=== PATIENT | male | born 1985 | race Caucasian/White ===

== ENCOUNTER 2017-10-16 15:16 | Inpatient (IN) | payer SELFPAY ==
[2017-10-16] MEDS ORDERED: Labetalol IV* 5 MG/ML 20 ML VIAL IV PUSH ONE (16:08)
[2017-10-16] MEDS ORDERED: NS 0.9% 1000 ML* 1,000 ML IV ONE (16:08)
[2017-10-16 16:18] LABS: ABS Basophils 0.1 10^3/ul (0-0.2); ABS Eosinophils 0.1 10^3/ul (0-0.6); ABS Lymphocytes 2.6 10^3/ul (1.0-4.8); ABS Monocytes 0.9 10^3/ul (0-0.8); ABS Neutrophils 4.6 10^3/ul (1.5-7.7); ABS Nucleated RBC 0 10^3/ul; Eosinophil % 1.3 % (0-6); Hematocrit 41 % (42-52); Hemoglobin 13.8 g/dl (14.0-18.0); Lymphocyte % 31.3 % (25-47); Mean Corpuscular HGB Conc 34 g/dl (31-36); Mean Corpuscular Hemoglobin 27 pg (27-31); Mean Corpuscular Volume 80 fL (80-94); Mean Platelet Volume 7.8 um3 (7.4-10.4); Nucleated Red Blood Cells % 0.1; Platelet Count 299 10^3/ul (150-450); Red Blood Count 5.18 10^6/ul (4.0-5.4); Red Cell Distribution Width 15 % (10.5-15); White Blood Count 8.4 10^3/ul (3.5-10.8)
[2017-10-16 16:27] LABS: INR 1.4 (0.77-1.02)
[2017-10-16 16:38] LABS: EGFR Non-African American 188.3 (>60)
--- NOTE | 2017-10-16 16:46 | RAD ---
Indication: Chest pain. Single frontal view of the chest performed at 1620 hours was reviewed. No prior study is available for comparison. Cardiomegaly. No mediastinal shift is noted. Lung moraes demonstrate prominent vascular markings which may represent vascular congestion however no definite pneumonia is noted. IMPRESSION: CARDIOMEGALY WITH MILD VASCULAR CONGESTION.
[2017-10-16] MEDS ORDERED: Iohexol 350* (CONTRAST) 500 ML MDV IV ONE (17:14)
[2017-10-16] MEDS ORDERED: Propranolol TAB* 20 MG PO ONE (17:24)
[2017-10-16] MEDS ORDERED: Magnesium Oxide TAB* 400 MG PO ONE (17:38)
--- NOTE | 2017-10-16 18:11 | RAD ---
Indication: Shortness of breath, chest pain. Contrast: Administered 85.2 ml of OMNIPAQUE 350 mg/ml CTA of the chest performed after IV contrast administration. Coronal and sagittal reconstructed images were obtained. The pulmonary arterial tree is well opacified. There are no filling defects present to suggest pulmonary embolus. The thoracic aorta demonstrates no evidence of thoracic aortic dissection or aneurysmal dilatation. There is cardiomegaly noted without evidence of pericardial effusion. There is a moderate-sized right pleural effusion noted. The trachea and major bronchi appear patent. Prominent vascular markings suggestive of CHF is present. The lung moraes demonstrate no focal nodules. There is moderate mediastinal adenopathy noted. There is right paratracheal lymph nodes measuring up to 18 mm, pretracheal lymph node measuring up to 17 mm, prevascular space lymph node measuring up to 17 mm. AP window lymph nodes are noted measuring up to 11 mm. Precarinal lymph nodes are noted measuring up to 19 mm. Right hilar adenopathy measuring up to 31 mm is noted. Subcarinal lymph nodes are noted measuring up to 15 mm. The visualized abdominal organs are otherwise unremarkable. Multiple gallstones are noted in the gallbladder. IMPRESSION: No evidence of pulmonary embolus is noted. Moderate degree of right pleural effusion with vascular congestion. Moderate degree of mediastinal and hilar adenopathy of uncertain etiology.
[2017-10-16] MEDS ORDERED: Propranolol TAB* 40 MG PO ONE (18:35)
[2017-10-16] MEDS ORDERED: Magnesium Sulfate 2 GM IV* 2 GM/50 ML BAG IVPB ONE (19:02)
[2017-10-16] MEDS: Hydrocortisone INJ* 100 MG VIAL IV SCH (19:52)
[2017-10-16] MEDS: Ondansetron 40 MG VIAL* 2 MG/ML 20 ML VIAL IV PRN (20:21)
--- NOTE | 2017-10-16 20:30 | RAD ---
Indication: Thyromegaly. Real-time sonography of the thyroid was performed. The right lobe measures 5.7 x 2.6 x 2.5 cm. The left lobe measures 5.7 x 2.6 x 2.4 cm. The thyroid is enlarged. Heterogeneous echotexture is noted. IMPRESSION: Heterogeneously enlarged thyroid gland.
[2017-10-16] MEDS: Propylthiouracil TAB* 50 MG PO SCH ×2 (20:45→23:40)
[2017-10-16] MEDS: Heparin VIAL(*) 5000 UNITS/ML VIAL (FIVE THOUSAND) SUBCUT SCH (21:56)
[2017-10-16] MEDS ORDERED: diPHENhydraMINE PO* 50 MG PO PRN (23:14)
--- NOTE | 2017-10-16 23:25 | HP ---
HISTORY AND PHYSICAL: DATE OF ADMISSION: 10/16/17 PRIMARY CARE PROVIDER: None. ATTENDING PHYSICIAN: Dr. Dante Prieto * (dictated by Joy Torrez NP) . CHIEF COMPLAINT: Shortness of breath and midsternal chest pain. HISTORY OF PRESENT ILLNESS: Mr. Pearce is a 31-year-old male with no significant past medical history who states that for approximately 1 year he has had shortness of breath that started out as exertional and has increased to at rest. He also reports being unable to barely go up 1 flight of stairs without significant shortness of breath. He reports developing midsternal constant chest discomfort that has been present for a week. He feels as though Advil may be helping somewhat his discomfort, the pain is worse with deep breaths. He has also been tachycardic with heart rates in the 140s for the last few months. He has been checking his heart rates on his cell phone. He reports abdominal bloating, but denies abdominal pain. He has lower extremity edema, but states that he always has "large legs." The patient states that his shortness of breath is worse when lying back. He denies any fevers, chills, cough. He also reports daily vomiting for 1 to 2 months and nausea. He has upper and lower extremity tremors for approximately 1 year. He reports having no energy. He reports often feeling "hot" and having poor heat tolerance. He denies any urinary symptoms. He reports having some diarrhea when he has the other GI upset of nausea and vomiting. He reports steadily gaining weight over the last few years, but has lost 25 pounds in 10 months without trying to lose weight. He denies anxiety and has been having difficulty sleeping. Due to his increased shortness of breath, he presented to the emergency room for further evaluation. While in the emergency room, the patient was noted to be in sinus tachycardia. He received a dose of IV labetalol. He had a chest x-ray showing cardiomegaly with mild vascular congestion. His magnesium was 1.7. His total bilirubin 2.3 , ALT 48, AST 49. TSH 0.00, T4 19.96. BNP 560. D-dimer 377. He was noted to be mildly anemic with a hemoglobin of 13.8 and hematocrit of 41. He had a CTA of his chest showing no evidence of pulmonary embolus, moderate degree of right pleural effusion with vascular congestion, moderate degree of mediastinal and hilar adenopathy of uncertain etiology. The patient additionally received propranolol in the emergency room. His heart rate continued to be in the 130s to 140s. Hospitalists were asked to evaluate the patient for admission. PAST MEDICAL HISTORY: None. PAST SURGICAL HISTORY: Status post wisdom teeth extraction. HOME MEDICATIONS: Multivitamin 1 tablet oral daily. ALLERGIES: No known drug allergies. FAMILY HISTORY: The patient denies any family history of thyroid disease, coronary artery disease, diabetes mellitus. He had a paternal grandmother with a history of a brain tumor. SOCIAL HISTORY: The patient has smoked intermittently for 16 years up to a half a pack a day. He is currently not smoking. He drinks 2 beers daily, but states he has not drank beer in a week. He denies recreational drugs. His mother, Zora Knapp, will be his surrogate decision maker in the event he is unable to make decisions for himself. REVIEW OF SYSTEMS: I performed an 11-point review of systems. All the pertinent positives and negatives are mentioned in the history of present illness. The remaining review of systems is negative. PHYSICAL EXAMINATION GENERAL APPEARANCE: The patient is alert, pleasant, appears to be in no acute distress. VITAL SIGNS: Temperature 97.8, heart rate 137, respiratory rate 19, O2 sat 94% on room air, blood pressure 120/95. HEENT: Normocephalic, atraumatic. Pupils are equal and reactive to light. Extraocular movements are intact. NECK: Supple. No lymphadenopathy noted. Large, and jugular vein distention noted. RESPIRATORY: There is no accessory muscle use. Lungs have crackles in bilateral bases. CARDIOVASCULAR: Regular rate and rhythm. Tachycardic. S1, S2 present. There are no murmurs, rubs, or gallops heard. ABDOMEN: Soft, large, nontender, and nondistended. There are bowel sounds present x4. EXTREMITIES: There is 1 to 2+ bilateral lower extremity edema. DP and PT pulses are 2+ and symmetric. MUSCULOSKELETAL: There is no clubbing or cyanosis noted. The patient exhibits good strength in all extremities. Bilateral upper extremity resting tremors. NEUROLOGICAL: The patient is alert and oriented x4. Cranial nerves II through XII are grossly intact. The patient has hyper reflexes in his left patella and right ankle. PSYCHOLOGICAL: The patient is calm and cooperative. SKIN: There are no rashes or abnormalities seen. DIAGNOSTIC STUDIES/LABORATORY DATA: Sodium 141, potassium 3.7, chloride 109, CO2 21, BUN 11, creatinine 0.51, glucose 107. White blood cell count 8.4, hemoglobin 13.8, hematocrit 41, platelet count 299. Magnesium 1.7, alk phos 134. TSH 0.00, T4 19.96. BNP 516. D-dimer 377. AST 49, ALT 48, total bilirubin 2.30. EKG shows a sinus tachycardia at a rate of 140. There is no previous EKGs for comparison. No acute signs of ischemia present. Chest x-ray from today. Radiologist's impression: Cardiomegaly with mild vascular congestion. Chest CTA from today. Radiologist's impression: No evidence of pulmonary embolus is noted. Moderate degree of right pleural effusion with vascular congestion. Moderate degree of mediastinal and hilar adenopathy of uncertain etiology. IMPRESSION: Mr. Pearce is a 31-year-old male with no significant past medical history who presents to the emergency room with complaints of shortness of breath, chest pain, and tachycardia. He will be admitted as an inpatient for thyroid storm and cardiomyopathy. ASSESSMENT/PLAN: 1. Thyroid storm. The patient has tachycardia. He is afebrile. He has no agitation, delirium, psychosis. He does have nausea and vomiting. Additionally , he has crackles giving him 40 points and supporting the diagnosis of thyroid storm. The patient was started on propranolol in the emergency room. I am going to give home an additional 40 mg of propranolol now and then continue him on propranolol 60 mg every 6 hours. Additionally, I have started him on PTU 200 mg oral every 4 hours and hydrocortisone 100 mg IV every 8 hours. I have placed a call to Dr. Alejandra for consultation and I am awaiting a callback at the time of this dictation. Additionally, I have reviewed the case by Dr. Bailey, who is the dispatch machine runner component engineer. We will get a thyroid ultrasound. 2. Tachycardia. I suspect secondary to a thyroid storm. Additionally, the patient appears to have cardiomyopathy I suspect secondary to tachycardia. I am going to hold on diuresis at this time. We will work on controlling his heart rate. We will get an echocardiogram tomorrow. We will get daily weights , strict I's and O's. The patient will be on a low-sodium diet. 3. Elevated D-dimer. CTA was negative for pulmonary embolus. 4. Hypomagnesium. The patient received p.o. and will also receive IV magnesium replacement. We will recheck his magnesium in the morning. 5. Pleural effusion. I suspect this is secondary to the patient's cardiomyopathy. We will ask either Dr. Ch or Dr. Bailey to do a thoracentesis tomorrow. We will get an LDL to eval for possible lymphoma. The patient has mediastinal lymphadenopathy noted on his CTA. 6. Chest pain. The patient's initial troponin is 0.03. We will continue to trend his troponin and monitor on tele. I suspect the chest pain is secondary to the tachycardia and thyroid storm. 7. Elevated LFTs. We will recheck labs in the morning. If they continue to be elevated, he will need further work-up such as a liver ultrasound. 8. Mediastinal lymphadenopathy. We will check a peripheral smear and LDH to eval for possible lymphoma. 9. Fluids, electrolytes, and nutrition. The patient will be on a low-sodium diet. 10. Code status. Full code. 11. DVT prophylaxis. The patient is at high risk and will be placed on subcu heparin. 12. Disposition. Inpatient. TIME SPENT: Time for this admission was approximately 60 minutes, greater than half of that was spent with the patient and his mother discussing medications, past medical history, and the events leading up to his arrival today, performing a physical examination. The case has been reviewed with the attending, Dr. Prieto, in addition to Dr. Bailey the dispatch machine runner component engineer, who agree with the plan of care. Reviewed by MADELEINE DOYLE 10/17/17 0942 [id number] #: [id number] KAR[facility]
[2017-10-16] MEDS: Propranolol TAB* 60 MG PO SCH (23:40)
[2017-10-17] MEDS ORDERED: diPHENhydraMINE PO* 25 MG ONE (00:10)
[2017-10-17] MEDS ORDERED: Morphine INJ* 4 MG/ML 1 ML CARPUJECT IV PRN (03:21)
[2017-10-17] MEDS ORDERED: Morphine VIAL* 4 MG/ML VIAL (1 ml vial) IV ONE ×2 (03:23→03:32)
[2017-10-17] MEDS ORDERED: Morphine INJ* 4 MG/ML 1 ML CARPUJECT IV ONE (03:26)
[2017-10-17] MEDS: Hydrocortisone INJ* 100 MG VIAL IV SCH ×3 (03:36→20:52)
[2017-10-17] MEDS: Propylthiouracil TAB* 50 MG PO SCH ×6 (03:40→23:03)
[2017-10-17 04:26] LABS: EGFR Non-African American 169.1 (>60)
[2017-10-17] MEDS: Heparin VIAL(*) 5000 UNITS/ML VIAL (FIVE THOUSAND) SUBCUT SCH (06:22)
[2017-10-17] MEDS: Propranolol TAB* 60 MG PO SCH ×4 (06:22→23:02)
--- NOTE | 2017-10-17 07:21 | CONSULT ---
History: "I came in because I couldn't breath 2 nights ago - I was up all night" 1 year history: Rapid heart beat Tremors arms/legs Foot pain 2 months - "lots of nausea" Slow decline of "lung capacity" for about 1 year - "Hit me super-hard the other night" Gradual onset of symptoms. Thyroid: Weight - lost 25 lbs over the year. Temperature intolerance "always too hot" Appetite - nausea has been a major trouble. Nauseated Eating habits "trying to deal with nausea - loss of appetite" Strength - weaker Change in bowel habit - "not really". Bowel movements - 4 - 5 per day. Mood - "hard to say - I haven't really noticed" Sleep - "I can't sleep" Skin/Hair - no changes. On his right stephen - it itches. CVS: Edema: "Always had thick legs - everyone thinks they are swollen" Tachycardia - 3 - 4 months Shortness of breath - 1 year Chest pain - yes - 1 week - " in the center of my chest". Radiation - " same spot on my back - right the way through me". "5-6/10 at its worst". Tightness and pressure. No syncope. 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 Current Medications: Current Medications Diphenhydramine HCl (Benadryl Po*) 50 mg PO BEDTIME PRN PRN Reason: INSOMNIA Last Admin: 10/17/17 00:15 Dose: 50 mg Heparin Sodium (Porcine) (Heparin Vial(*)) 5,000 units SUBCUT Q8HR AJAY Last Admin: 10/17/17 06:22 Dose: 5,000 units Hydrocortisone Sodium Succinate (Solu-Cortef*) 100 mg IV Q8H [facility] Last Admin: 10/17/17 03:36 Dose: 100 mg Multivitamins/Minerals (Theragran/Minerals Tab*) 1 tab PO DAILY [facility] Omeprazole (Prilosec Cap*) 20 mg PO BID [facility] Ondansetron HCl (Zofran 40 Mg Vial*) 4 mg IV Q6H PRN PRN Reason: NAUSEA Last Admin: 10/16/17 20:21 Dose: 4 mg Propranolol HCl (Inderal Tab*) 60 mg PO Q6H [facility] Last Admin: 10/17/17 06:22 Dose: 60 mg Propylthiouracil (Ptu Tab*) 200 mg PO Q4H [facility] Last Admin: 10/17/17 03:40 Dose: 200 mg - Review of Systems Constitutional Symptoms: Yes: Fatigue, No: Weight Loss, Fever, Night Sweats Thyroid: Positive: Goiter, Heat Intolerance, Sweatiness, Tremor, Frequent Defecation, Palpitations Endocrinology: Negative: Normal, Adrenal Problems, Gonadal Problems, Family Hx Endocrine Disorders, Obesity, Calluses, Hirsutism, Menstral Abnormalities, Polydipsia, Polyuria, Gonadal Problems, Gynecomastia, Pituitary disease, Other Cardiology: Positive: Chest Pain, Shortness of Breath, Palpitations, Swelling of Ankles Pulmonary: Positive: Sputum, Exercise Intolerance, Home Oxygen Negative: Normal, Hemoptysis, Wheezing, Respiratory Distress, Shortness of Breath, COPD, Asthma, Other Gastroenterology: Positive: Abdominal Pain, Nausea, Vomiting, Anorexia, Indigestion, Difficulty Swallowing - hurts - chest pain, Heartburn, Diarrhea, Change in Bowel Habits Negative: Normal, Constipation, Blood in Stools, Other Eyes: Negative: Normal, Change in Vision, Double Vision, Eye Pain, Glaucoma, Cataract, Contacts or Glasses, Other Neurology: Positive: Unexplained Weakness Negative: Normal, Headache, Migraines, Change in Vision, Diplopia, Dizziness , Change in Balancing, Change in Coordination, Change in Memory, Change in Speech, Change in Sphincter Function, Change in Walking, Numbness\\Paresthesiae, Hx of Stroke\\TIA, Hx of Seizures, Other Dermatology: Rash: Yes - right stephen itchy patch Genital - Urinary: Negative: Normal, Dysuria, Hematuria, Polyuria, Nocturia, Other Musculoskeletal: Negative: Joint Pain, Joint Stiffness, Arthritis, Osteoporosis, Low Back Pain , Sciatica, Joint Deformities, Kyphoscoliosis, Other Allergic/Immunologic: Positive: Other Negative: Hx Anaphylaxis, Hx Angioedema, Hx Environmental, Hx Seasonal, Athsma, Hx HIV - No other autoimmune disease, Immunocompromise, Swollen Glands LymphNodes Past Medical History: Surgery: [place] teeth Hospitalizations - none No other comorbidities Home Medications: Home Medications Medication Instructions Recorded Confirmed Type Multivitamins/Minerals TAB* 1 tab PO DAILY 10/16/17 10/16/17 History [Theragran/minerals TAB*] Allergies: Allergies Allergy/AdvReac Type Severity Reaction Status Date / Time No Known Allergies Allergy Verified 10/16/17 16:05 - Family History Family History: Thyroid disease - paternal grandmother, paternal uncle - thyroid cancer. 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 Vital Signs 10/16/17 10/16/17 10/16/17 19:00 19:21 19:22 Temperature 98.8 F Pulse Rate 138 138 Respiratory 21 20 15 Rate Blood Pressure 138/100 142/94 (mmHg) O2 Sat by Pulse 96 99 Oximetry 10/16/17 10/16/17 10/16/17 19:26 19:30 19:45 Temperature 98.3 F Pulse Rate 138 140 139 Respiratory 20 26 36 Rate Blood Pressure 142/94 129/98 130/94 (mmHg) O2 Sat by Pulse 98 97 97 Oximetry 10/16/17 10/16/17 10/16/17 20:00 20:01 20:15 Temperature Pulse Rate 138 139 138 Respiratory 32 25 21 Rate Blood Pressure 129/97 116/90 (mmHg) O2 Sat by Pulse 99 98 97 Oximetry 10/16/17 10/16/17 10/16/17 20:39 21:00 21:01 Temperature Pulse Rate 134 134 133 Respiratory 26 24 18 Rate Blood Pressure 112/94 140/90 (mmHg) O2 Sat by Pulse 97 96 97 Oximetry 10/16/17 10/16/17 10/16/17 21:31 22:00 22:30 Temperature Pulse Rate 136 135 135 Respiratory 26 29 27 Rate Blood Pressure 124/93 120/92 126/85 (mmHg) O2 Sat by Pulse 96 95 95 Oximetry 10/16/17 10/16/17 10/16/17 23:00 23:01 23:31 Temperature Pulse Rate 138 262 133 Respiratory 21 25 24 Rate Blood Pressure 126/86 121/90 (mmHg) O2 Sat by Pulse 98 96 93 Oximetry 10/16/17 10/16/17 10/17/17 23:45 23:50 00:00 Temperature 98.5 F Pulse Rate 131 132 Respiratory 22 22 20 Rate Blood Pressure 130/83 (mmHg) O2 Sat by Pulse 93 94 Oximetry 10/17/17 10/17/17 10/17/17 01:00 02:00 03:00 Temperature Pulse Rate Respiratory 26 29 24 Rate Blood Pressure 117/89 124/91 (mmHg) O2 Sat by Pulse Oximetry 10/17/17 10/17/17 10/17/17 03:28 03:54 04:00 Temperature 96.5 F Pulse Rate Respiratory 30 23 21 Rate Blood Pressure 115/81 (mmHg) O2 Sat by Pulse Oximetry 10/17/17 10/17/17 05:00 06:00 Temperature Pulse Rate Respiratory 20 21 Rate Blood Pressure 119/80 122/83 (mmHg) O2 Sat by Pulse Oximetry - Physical Exam General Physical Exam Comment: He has a patch of pre-tibial myxedema right stephen General: No Cyanosis, No Anemia, No Jaundice, No Lymphadenopathy, No Clubbing -: No Tremor, Yes Goiter - 30 grams, firm, No Thyroid Nodule, No Thyroid Bruit, No Thyroid Tenderness, No Hoarseness, No Cervical adenopathy, No Supraclav. adenopathy, Yes Proptosis, No Conjunctival Injection, No Lid Lag, No Periorbital Edema, No Dysconjugate Eye Movement, No Other Endocrine: Yes Central Obesity, No Testicular Atrophy, No Under developed secondary sexual characteristics, No Expresible galactorrhea, No Acromegaly, No Vitiligo, No Flushing, No Acanthosis nigricans, No Violaceious striae, No Mel Syndrome, No Buccal pigmenatation, No Otto Crease Pigmentation Lungs and Chest: Yes: Chest Expansion Full, Chest Expansion Symetrica, Percussion Note Resonant, Vessicular Breath Sounds Heart Rate and Rhythm: Tachycardia JVP: Elevated [place] Beat: Displaced Additional Cardiovascular: Yes: Normal Heart Sounds, Heart Murmur, Pedal Edema Abdominal Exam: Yes: Soft, Abdominal Tenderness - epigastric. No: Distention, Rigidity, Abdominal Mass, Hepatomegaly, Splenomegaly, Guarding, Rebound Tenderness, Kidneys Palpable, Normal Bruit, Abnormal Bruit, Bowel Sounds Present Eye Exam: bilateral: EOMI - normal Skin: Abnormal: Rash - Extremities Cranial Nerves II-XII Intact: Yes Limbs: Normal Power, Normal Tone Lab Results: Laboratory Results - last 24 hr 10/16/17 10/16/17 10/17/17 19:43 21:55 03:56 Sodium 138 L Potassium 4.9 Chloride 106 Carbon Dioxide 21 L Anion Gap 11 BUN 15 Creatinine 0.56 L Est GFR ( Amer) 217.4 Est GFR (Non-Af Amer) 169.1 BUN/Creatinine Ratio 26.8 H Glucose 112 H Calcium 9.7 Magnesium 2.2 Total Bilirubin 2.80 H AST 53 H ALT 52 Alkaline Phosphatase 161 H Troponin I 0.03 0.02 Total Protein 6.8 Albumin 3.8 Globulin 3.0 Albumin/Globulin Ratio 1.3 LDL Cholesterol Direct 97 Radiology Results: Patient Name: JORI MOY Medical Record#: [id number] Ordering Physician: ANGELI Torrez Acct.#: [id number] : 1985 Age: 31 Sex: M Location: INTENSIVE CARE UNIT Exam Date: 10/16/171912 ADM Status: ADM IN Order Information: US THYROID Accession Number: [id number] CPT: 65086 Indication: Thyromegaly. Real-time sonography of the thyroid was performed. The right lobe measures 5.7 x 2.6 x 2.5 cm. The left lobe measures 5.7 x 2.6 x 2.4 cm. The thyroid is enlarged. Heterogeneous echotexture is noted. IMPRESSION: Heterogeneously enlarged thyroid gland. <Electronically signed by Carina Cortes MD in OV> 10/16/172026 Dictated By: Carina Cortes MD Dictated Date/Time: 10/16/172026 Transcribed Date/Time: 10/16/172025 Copy to: CC:Donald Alejandra MD; Dante Prieto MD; Joy Torrez NP; Yelena Ch MD; No Primary Care Phys,NOPCP Imaging - [facility] - [facility] - [facility] [id number] [place] [address] [place] [address] ph ([phone]) ph ([phone]) ph ([phone]) Patient Name: JORI MOY Medical Record#: [id number] Ordering Physician: Enoc Russo MD Acct.#: [id number] : 1985 Age: 31 Sex: M Location: EMERGENCY DEPARTMENT Exam Date: 10/16/171707 ADM Status: REG ER Order Information: CTA CHEST Accession Number: [id number] CPT: 62012 Indication: Shortness of breath, chest pain. Contrast: Administered 85.2 ml of OMNIPAQUE 350 mg/ml CTA of the chest performed after IV contrast administration. Coronal and sagittal reconstructed images were obtained. The pulmonary arterial tree is well opacified. There are no filling defects present to suggest pulmonary embolus. The thoracic aorta demonstrates no evidence of thoracic aortic dissection or aneurysmal dilatation. There is cardiomegaly noted without evidence of pericardial effusion. There is a moderate-sized right pleural effusion noted. The trachea and major bronchi appear patent. Prominent vascular markings suggestive of CHF is present. The lung moraes demonstrate no focal nodules. There is moderate mediastinal adenopathy noted. There is right paratracheal lymph nodes measuring up to 18 mm, pretracheal lymph node measuring up to 17 mm, prevascular space lymph node measuring up to 17 mm. AP window lymph nodes are noted measuring up to 11 mm. Precarinal lymph nodes are noted measuring up to 19 mm. Right hilar adenopathy measuring up to 31 mm is noted. Subcarinal lymph nodes are noted measuring up to 15 mm. The visualized abdominal organs are otherwise unremarkable. Multiple gallstones are noted in the gallbladder. IMPRESSION: No evidence of pulmonary embolus is noted. Moderate degree of right pleural effusion with vascular congestion. Moderate degree of mediastinal and hilar adenopathy of uncertain etiology. <Electronically signed by Carina Cortes MD in OV> 10/16/171806 Dictated By: Carina Cortes MD Dictated Date/Time: 10/16/171806 Transcribed Date/Time: 10/16/171801 Copy to: CC:No Primary Care Phys,NOPCP; Enoc Russo MD [facility] [address] [address] ph ([phone]) ph ([phone]) ph ([phone]) 1 of 2 Patient Name: JORI MOY Medical Record#: [id number] Ordering Physician: Enoc Russo MD Acct.#: [id number] : 1985 Age: 31 Sex: M Location: EMERGENCY DEPARTMENT Exam Date: 10/16/17 1556 ADM Status: REG ER Order Information: CHEST AP PORTABLE Accession Number: [id number] CPT: 36275 Indication: Chest pain. Single frontal view of the chest performed at 1620 hours was reviewed. No prior study is available for comparison. Cardiomegaly. No mediastinal shift is noted. Lung moraes demonstrate prominent vascular markings which may represent vascular congestion however no definite pneumonia is noted. IMPRESSION: CARDIOMEGALY WITH MILD VASCULAR CONGESTION. <Electronically signed by Carina Cortes MD in OV> 10/16/171641 Dictated By: Carina Cortes MD Dictated Date/Time: 10/16/171641 Transcribed Date/Time: 10/16/171641 Copy to: CC:No Primary Care Phys,NOPCP; Enoc Russo MD [facility] [address] [facility] [address] [place], [place] [id number] [place] [id number] [place] [address] ph ([phone]) ph ([phone]) ph ([phone]) EKG Report: EKG 10/16/17 rate 141 IN 789 QTC 512 QRS axis -34 Ectopic atrial tachycardia Assessment - Problem List Assessment: Patient Problems Elevated alkaline phosphatase level (Acute) Epigastric pain (Acute) Graves disease (Acute) High output congestive heart failure (Acute) Hilar lymphadenopathy (Acute) Insomnia (Acute) Mediastinal lymphadenopathy (Acute) Nausea and vomiting (Acute) Obstructive hyperbilirubinemia (Acute) 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 He has marked hyperthyroidism, typical symptoms, elevation of his thyroid hormone indices and suppressed TSH. 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 He requires high doses of PTU (he is receiving them), higher doses of propranolol - this will block T4 to T3 conversion, and high doses of steroids (he is receiving them parenterally) - this also blocks T4 to T3 conversion. He cannot have radioiodine therapy for 3 months owing to the contrast in the CTA. He is too sick for a thyroidectomy currently. * High output congestive heart failure (Acute) He has evidence of CHF - his JVP is distended, heart is enlarged, he has edema, he has a pleural effusion and his BNP is elevated. He is having an echocardiogram. This may show mitral and tricuspid regurgitation. He requires diuretic therapy as well as beta blockade. He requires a cardiology consultation * Insomnia (Acute) For a more effective hypnotic Nausea and vomiting (Acute)/Epigastric pain (Acute) I think he has evidence of some gastritis - he has been taking ibuprofen twice daily for the past week. Obstructive hyperbilirubinemia (Acute)Elevated alkaline phosphatase level (Acute ) This is likely a combination of the hyperthroidism and passive congestion from the high output cardiac failure Pretibial myxedema (Acute) He has a patch of itching on his right stephen - typical pre-tibial myxedema - this responds to steroids (topical/systemic) Mediastinal and hilar adenopathy - I am not sure as to the cause of this. It may be secondary to the Graves' disease. However, we should be vigilant about other pathologies (lymphoma etc). I think diagnosis can wait until he is stable. I discussed the above with the patient: The nature of Grave's disease, pathophysiology, natural history, high output cardiac failure, therapeutics ( side effects of PTU - agranulocytosis/fulminant hepatitis), definitive therapy - radioiodine (delayed due to contrast), or surgery. I discussed the possibility of heart valve abnormalities/cardiomyopathy - this often remodels over a period of many months. Time Spent with Direct Patient Care: 90 mins
[2017-10-17] MEDS ORDERED: Omeprazole CAP* 20 MG PO SCH (07:30)
[2017-10-17] MEDS: Multivitamins/Minerals TAB PO SCH (09:07)
[2017-10-17] MEDS ORDERED: Adenosine* 3 MG/ML VIAL ONE ×3 (09:21→09:31)
[2017-10-17] MEDS ORDERED: Atropine SYRINGE* 0.1 MG/ML 10 ML SYRINGE (1 MG) ONE (09:27)
--- NOTE | 2017-10-17 09:33 | RAD ---
INDICATION: Hyperbilirubinemia. COMPARISON: Comparison is made with a prior CT of the abdomen and pelvis from January 22, [address] angiogram of the chest from October 16, 2017. TECHNIQUE: Multiple real-time images of the right upper quadrant were obtained. FINDINGS: There are areas of increased echogenicity present within the gallbladder with shadowing consistent with multiple gallstones. The gallbladder wall is thickened measuring up to 7 mm in thickness. No pericholecystic fluid is present. The patient was tender over the gallbladder while scanning. No intra or extrahepatic ductal distention is present. The common bile duct measured 0.3 cm in diameter. The liver is enlarged without significant focal abnormality. The pancreas is obscured by overlying bowel gas. The right kidney is normal in size without evidence for hydronephrosis. There is a right pleural effusion present. IMPRESSION: 1. CHOLELITHIASIS, IN ADDITION THERE IS THICKENING OF THE GALLBLADDER WALL SUGGESTING THE POSSIBILITY OF ACUTE CHOLECYSTITIS. RECOMMEND CLINICAL CORRELATION. 2. HEPATOMEGALY. 3. RIGHT PLEURAL EFFUSION.
--- NOTE | 2017-10-17 09:36 | CONSULT ---
Subjective Date of Service: 10/17/17 Interval History: Admission Date: 10/16/17 Consult date 10/17/2017 Provider: Hospitalist/Assembly Line Leader service CHIEF COMPLAINT: Shortness of breath Reason for consult: CHF, atrial flutter HISTORY OF PRESENT ILLNESS: Mr. Pearce is a 31-year-old male with a history of obesity, does not see physicians regularly. He has had symptoms of about a year. They have progressed the last several months. Starting several months ago with home monitoring he noticed his heart rate was about 140 bpm consistently. He has had dyspnea on limited activity, pleuritic chest discomfort, abdominal bloating and lack of energy. He has had 25 pound of unintentional weight loss. 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 He denies any syncope. He was found with 2:1 atrial flutter rate about 140 bpm. He has received escalating doses of beta-blockers and also adenosine 3 mg followed by 6 mg then 12 mg without breaking. His HR is now consistently 130 bpm and did not response to 500 mcg IV digoxin x 1. His echocardiogram showed severe biventricular dysfunction/failure PAST MEDICAL HISTORY: None. PAST SURGICAL HISTORY: Status post wisdom teeth extraction. HOME MEDICATIONS: Multivitamin 1 tablet oral daily. ALLERGIES: No known drug allergies. FAMILY HISTORY: The patient denies any family history of thyroid disease, coronary artery disease, diabetes mellitus. He had a paternal grandmother with a history of a brain tumor. SOCIAL HISTORY: The patient has smoked intermittently for 16 years up to a half a pack a day. He is currently not smoking. He drinks 2 beers daily, but states he has not drank beer in a week. He denies recreational drugs. His mother, Zora Knapp, will be his surrogate decision maker in the event he is unable to make decisions for himself. She is present Medications Active Medications: Diphenhydramine HCl (Benadryl Po*) 50 mg PO BEDTIME PRN PRN Reason: INSOMNIA Last Admin: 10/17/17 00:15 Dose: 50 mg Heparin Sodium (Porcine) (Heparin Vial(*)) 5,000 units SUBCUT Q8HR AJAY Last Admin: 10/17/17 06:22 Dose: 5,000 units Hydrocortisone Sodium Succinate (Solu-Cortef*) 100 mg IV Q8H AJAY Last Admin: 10/17/17 03:36 Dose: 100 mg Multivitamins/Minerals (Theragran/Minerals Tab*) 1 tab PO DAILY [facility] Last Admin: 10/17/17 09:07 Dose: 1 tab Omeprazole (Prilosec Cap*) [address] [facility] Ondansetron HCl (Zofran 40 Mg Vial*) 4 mg IV Q6H PRN PRN Reason: NAUSEA Last Admin: 10/16/17 20:21 Dose: 4 mg Propranolol HCl (Inderal Tab*) 120 mg PO Q6H [facility] Last Admin: 10/17/17 09:07 Dose: 120 mg Propylthiouracil (Ptu Tab*) 200 mg PO Q4H [facility] Last Admin: 10/17/17 09:07 Dose: 200 mg Zolpidem Tartrate (Ambien Tab*) 10 mg PO BEDTIME PRN PRN Reason: INSOMNIA Home Medications: Multivitamins/Minerals TAB* [Theragran/minerals TAB*] 1 tab PO DAILY 10/16/17 [ History Confirmed 10/16/17] Review of Systems - Measurements Intake and Output: Intake and Output Last 24 Hours 10/15/17 10/16/17 10/17/17 10/18/17 06:59 06:59 06:59 06:59 Intake Total 811 Output Total 700 0 Balance 111 0 Weight 272 lb 4.334 oz Intake: IV Fluids 50 NS (0.9%) 50 Medicated IV 61 GEN - Magnesium 61 Oral 700 Output: Urine 700 0 Other: Estimated Void Medium Date of Last Bowel 10/17/17 Movement # Bowel Movements 1 Estimated Stool Amount Medium # Voids 1 - Review of Systems Constitutional Symptoms: Positive: Weight Loss, Weakness, Fatigue Dermatology: Negative: Rash, Skin Lesions, Skin Lumps HEENT: Negative: Change in Hearing, Vertigo Eyes: Negative: Change in Vision, Double Vision Thyroid: Positive: Primary Hyperthyroidism, Weight Loss Negative: Normal, Primary Hypothyroidism, Weight Gain, Change in Skin/Hair, Change in Menstration Pulmonary: Positive: Respiratory Distress, Shortness of Breath, Exercise Intolerance Negative: Hemoptysis, Wheezing, COPD, Asthma, Home Oxygen Cardiology: Positive: Chest Pain, Shortness of Breath, Palpitations, Edema Gastroenterology: Positive: Nausea Negative: Heartburn, Constipation, Diarrhea, Blood in Stools, Change in Bowel Habits, Haematemesis Genital - Urinary: Negative: Dysuria, Hematuria, Polyuria Musculoskeletal: Negative: Joint Pain, Joint Stiffness Endocrinology: Positive: Obesity Negative: Diabetes, Hyperglycemia, Hypoglycemia, Polydipsia, Polyuria Hematologic/Lymphatic: Negative: Anemia, Easy Brusing, Hx Leukemia, Hx Lymphoma, Use of Anticoagulant, Use of Antiplatelet Drugs Neurology: Negative: Headaches, Migraines, Change in Vision, Diplopia, Dizziness, Change in Balancing, Change in Coordination, Change in Memory, Change in Speech , Change in Sphincter Function, Hx of Stroke\TIA, Hx Seizures Psychiatry: Negative: Depression, Anxiety, Guilt Feelings, Tearfulness Allergic/Immunologic: Negative: Hx HIV, Immunocompromise Review of Systems Statement: All other review of systems negative, unless stated above. Objective Vital Signs: Temp Pulse Resp BP Pulse Ox 96.5 F 132 22 115/92 94 10/17/17 04:00 10/17/17 00:00 10/17/17 08:04 10/17/17 08:04 10/17/17 00:00 Oxygen Devices in Use Now: None Appearance: obese, not toxic appearing Ears/Nose/Mouth/Throat: Clear Oropharnyx, Mucous Membranes Moist Neck: Trachea Midline, - - uncertain jvp Respiratory: - - mild increased work of breathing and tachypnea, decreased bs bases Cardiovascular: - - tachycardia, regular, uncertain extra heart sound, no significant murmur noted Abdominal: - - obese, nontender Extremities: No Clubbing, Cyanosis, - - legs obese with edema Skin: No Rash or Ulcers Neurological: Alert and Oriented x 3 Laboratory Results: 10/16/17 16:04 10/17/17 03:56 INR (Anticoag Therapy) 1.40 (0.77-1.02) H 10/16/17 16:04 APTT 34.2 seconds (26.0-36.3) 10/16/17 16:04 Total Bilirubin 2.80 mg/dL (0.2-1.0) H 10/17/17 03:56 AST 53 U/L (13-39) H 10/17/17 03:56 ALT 52 U/L (7-52) 10/17/17 03:56 Alkaline Phosphatase 161 U/L (34-104) H 10/17/17 03:56 CK-MB (CK-2) 1.8 ng/mL (0.6-6.3) 10/16/17 16:04 B-Natriuretic Peptide 560 pg/mL (-100) H 10/16/17 16:04 Total Protein 6.8 g/dL (6.4-8.9) 10/17/17 03:56 Albumin 3.8 g/dL (3.2-5.2) 10/17/17 03:56 Globulin 3.0 g/dL (2-4) 10/17/17 03:56 Albumin/Globulin Ratio 1.3 (1-3) 10/17/17 03:56 TSH 0.00 mcIU/mL (0.34-5.60) L 10/16/17 16:04 mg 2.2 10/16/17 10/16/17 10/16/17 16:04 19:43 21:55 Troponin I 0.03 0.03 0.02 inr 1.4, ptt 34.2 d-dimer 377 cortisol 14, t4 20 Diagnostic Imaging: admission: CTA of his chest showing no evidence of pulmonary embolus, moderate degree of right pleural effusion with vascular congestion, moderate degree of mediastinal and hilar adenopathy of uncertain etiology. Assessment/Plan Brant Pearce is a 31 year old man I am evaluating for new onset severe biventricular heart failure in the setting of rapid atrial flutter and thyrotoxicosis. Ruled out for ACS. - My suspicion is tachycardia (and not thyrotoxicosis directly but this causing the arrhythmia) is primarily responsible for patients cardiomyopathy - Continue propanolol - Given IV digoxin 500 mcg x 1 now (ordered) - Change AC to therapeutic lovenox (ordered) - Given lasix 20 mg IV x 1 now (ordered) - Other treatment/evaluation per Medicine/Endocrine - Will arrange for MARCO/Cardioversion later today - Discussed with Dr. Bailey Thank you for allowing me to participate in the cardiovascular care of this patient. Please do not hesitate to contact me with questions or concerns.
[2017-10-17] MEDS ORDERED: Furosemide IV* 10 MG/ML 2 ML VIAL (20 MG) IV ONE (09:37)
[2017-10-17] MEDS ORDERED: Digoxin IV* 0.5 MG/2 ML AMP (0.25 MG/ML) IV SLOW PU ONE (09:40)
[2017-10-17] MEDS ORDERED: Adenosine* 3 MG/ML VIAL IV ONE ×3 (10:09)
--- NOTE | 2017-10-17 10:37 | ECHO ---
Patient: JORI MOY [facility] Rec#: [id number] : 1985 Date: 10/17/2017 Age: 31y Height: 170.18 cm / 67.0 in Weight: 117.93 kg / 259.9 lbs Sex: M BSA: 2.26 Room#: ICU 2 Admit Date#: 10/16/2017 Type: Inpatient Referring: Joy Merino NP Reading: Jori Elizalde DO Ship Construction Teacher: Roberta RoyRDCS,RDMS CC: Donald Alejandra MD Transthoracic Echocardiogram Indication: CP, SOB BP: 122/83 HR: 132 Rhythm: Tachycardia Findings History: Tachycardia, smoker, SOB Technical Comments: The study quality is fair. Left Ventricle: The left ventricular chamber size is mildly dilated. There is no left ventricular hypertrophy. There is global hypokinesis of the left ventricle with minor regional variation. There is severely decreased left ventricular systolic function. The estimated ejection fraction is less than 20%. The assessment of diastolic function is non-diagnostic. Left Atrium: The left atrium is severely dilated. Right Ventricle: The right ventricle is moderately dilated. The right ventricular global systolic function is severely reduced. Right Atrium: The right atrial cavity size is severely dilated. Aortic Valve: The aortic valve is trileaflet. There is no evidence of aortic valve thickening. Systolic excursion of the aortic valve is normal. There is a trace of aortic regurgitation. There is no evidence of aortic stenosis. Mitral Valve: The mitral valve leaflets appear normal. There is mild mitral regurgitation. There is no evidence of mitral stenosis. Tricuspid Valve: The tricuspid valve leaflets are normal. There is mild tricuspid regurgitation. No pulmonary hypertension is noted. Pulmonic Valve: The pulmonic valve appears normal. There is a trace pulmonic regurgitation. Pericardium: There is no significant pericardial effusion. Aorta: The aortic root appears normal. There is no dilatation of the aortic arch. Pulmonary Artery: The main pulmonary artery appears normal. Venous: The inferior vena cava is dilated. There is less than 50% respiratory change in the inferior vena cava dimension. Conclusions The left ventricular chamber size is mildly dilated. There is no left ventricular hypertrophy. There is severely decreased left ventricular systolic function. The estimated ejection fraction is less than 20%. The left atrium is severely dilated. The right ventricle is moderately dilated. The right ventricular global systolic function is severely reduced. The right atrial cavity size is severely dilated. No significant valvular abnormalities noted. No pulmonary hypertension is noted. Patient appears to be in a rapid arrhythmia at the time of interpretation. None prior for comparison Measurements Name Value Normal Range RVIDd (AP) 2D 3.9 cm (0.9 - 2.6) RVDdMajor (2D) 3.5 cm (2.2 - 4.4) RAd ISD 4CH 5.5 cm (3.4 - 4.9) RA (A4C)W 6 cm (2.9 - 4.6) IVSd (2D) 0.9 cm (0.6 - 1) LVPWd (2D) 0.9 cm (0.6 - 1) LVIDd (2D) 6.2 cm (3.6 - 5.4) LVIDs (2D) 5.7 cm - LV FS (2D) 9 % (25 - 45) Aortic Annulus 2.2 cm (1.4 - 2.6) Ao root diameter (2D) 3.3 cm (2.1 - 3.5) Ascending Ao 2.7 cm (2.1 - 3.4) Aortic arch 2.7 cm (1.8 - 3.4) LA dimension (AP) 2D 5.6 cm (2.3 - 3.8) LAd ISD 4CH 7.2 cm (2.9 - 5.3) LA ISD 4CH W 5.5 cm (2.5 - 4.5) Name Value Normal Range LA ESV SP 4CH (A/L) 136.74 ml - LA ESV SP 2CH (A/L) 114.88 ml - LA ESV BP (A/L) 135.11 ml - LA ESV BP (A/L) index 60 ml/m2 - LA ESV SP 4CH (MOD) 127.4 ml - LA ESV SP 2CH (MOD) 108.28 ml - Name Value Normal Range MV E-wave Vmax 0.7 m/sec - MV deceleration time 113 msec - LV lateral e' Vmax 0.06 m/sec - LV E:e' lateral ratio 12 ratio - Name Value Normal Range AV Vmax 0.6 m/sec - AV VTI 9.5 cm - AV peak gradient 1.4 mmHg - AV mean gradient 1.3 mmHg - LVOT Vmax 0.5 m/sec - LVOT VTI 7.3 cm - LVOT peak gradient 1 mmHg - LVOT mean gradient 0.6 mmHg - JAGUAR Vmax 0.5 m/sec - Name Value Normal Range TR Vmax 2.2 m/sec - TR peak gradient 19 mmHg - RAP 8 mmHg - RVSP 27 mmHg - IVC diameter 2.7 cm - Name Value Normal Range PV Vmax 0.4 m/sec - PV peak gradient 0.6 mmHg -
--- NOTE | 2017-10-17 11:47 | ED ---
Jacobo Melchor Angela, scribed for Enoc Russo MD on 10/16/17 at 1602 . Shortness of Breath - HPI Summary HPI Summary: This pt is a 31 y/o male presenting to [facility] c/o SOB for the past year, worse now. Pt additionally states mid sternal chest pain x1 week, fast heart rate, abdominal bloating. Pt reports he has had an elevated heart rate for the past few months now. Denies abd pain, nausea, vomiting. He notes he has not followed up with a primary care physician and currently does not have one. Denies any PMHx. He denies any cardiac issues. Pt reports occasional alcohol and tobacco, but denies drug use. - History of Current Complaint Chief Complaint: EDShortnessOfBreath Time Seen by Provider: 10/16/17 15:51 Hx Obtained From: Patient Onset/Duration: Lasting Days, Still Present Timing: Constant Dyspnea At: Rest Aggrevating Factors: Nothing Alleviating Factors: Nothing Associated Signs & Symptoms: Chest Pain Unrelated to Cough, Edema - Allergy/Home Medications Allergies/Adverse Reactions: Allergies Allergy/AdvReac Type Severity Reaction Status Date / Time No Known Allergies Allergy Verified 10/16/17 16:05 Home Medications: Home Medications Multivitamins/Minerals TAB* [Theragran/minerals TAB*] 1 tab PO DAILY 10/16/17 [ History Confirmed 10/16/17] PMH/Surg Hx/FS Hx/Imm Hx Endocrine/Hematology History: Denies: Hx Diabetes Cardiovascular History: Denies: Hx Hypertension Respiratory History: Reports: Hx Asthma Infectious Disease History: No Infectious Disease History: Denies: Traveled Outside the [place] in Last 30 Days - Family History Known Family History: Negative: Cardiac Disease, Hypertension - Social History Alcohol Use: Rare Substance Use Type: Reports: Marijuana Substance Use Comment - Amount & Last Used: daily Smoking Status (MU): Current Some Day Smoker Review of Systems Negative: Fever, Chills Positive: Palpitations - fast, Chest Pain Positive: Shortness Of Breath Gastrointestinal: Other - abd bloating Negative: Abdominal Pain Skin: Negative Neurological: Negative All Other Systems Reviewed And Are Negative: Yes Physical Exam - Summary Physical Exam Summary: VITAL SIGNS: Reviewed. GENERAL: Patient is an obese male who is lying comfortable in the stretcher. Patient is ill-looking. Pt is hypertensive. HEAD AND FACE: No signs of trauma. No ecchymosis, hematomas or skull depressions. No sinus tenderness. EYES: PERRLA, EOMI x 2, No injected conjunctiva, no nystagmus. EARS: Hearing grossly intact. Ear canals and tympanic membranes are within normal limits. MOUTH: Oropharynx within normal limits. NECK: Supple, trachea is midline, no adenopathy, no JVD, no carotid bruit, no c- spine tenderness, neck with full ROM. CHEST: Symmetric, no reproducible chest pain at palpation. LUNGS: Clear to auscultation bilaterally. No wheezing or crackles. CVS: Tachycardic rate and rhythm, S1 and S2 present, no murmurs or gallops appreciated. ABDOMEN: Soft, non-tender. Abdomen is distended. No rebound no guarding, and no masses palpated. Bowel sounds are normal. EXTREMITIES: FROM in all major joints, no cyanosis or clubbing. 1+ edema in bilateral lower extremities. NEURO: Alert and oriented x 3. No acute neurological deficits. Speech is normal and follows commands. SKIN: Dry and warm Triage Information Reviewed: Yes Vital Signs On Initial Exam: Initial Vitals Temp Pulse Resp BP Pulse Ox 97.8 F 135 22 151/109 98 10/16/17 15:23 10/16/17 15:23 10/16/17 15:23 10/16/17 15:23 10/16/17 15:23 Vital Signs Reviewed: Yes Diagnostics - Vital Signs Vital Signs Temp Pulse Resp BP Pulse Ox 10/16/17 15:23 97.8 F 135 22 151/109 98 - Laboratory Lab Results: Lab Results 10/16/17 10/16/17 10/16/17 Range/Units 16:04 16:04 16:04 WBC 8.4 (3.5-10.8) 10^3/ul RBC 5.18 (4.0-5.4) 10^6/ul Hgb 13.8 L (14.0-18.0) g/dl Hct 41 L (42-52) % MCV 80 (80-94) fL MCH 27 (27-31) pg MCHC 34 (31-36) g/dl RDW 15 (10.5-15) % Plt Count 299 (150-450) 10^3/ul MPV 7.8 (7.4-10.4) um3 Neut % (Auto) 55.2 (38-83) % Lymph % (Auto) 31.3 (25-47) % Hayes % (Auto) 11.3 H (0-7) % Eos % (Auto) 1.3 (0-6) % Baso % (Auto) 0.9 (0-2) % Absolute Neuts (auto) 4.6 (1.5-7.7) 10^3/ul Absolute Lymphs (auto) 2.6 (1.0-4.8) 10^3/ul Absolute Monos (auto) 0.9 H (0-0.8) 10^3/ul Absolute Eos (auto) 0.1 (0-0.6) 10^3/ul Absolute Basos (auto) 0.1 (0-0.2) 10^3/ul Absolute Nucleated RBC 0 10^3/ul Nucleated RBC % 0.1 INR (Anticoag Therapy) 1.40 H (0.77-1.02) APTT 34.2 (26.0-36.3) seconds D-Dimer, Quantitative 377 H (Less Than 230) ng/mL Sodium 141 (139-145) mmol/L Potassium 3.7 (3.5-5.0) mmol/L Chloride 109 (101-111) mmol/L Carbon Dioxide 21 L (22-32) mmol/L Anion Gap 11 (2-11) mmol/L BUN 11 (6-24) mg/dL Creatinine 0.51 L (0.67-1.17) mg/dL Est GFR ( Amer) 242.2 (>60) Est GFR (Non-Af Amer) 188.3 (>60) BUN/Creatinine Ratio 21.6 H (8-20) Glucose 107 H (70-100) mg/dL Lactic Acid (0.5-2.0) mmol/L Calcium 9.0 (8.6-10.3) mg/dL Magnesium 1.7 L (1.9-2.7) mg/dL Total Bilirubin 2.30 H (0.2-1.0) mg/dL AST 49 H (13-39) U/L ALT 48 (7-52) U/L Alkaline Phosphatase 134 H (34-104) U/L Total Creatine Kinase 43 (10-223) U/L CK-MB (CK-2) 1.8 (0.6-6.3) ng/mL Troponin I 0.03 (<0.04) ng/mL B-Natriuretic Peptide ( - 100) pg/mL Total Protein 6.6 (6.4-8.9) g/dL Albumin 3.8 (3.2-5.2) g/dL Globulin 2.8 (2-4) g/dL Albumin/Globulin Ratio 1.4 (1-3) TSH 0.00 L (0.34-5.60) mcIU/mL Thyroxine (T4) 19.96 H (6.09-12.23) mcg/mL Total T3 Pending Cortisol Pending 10/16/17 10/16/17 Range/Units 16:04 16:04 WBC (3.5-10.8) 10^3/ul RBC (4.0-5.4) 10^6/ul Hgb (14.0-18.0) g/dl Hct (42-52) % MCV (80-94) fL MCH (27-31) pg MCHC (31-36) g/dl RDW (10.5-15) % Plt Count (150-450) 10^3/ul MPV (7.4-10.4) um3 Neut % (Auto) (38-83) % Lymph % (Auto) (25-47) % Hayes % (Auto) (0-7) % Eos % (Auto) (0-6) % Baso % (Auto) (0-2) % Absolute Neuts (auto) (1.5-7.7) 10^3/ul Absolute Lymphs (auto) (1.0-4.8) 10^3/ul Absolute Monos (auto) (0-0.8) 10^3/ul Absolute Eos (auto) (0-0.6) 10^3/ul Absolute Basos (auto) (0-0.2) 10^3/ul Absolute Nucleated RBC 10^3/ul Nucleated RBC % INR (Anticoag Therapy) (0.77-1.02) APTT (26.0-36.3) seconds D-Dimer, Quantitative (Less Than 230) ng/mL Sodium (139-145) mmol/L Potassium (3.5-5.0) mmol/L Chloride (101-111) mmol/L Carbon Dioxide (22-32) mmol/L Anion Gap (2-11) mmol/L BUN (6-24) mg/dL Creatinine (0.67-1.17) mg/dL Est GFR ( Amer) (>60) Est GFR (Non-Af Amer) (>60) BUN/Creatinine Ratio (8-20) Glucose (70-100) mg/dL Lactic Acid 1.0 (0.5-2.0) mmol/L Calcium (8.6-10.3) mg/dL Magnesium (1.9-2.7) mg/dL Total Bilirubin (0.2-1.0) mg/dL AST (13-39) U/L ALT (7-52) U/L Alkaline Phosphatase (34-104) U/L Total Creatine Kinase (10-223) U/L CK-MB (CK-2) (0.6-6.3) ng/mL Troponin I (<0.04) ng/mL B-Natriuretic Peptide 560 H ( - 100) pg/mL Total Protein (6.4-8.9) g/dL Albumin (3.2-5.2) g/dL Globulin (2-4) g/dL Albumin/Globulin Ratio (1-3) TSH (0.34-5.60) mcIU/mL Thyroxine (T4) (6.09-12.23) mcg/mL Total T3 Cortisol Result Diagrams: 10/16/17 16:04 10/17/17 03:56 Lab Statement: Any lab studies that have been ordered have been reviewed, and results considered in the medical decision making process. - Radiology Chest XR Xray Interpretation: Positive (See Comments) - IMPRESSION: Cardiomegaly with mild vascular congestion. Dr. Russo has reviewed this radiology report. Radiology Interpretation Completed By: Radiologist - CT CTA chest/thorax CT Interpretation: Positive (See Comments) - IMPRESSION: No evidence of pulmonary embolus is noted. Moderate degree of right pleural effusion with vascular congestion. Moderate degree of mediastinal and hilar adenopathy of uncertain etiology. Dr. Russo has reviewed this radiology report. CT Interpretation Completed By: Radiologist - EKG 15:53 Cardiac Rate: Tachycardia - at 141 bpm EKG Rhythm: Sinus Tachycardia EKG Interpretation: No ST elevations. Re-Evaluation - Re-Evaluation First Eval Re-Evaluation Time: 17:35 Comment: I reviewed the lab and XR results with the pt. I discussed the plan for admission with the pt. Course/Dx - Course Assessment/Plan: Blood test results without any significant abnormality except for a slight normocytic normochromic anemia, the d-dimer is 377, glucose 107, magnesium 1.7 for which the patient was given magnesium by mouth. BNP is 460, TSH is 0.00 and free T4 is 19.9. He says that the patient is going and the route of thyrotoxicosis. I did T3 and a cortisol level, chest x-ray shows cardiomegaly with some mild vascular congestion. Initially the patient was placed in a potline monitor acid the patient seems to be tachycardic and hypertensive I give the patient labetalol. The heart rate has decreased to 120 to 130 bpm. The patient was given propranolol 20 mg by mouth see the patients blood pressure has decreased to 139/80. I did order a chest CT to rule out PE. I discussed my physical exam and findings with Dr. Delaney from the hospitalist services and she agrees to admit the patient to his services for further workup and management. The patient is hemodynamically stable alert and oriented 3. Dr. Delaney with follow-up the test results from the chest CT. - Diagnoses Differential Diagnosis/HQI/PQRI: Positive: CHF, COPD Exacerbation, Pneumonia, Pulmonary Embolism Provider Diagnoses: Thyroid storm, Tachycardia - Physician Notifications Discussed Care of Patient With: Jenny Delaney Time Discussed With Above Provider: 17:23 Instructed by Provider To: Other - I discussed pt care with Dr. Delaney, hospitalist, who accepted the pt for admission. Discharge - Sign-Out/Discharge Documenting (check all that apply): Discharge/Admit/Transfer - Admit - Discharge Plan Condition: Stable Disposition: ADMITTED TO [facility] - Billing Disposition and Condition Condition: STABLE Disposition: Admitted to [facility] The documentation as recorded by the Jacobo martinez Angela accurately reflects the service I personally performed and the decisions made by me, Enoc Russo MD.
[2017-10-17] MEDS: Enoxaparin(*) 150 MG/ML 1 ML SYRINGE SUBCUT SCH ×2 (12:17→23:02)
[2017-10-17] MEDS: Ondansetron 40 MG VIAL* 2 MG/ML 20 ML VIAL IV PRN (12:24)
[2017-10-17] MEDS ORDERED: Metoclopramide IV* 5 MG/ML 2 ML VIAL IV SLOW PU ONE (13:38)
[2017-10-17] MEDS ORDERED: Propofol* 10 MG/ML 20 ML BTL IV PUSH ONE (13:52)
[2017-10-17] MEDS ORDERED: fentaNYL* 50 MCG/ML 2 ML VIAL (100 MCG VIAL) ONE (13:52)
[2017-10-17] MEDS ORDERED: Midazolam* 1 MG/ML 10 ML VIAL (10 MG) ONE (13:53)
[2017-10-17] MEDS ORDERED: Lidocaine 2% VISCOUS* 15 ML UDC ONE (13:56)
--- NOTE | 2017-10-17 14:10 | PN ---
Progress Note - Progress Note Date of Service: 10/17/17 Note: CRITICAL CARE MEDICINE Date: 10/17/17 Time: 1200 SUBJECTIVE: Patient seen and examined. PHYSICAL EXAM: Vital Signs: Reviewed. HR parked at 130; rr 20s, RA, bp stable Neurologic: awake, communicating. looks a bit worn. HEENT: pupils equal. Sclera anicteric. Trachea midline. palpable thyroid. Cardiovascular: S1 S2 tachy Respiratory: dec on R bases, no wheeze, rales Abdomen: Soft, obese, nt. No r/g/r. Extremities: coolish. no pitting edema Access: piv LABS: Reviewed. IMAGING: Reviewed. MEDICATIONS: Reviewed. ASSESSMENT/PLAN: 31 M presenting late in his course from graves disease / thyroid crisis that may have started some while ago and now presenting with complications of tachycardia induced cardiomyopathy. Most of his dynamics could be explained from un-treated graves disease and tachy induced cardiomyopathy but also concerned about mediastinal adenopathy and more unilateral pleural effusion. Hopefully these are just the result of congestion, as well as bili, but needs more workup. As explained to him with mom present at bedside. Plan for him to undergo tx for graves disease presently as we are doing, with inc propranolol already this am. Agree with cards, needs QUIN to r/o clot and cardioversion. 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 Needs to allow heart time to heal. Also explained his resp reserve and pleural effusion. Explained we can perform thoracentesis after quin/cardioversion since he will already have moderate sedation from me and we can have a dx and tx thora. He understands he is now on a blood thinning medication with inc bleeding risk, and consents to procedure. I advised if it was difficult or concerns for bleeding then we would early abort it, but we desire it for dx and tx. May eventually need ebus and bx but that can wait. Explained to him risks of quin, and medications we would be using for quin and affects/side affects and potential need for rescue breathing devises. He expressed understanding with mom and dad present. Supportive and preventative care as ordered. Going to need time to heal but need to get ahead of this Disposition: ICU Code Status: Full Critical Care Time: 45min Brandi Bailey,
[2017-10-17] MEDS ORDERED: LORazepam INJ* 2 MG/ML 1 ML VIAL ONE (14:13)
[2017-10-17] MEDS ORDERED: Perflutren Lipid Microsphere* 3 ML VIAL ONE (14:43)
[2017-10-17] MEDS ORDERED: Lidocaine 2% PF * 5 ML VIAL ONE (15:05)
--- NOTE | 2017-10-17 16:02 | CONS ---
PULMONARY CONSULTATION REPORT: DATE OF CONSULT: 10/17/17 CONSULTATION REQUESTED BY: Joy Sylvester NP. REASON FOR CONSULT: Evaluation of pleural effusion and shortness of breath. HISTORY OF PRESENT ILLNESS: The patient is a 31-year-old obese male with no significant past medical history, has not seen a physician in the past, who presents for evaluation of worsening shortness of breath over the past few days. The patient reports having shortness of breath noticeable over the past year, significantly worsened over the past week, could barely walk 1 flight of stairs. The patient also reports midsternal chest discomfort that has been present for a week. He has been trying Advil without much relief. The patient also reports shortness of breath with deep inspiration. The patient reports history of asthma, has not had issues with asthma or needed treatment for a very long time. The patient is unsure if his shortness of breath is worse secondary to his asthma acting out. He has had no insurance and did not see a physician for evaluation of his symptoms. The patient also has been having palpitations. The patient also reports having tremors for the past year. The patient also reports abdominal pain bloating and episodes of diarrhea. The patient also reports having lower extremity edema that he thought his legs were always large. The patient reports shortness of breath is worse when lying down. Denies fevers, chills, cough, recent travel. He has been on disability recently. The patient also reports nausea and vomiting for the past 1 to 2 months. He did not have any abdominal pain until last night when he started having abdominal pain in the mid and right upper quadrant, which improved with morphine. The patient reports loss of energy. The patient also reports feeling hot and poor heat tolerance. The patient denies urinary symptoms. The patient also reports weight gain over the past few years, but has lost 25 pounds in the past 10 months unintentionally. Further evaluation in the emergency room, the patient was noted to be tachycardic with heart rate in the 130s. He was also tachypneic. Further evaluation included chest x-ray which showed cardiomegaly and pulmonary vascular congestion. He was also noted to have elevated T bili at 2.3 with AST of 49, ALT of 48, TSH negligible, T4 of 19.96, BNP 560, d-dimer of 377. He was also mildly anemic with hemoglobin of 13.8, hematocrit of 41. I have personally reviewed chest x-ray and CT of the chest. The patient did not have evidence of filling defects in the pulmonary arteries, was found to have moderate sized like pleural effusion with basal atelectasis and vascular congestion. The patient also with prominent mediastinal and hilar nodes. The patient was admitted to ICU for evaluation of thyroid storm. He was initiated on propranolol, propylthiouracil, Benadryl, and Solu-Medrol. The patient was also given morphine for relief of abdominal discomfort. Thyroid ultrasound did show evidence of heterogeneously enlarged thyroid gland. The patient was also noted to have multiple gallstones in gallbladder. The patient seen and examined at bedside this morning. The patient reports return of abdominal pain, which feels sharp. The patient reports that shortness of breath comes back if he moves a little bit. PAST MEDICAL HISTORY: Asthma in childhood. PAST SURGICAL HISTORY: Fisher tooth extraction. MEDICATIONS AT HOME: Multivitamin 1 tablet daily. ALLERGIES: No known drug allergies. FAMILY HISTORY: Thyroid disease, coronary artery disease, diabetes. Paternal grandmother with brain tumor. SOCIAL HISTORY: Smokes intermittently for 16 years of 2 packs per day, drinks 2 beers daily, did not drink in the past week. Denies recreational drug abuse. He lives at home with his mother. REVIEW OF SYSTEMS: All 14 systems were reviewed and as per HPI. PHYSICAL EXAM: The patient in bed, in no apparent distress, lying flat in bed. Vital Signs: Temperature 96.5, heart rate 130 beats per minute, respiratory rate 21 per minute, blood pressure 122/83, O2 sat 94% on room air. HEENT: Pupils are equal and reactive to light, mucous membranes moist, Mallampati class 4 airway. The patient also with evidence of exophthalmos, dilated pupils. Neck: Supple. No JVD. Lungs: Decreased air entry at right base. No crackles or wheezes. Cardiovascular: S1 and S2 present, regular. Abdomen: Tenderness in right upper quadrant. Extremities: Normal range of motion. No evidence of pitting edema in lower extremities. Neuro: No focal deficits. Alert, awake, and oriented x3. Skin: No rash or bruises. DIAGNOSTIC STUDIES/LAB DATA: CT of the chest as described above in HPI. Thyroid ultrasound as described above in HPI. IMPRESSION AND RECOMMENDATIONS: 31-year-old obese male with history of asthma, smoker, admitted with worsening shortness of breath and is found to be in thyroid storm. 1. Thyrotoxicosis with thyroid storm. 2. 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 3. Mediastinal adenopathy, likely also secondary to vascular congestion. 4. Elevated LFTs and gallstones likely the etiology. 5. No evidence acute cholecystitis. 6. Elevated BNP secondary to high output cardiomyopathy. 7. Abdominal pain secondary to gallstones versus peptic ulcer disease. We will start PPI given association of acid reflux disease with thyrotoxicosis. The patient with high output cardiomyopathy resulting in pleural effusion. Might not need thoracentesis at this time unless in significant distress. Would recommend Lasix once thyrotoxicosis and high output heart failure improves. Pleural effusion would improve. Adenopathy in the mediastinum also likely secondary to vascular congestion. Will need a followup CT scan to ensure resolution of adenopathy once thyrotoxicosis condition improves. Endocrinology consultation pending. Thank you for allowing me to participate in the care of your patient. Will follow up with you. [id number]/[facility] #: [id number] KARMA
--- NOTE | 2017-10-17 16:11 | PN ---
Progress Note - Progress Note Date of Service: 10/17/17 Note: CRITICAL CARE MEDICINE Date: 10/17/17 Time: 1400 Moderate sedation performed for Dr. Elizalde and successful quin and cardioversion. pt did well. We then set up for Right thoracentesis after but could not achieve good window on ultrasound with patient body habitus and positioning and therefore procedure aborted for the day. Will allow meds to dissipate and re-eval for procedure tomorrow with less anxiety hopefully now with improved hr and time with hypert4 tx and pt with ability to sit and position appropriately for procedure. All d/w pts parents who expressed understanding. Disposition: ICU Code Status: Full Critical Care Time: 25min FStan Bailey DO
--- NOTE | 2017-10-17 16:40 | PROCNOTE ---
Cardiology Procedure Note 10/17/2017 Limited MARCO with cardioversion Risks, benefits and alternatives discussed and patient wished to proceed Patient with severe biventricular cardiomyopathy suspected in part due to rapid atrial flutter unable to be rate controlled Received therapeutic lovenox prior to procedure Limited MARCO no LA/RACHEL thrombus Sedation provided by Dr. Bailey Patient successfully cardioverted from atrial flutter 2:1 rate ~ 130 bpm to normal sinus rhythm with external electrical sync 120 J x 1 Continue 1 mg/kg sq bid therapeutic lovenox Decrease propanolol to 60 mg PO QID for now. This is not ideal for cardiomyopathy (either coreg or toprol preferred) but if this is best beta- james for thyroid disease then I would continue.
--- NOTE | 2017-10-17 16:47 | RAD ---
Indication: Verify PICC line placement. Single frontal view of the chest performed at 1615 hours was reviewed. Comparison is made with previous exam dated October 16, 2017. Cardiomegaly is noted. There is likely bilateral pleural effusion with interstitial edema and bibasilar atelectasis. PICC line is in the superior vena cava. IMPRESSION: CARDIOMEGALY WITH BILATERAL PLEURAL EFFUSIONS AND BIBASILAR ATELECTASIS.
[2017-10-17] MEDS: Omeprazole CAP* 20 MG PO SCH (20:28)
[2017-10-17] MEDS: Zolpidem TAB* 10 MG PO PRN (23:02)
[2017-10-18] MEDS: Hydrocortisone INJ* 100 MG VIAL IV SCH (05:12)
[2017-10-18] MEDS: Propylthiouracil TAB* 50 MG PO SCH ×4 (05:12→20:37)
[2017-10-18 05:42] LABS: ABS Basophils 0 10^3/ul (0-0.2); ABS Eosinophils 0 10^3/ul (0-0.6); ABS Lymphocytes 1.3 10^3/ul (1.0-4.8); ABS Monocytes 0.6 10^3/ul (0-0.8); ABS Neutrophils 5.7 10^3/ul (1.5-7.7); ABS Nucleated RBC 0 10^3/ul; Eosinophil % 0 % (0-6); Hematocrit 41 % (42-52); Hemoglobin 13.3 g/dl (14.0-18.0); Mean Corpuscular HGB Conc 32 g/dl (31-36); Mean Corpuscular Hemoglobin 26 pg (27-31); Mean Corpuscular Volume 81 fL (80-94); Mean Platelet Volume 7.9 um3 (7.4-10.4); Nucleated Red Blood Cells % 0.1; Platelet Count 312 10^3/ul (150-450); Red Blood Count 5.11 10^6/ul (4.0-5.4); Red Cell Distribution Width 15 % (10.5-15); White Blood Count 7.6 10^3/ul (3.5-10.8)
[2017-10-18 05:55] LABS: INR 1.4 (0.77-1.02)
[2017-10-18 06:09] LABS: EGFR Non-African American 128.6 (>60)
--- NOTE | 2017-10-18 08:25 | PN ---
Subjective - Subjective Reason for Note: Consultation Note History: I have reviewed the consultation notes from Tonio Osborne and Jing. I also reviewed the procedure note (transthoracic echocardiogram, MARCO and cardioversion). Abdominal pain: This has improved - though worsens when he is sitting up and talking to people. Not meal related Dyspnea: Very little - but he has been in bed Nausea: Improving. He has remained in sinus rhythm overnight. 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 Thickening of wall of gallbladder (Acute) K82.8 Thyroid crisis or storm (Acute) E05.91 Current Medications: Current Medications Diphenhydramine HCl (Benadryl Po*) 50 mg PO BEDTIME PRN PRN Reason: INSOMNIA Last Admin: 10/17/17 00:15 Dose: 50 mg Enoxaparin Sodium (Lovenox(*)) 120 mg SUBCUT Q12H [facility] Last Admin: 10/17/17 23:02 Dose: 120 mg Heparin Sodium (Porcine) (Heparin Flush Picc/Ml/Cvc(*)) 1 - 3 ml FLUSH 0600, 1800 AJAY PRN Reason: Protocol Last Admin: 10/18/17 05:13 Dose: 3 ml Hydrocortisone Sodium Succinate (Solu-Cortef*) 100 mg IV Q8H AJAY Last Admin: 10/18/17 05:12 Dose: 100 mg Multivitamins/Minerals (Theragran/Minerals Tab*) 1 tab PO DAILY [facility] Last Admin: 10/17/17 09:07 Dose: 1 tab Omeprazole (Prilosec Cap*) 40 mg PO BID AC [facility] Last Admin: 10/17/17 20:28 Dose: Not Given Ondansetron HCl (Zofran 40 Mg Vial*) 4 mg IV Q6H PRN PRN Reason: NAUSEA Last Admin: 10/17/17 12:24 Dose: 4 mg Propranolol HCl (Inderal Tab*) 60 mg PO QID [facility] Last Admin: 10/17/17 23:02 Dose: 60 mg Propylthiouracil (Ptu Tab*) 200 mg PO Q4H [facility] Last Admin: 10/18/17 05:12 Dose: 200 mg Zolpidem Tartrate (Ambien Tab*) 10 mg PO BEDTIME PRN PRN Reason: INSOMNIA Last Admin: 10/17/17 23:02 Dose: 10 mg Home Medications: Home Medications Medication Instructions Recorded Confirmed Type Multivitamins/Minerals TAB* 1 tab PO DAILY 10/16/17 10/16/17 History [Theragran/minerals TAB*] Allergies: Allergies Allergy/AdvReac Type Severity Reaction Status Date / Time No Known Allergies Allergy Verified 10/16/17 16:05 - Social History Living Situation: Currently living at his mother's house Occupation: [employer] - currently out of work. Objective - Vital Signs Vital Signs: Vital Signs 10/17/17 10/17/17 10/17/17 09:00 10:00 11:00 Temperature Pulse Rate 141 Respiratory 27 22 27 Rate Blood Pressure 122/100 129/89 123/90 (mmHg) O2 Sat by Pulse 100 Oximetry 10/17/17 10/17/17 10/17/17 11:39 12:00 13:00 Temperature 98.0 F Pulse Rate 128 129 Respiratory 21 23 Rate Blood Pressure 116/79 127/91 (mmHg) O2 Sat by Pulse 99 100 Oximetry 10/17/17 10/17/17 10/17/17 14:00 14:22 15:00 Temperature Pulse Rate Respiratory 22 22 24 Rate Blood Pressure (mmHg) O2 Sat by Pulse Oximetry 10/17/17 10/17/17 10/17/17 15:38 15:50 15:55 Temperature 97.9 F Pulse Rate 87 89 Respiratory 24 Rate Blood Pressure 91/48 95/46 (mmHg) O2 Sat by Pulse 98 97 Oximetry 10/17/17 10/17/17 10/17/17 16:00 16:05 16:10 Temperature Pulse Rate 89 88 88 Respiratory 22 Rate Blood Pressure 90/46 97/47 93/46 (mmHg) O2 Sat by Pulse 97 97 97 Oximetry 10/17/17 10/17/1710/17/18 16:15 16:20 16:25 Temperature Pulse Rate 91 89 88 Respiratory Rate Blood Pressure 90/58 101/61 92/55 (mmHg) O2 Sat by Pulse 96 97 97 Oximetry 10/17/17 10/17/17 10/17/17 16:30 16:35 16:40 Temperature Pulse Rate 88 89 89 Respiratory Rate Blood Pressure 91/49 91/51 92/48 (mmHg) O2 Sat by Pulse 96 96 96 Oximetry 10/17/17 10/17/17 10/17/17 16:45 16:50 16:55 Temperature Pulse Rate 89 88 88 Respiratory Rate Blood Pressure 90/48 93/51 90/50 (mmHg) O2 Sat by Pulse 96 96 95 Oximetry 10/17/17 10/17/17 10/17/17 17:00 17:05 17:10 Temperature Pulse Rate 87 89 89 Respiratory 22 Rate Blood Pressure 91/55 87/52 91/49 (mmHg) O2 Sat by Pulse 96 95 95 Oximetry 10/17/17 10/17/17 10/17/17 17:15 17:20 17:25 Temperature Pulse Rate 88 89 88 Respiratory Rate Blood Pressure 90/51 90/51 96/58 (mmHg) O2 Sat by Pulse 95 95 95 Oximetry 10/17/17 10/17/17 10/17/17 17:30 17:35 17:40 Temperature Pulse Rate 89 87 78 Respiratory Rate Blood Pressure 93/55 93/57 94/67 (mmHg) O2 Sat by Pulse 95 95 97 Oximetry 10/17/17 10/17/17 10/17/17 17:46 17:50 17:55 Temperature Pulse Rate 95 89 93 Respiratory 23 15 23 Rate Blood Pressure 102/62 121/81 122/74 (mmHg) O2 Sat by Pulse 99 97 99 Oximetry 10/17/17 10/17/17 10/17/17 18:00 18:06 18:10 Temperature Pulse Rate 92 77 90 Respiratory 26 25 15 Rate Blood Pressure 119/89 111/70 123/75 (mmHg) O2 Sat by Pulse 100 99 94 Oximetry 10/17/17 10/17/17 10/17/17 18:15 18:20 18:25 Temperature Pulse Rate 60 85 93 Respiratory 20 21 22 Rate Blood Pressure 117/85 119/73 113/79 (mmHg) O2 Sat by Pulse 100 100 100 Oximetry 10/17/17 10/17/17 10/17/17 18:30 18:35 18:41 Temperature Pulse Rate 90 94 96 Respiratory 23 20 15 Rate Blood Pressure 118/75 126/69 106/70 (mmHg) O2 Sat by Pulse 100 100 97 Oximetry 10/17/17 10/17/17 10/17/17 18:50 18:55 19:00 Temperature Pulse Rate 97 98 93 Respiratory 22 19 17 Rate Blood Pressure 108/79 124/78 123/79 (mmHg) O2 Sat by Pulse 98 97 96 Oximetry 10/17/17 10/17/17 10/17/17 19:05 19:10 19:15 Temperature Pulse Rate 96 93 93 Respiratory 30 23 20 Rate Blood Pressure 113/73 120/77 108/66 (mmHg) O2 Sat by Pulse 97 98 99 Oximetry 10/17/17 10/17/17 10/17/17 19:20 19:26 19:31 Temperature Pulse Rate 90 80 Respiratory 23 23 19 Rate Blood Pressure 113/77 114/70 116/69 (mmHg) O2 Sat by Pulse 98 98 Oximetry 10/17/17 10/17/17 10/17/17 19:35 19:40 19:46 Temperature Pulse Rate 80 84 66 Respiratory 20 20 18 Rate Blood Pressure 113/74 110/67 99/57 (mmHg) O2 Sat by Pulse 100 99 99 Oximetry 10/17/17 10/17/17 10/17/17 19:50 20:00 20:01 Temperature 98.0 F Pulse Rate 89 82 82 Respiratory 18 20 20 Rate Blood Pressure 116/74 96/62 (mmHg) O2 Sat by Pulse 98 98 98 Oximetry 10/17/17 10/17/17 10/17/17 21:00 21:01 21:30 Temperature Pulse Rate 89 84 80 Respiratory 24 23 24 Rate Blood Pressure 122/74 119/73 (mmHg) O2 Sat by Pulse 97 97 99 Oximetry 10/17/17 10/17/17 10/17/17 22:00 22:30 23:00 Temperature Pulse Rate 87 74 75 Respiratory 21 17 20 Rate Blood Pressure 104/61 114/74 108/83 (mmHg) O2 Sat by Pulse 99 100 94 Oximetry 10/17/17 10/18/17 10/18/17 23:30 00:00 00:07 Temperature 98 F Pulse Rate 83 84 70 Respiratory 19 19 21 Rate Blood Pressure 110/69 107/74 (mmHg) O2 Sat by Pulse 93 97 96 Oximetry 10/18/17 10/18/17 10/18/17 00:31 00:57 01:00 Temperature Pulse Rate 60 68 Respiratory 16 18 24 Rate Blood Pressure 109/87 115/83 (mmHg) O2 Sat by Pulse 98 99 Oximetry 10/18/17 10/18/17 10/18/17 02:00 03:00 04:00 Temperature 98.5 F Pulse Rate 84 84 80 Respiratory 23 18 20 Rate Blood Pressure 103/60 108/70 103/67 (mmHg) O2 Sat by Pulse 98 94 95 Oximetry 10/18/17 10/18/17 10/18/17 05:00 06:00 07:00 Temperature Pulse Rate 96 69 77 Respiratory 18 20 20 Rate Blood Pressure 125/83 110/77 112/72 (mmHg) O2 Sat by Pulse 79 98 97 Oximetry 10/18/17 07:30 Temperature 97.5 F Pulse Rate Respiratory Rate Blood Pressure (mmHg) O2 Sat by Pulse Oximetry - Intake and Output Intake and Output: Intake & Output 10/15/17 10/16/17 10/17/17 10/18/17 11:59 11:59 11:59 11:59 Intake Total 811 1635 Output Total 1650 1490 Balance -839 145 Weight 272 lb 4.334 oz 270 lb 4.587 oz Intake: IV Fluids 50 345 NS (0.9%) 50 345 Medicated IV 61 GEN - Magnesium 61 Oral 700 1290 Output: Urine 1650 1490 Barros 0 Other: Estimated Void Medium Date of Last Bowel 10/17/17 Movement # Bowel Movements 1 Estimated Stool Amount Medium # Voids 1 ADLs: Meal Record Start: 10/16/17 19: 26 Freq: 09,,18 Status: Active Protocol: Created 10/16/17 19:26 System (Rec: 10/16/17 19:26 System ICU-M22) Document 10/17/17 09:00 [id number] (Rec: 10/17/17 13:06 [id number] ICU-C16) Document 10/17/17 13:00 [id number] (Rec: 10/17/17 13:16 [id number] ICU-C16) Document 10/17/17 18:00 [id number] (Rec: 10/17/17 18:28 CCR1390 ICU-C18) Intake and Output Start: 10/16/17 19: 26 Freq: Q1HR Status: Active Protocol: Created 10/16/17 19:26 System (Rec: 10/16/17 19:26 System ICU-M22) Document 10/16/17 20:00 [id number] (Rec: 10/16/17 21:45 [id number] ICU-C16) Document 10/16/17 21:00 JGI3613 (Rec: 10/16/17 21:46 COH4610 ICU-C16) Document 10/16/17 22:00 ZFT5376 (Rec: 10/16/17 22:03 [id number] ICU-C16) Document 10/16/17 23:00 SIF5232 (Rec: 10/16/17 23:04 SXP8578 ICU-C16) Document 10/16/17 23:45 QRT6959 (Rec: 10/16/17 23:50 SFW4484 ICU-C16) Document 10/17/17 01:00 JTB1713 (Rec: 10/17/17 01:53 ZUO7924 ICU-C16) Document 10/17/17 02:00 WLB0404 (Rec: 10/17/17 02:45 UIQ4438 ICU-C16) Document 10/17/17 03:00 EXI1091 (Rec: 10/17/17 03:53 BBW2436 ICU-C16) Document 10/17/17 03:54 OXG0698 (Rec: 10/17/17 04:05 VKT9394 ICU-C16) Document 10/17/17 05:00 XYL5005 (Rec: 10/17/17 05:01 HYI9122 ICU-C16) Document 10/17/17 06:00 SUO8247 (Rec: 10/17/17 06:16 APP6398 ICU-C16) Document 10/17/17 07:00 REH1387 (Rec: 10/17/17 08:58 OGB2557 ICU-C16) Document 10/17/17 08:00 UQP6088 (Rec: 10/17/17 13:06 VHK8525 ICU-C16) Document 10/17/17 09:00 YYL7389 (Rec: 10/17/17 13:07 DLZ2563 ICU-C16) Document 10/17/17 10:00 QZE1649 (Rec: 10/17/17 13:08 YXF1163 ICU-C16) Document 10/17/17 11:00 ALW2884 (Rec: 10/17/17 13:09 MCG9024 ICU-C16) Document 10/17/17 12:00 YYX8921 (Rec: 10/17/17 13:15 BQK1624 ICU-C16) Document 10/17/17 13:00 UBK9494 (Rec: 10/17/17 13:16 MQC7572 ICU-C16) Document 10/17/17 14:00 EPZ9083 (Rec: 10/17/17 20:15 RBP3311 ICU-C10) Document 10/17/17 15:00 AOP4726 (Rec: 10/17/17 20:15 ZIX3489 ICU-C10) Document 10/17/17 16:00 AHW9330 (Rec: 10/17/17 20:15 UZE9114 ICU-C10) Document 10/17/17 17:00 GJU0336 (Rec: 10/17/17 20:15 YNB6597 ICU-C10) Document 10/17/17 18:00 MWO8047 (Rec: 10/17/17 20:15 YRS8367 ICU-C10) Document 10/17/17 19:00 QHV8982 (Rec: 10/17/17 21:40 YXT7650 ICU-C14) Document 10/17/17 20:00 UXN6416 (Rec: 10/17/17 21:41 BUG4455 ICU-C14) Document 10/17/17 21:00 VCJ6551 (Rec: 10/17/17 21:42 RJT5151 ICU-C14) Document 10/17/17 22:00 VMG0099 (Rec: 10/18/17 00:08 AVU6679 ICU-C15) Document 10/17/17 23:00 DIR5792 (Rec: 10/18/17 00:09 HQQ9171 ICU-C15) Document 10/18/17 00:00 TNT4149 (Rec: 10/18/17 00:09 KKT9848 ICU-C15) Document 10/18/17 01:00 WYG6150 (Rec: 10/18/17 01:50 OLE0216 ICU-C15) Document 10/18/17 02:00 MTU3732 (Rec: 10/18/17 02:15 QXA1431 ICU-C15) Document 10/18/17 03:00 RLK2292 (Rec: 10/18/17 03:31 JFQ2757 ICU-C15) Document 10/18/17 04:00 NAZ9093 (Rec: 10/18/17 06:05 ARG8567 ICU-C15) Document 10/18/17 05:00 YSS0241 (Rec: 10/18/17 06:05 WZI3858 ICU-C15) Document 10/18/17 06:00 IMN4595 (Rec: 10/18/17 06:05 XVB0801 ICU-C15) Document 10/18/17 07:00 DRQ6370 (Rec: 10/18/17 07:08 UDR8829 ICU-C15) - Physical Exam General: No Cyanosis, No Anemia, No Jaundice, No Clubbing Skin: Abnormal: Rash - right lower stephen - pretibial myxedema Endocrine: Yes Central Obesity, No Acromegaly, No Vitiligo, No Flushing, No Acanthosis nigricans, No Violaceious striae, No Mel Syndrome, No Buccal pigmenatation, No Otot Crease Pigmentation Lungs and Chest: Yes: Chest Expansion Full, Chest Expansion Symetrica, Percussion Note Resonant, Vessicular Breath Sounds. No: Crackles, Wheezes, Respiratory Distress, Use of Accessory Muscles Heart Rate and Rhythm: Regular JVP: Elevated Additional Cardiovascular: Yes: Normal Heart Sounds, Pedal Edema. No: Heart Murmur Abdominal Exam: Yes: Soft, Bowel Sounds Present. No: Distention, Abdominal Mass , Hepatomegaly, Abdominal Tenderness - Extremities Cranial Nerves II-XII Intact: Yes Limbs: Normal Power, Normal Tone Results - Results Lab Results: Laboratory Results - last 24 hr 10/17/17 10/17/17 10/17/17 03:56 09:45 09:45 WBC RBC Hgb Hct MCV MCH MCHC RDW Plt Count MPV Neut % (Auto) Lymph % (Auto) Eddy % (Auto) Eos % (Auto) Baso % (Auto) Absolute Neuts (auto) Absolute Lymphs (auto) Absolute Monos (auto) Absolute Eos (auto) Absolute Basos (auto) Absolute Nucleated RBC Nucleated RBC % INR (Anticoag Therapy) Sodium 138 L Potassium 4.9 Chloride 106 Carbon Dioxide 21 L Anion Gap 11 BUN 15 Creatinine 0.56 L Est GFR ( Amer) 217.4 Est GFR (Non-Af Amer) 169.1 BUN/Creatinine Ratio 26.8 H Glucose 112 H Calcium 9.7 Phosphorus Magnesium 2.2 Total Bilirubin 2.80 H Direct Bilirubin Indirect Bilirubin AST 53 H ALT 52 Alkaline Phosphatase 161 H Ammonia Lactate Dehydrogenase Cancelled 170 C-Reactive Protein B-Natriuretic Peptide Total Protein 6.8 Albumin 3.8 Globulin 3.0 Albumin/Globulin Ratio 1.3 Vitamin B12 > 1450 H Thyroid Peroxidase Ab 154.13 H Hep Bs Antigen Nonreactive Hepatitis C Antibody Nonreactive 10/18/17 10/18/17 10/18/17 05:25 05:25 05:25 WBC 7.6 RBC 5.11 Hgb 13.3 L Hct 41 L MCV 81 MCH 26 L MCHC 32 RDW 15 Plt Count 312 MPV 7.9 Neut % (Auto) 74.6 Lymph % (Auto) 17.0 L Eddy % (Auto) 8.2 H Eos % (Auto) 0 Baso % (Auto) 0.2 Absolute Neuts (auto) 5.7 Absolute Lymphs (auto) 1.3 Absolute Monos (auto) 0.6 Absolute Eos (auto) 0 Absolute Basos (auto) 0 Absolute Nucleated RBC 0 Nucleated RBC % 0.1 INR (Anticoag Therapy) 1.40 H Sodium 137 L Potassium 4.3 Chloride 104 Carbon Dioxide 25 Anion Gap 8 BUN 25 H Creatinine 0.71 Est GFR ( Amer) 165.3 Est GFR (Non-Af Amer) 128.6 BUN/Creatinine Ratio 35.2 H Glucose 152 H Calcium 9.0 Phosphorus 4.8 Magnesium 2.2 Total Bilirubin 1.80 H Direct Bilirubin 1.00 H Indirect Bilirubin 0.8 AST 39 ALT 41 Alkaline Phosphatase 120 H Ammonia Lactate Dehydrogenase C-Reactive Protein 15.64 H B-Natriuretic Peptide Total Protein 6.2 L Albumin 3.5 Globulin 2.7 Albumin/Globulin Ratio 1.3 Vitamin B12 Thyroid Peroxidase Ab Hep Bs Antigen Hepatitis C Antibody 10/18/17 10/18/17 05:25 05:25 WBC RBC Hgb Hct MCV MCH MCHC RDW Plt Count MPV Neut % (Auto) Lymph % (Auto) Eddy % (Auto) Eos % (Auto) Baso % (Auto) Absolute Neuts (auto) Absolute Lymphs (auto) Absolute Monos (auto) Absolute Eos (auto) Absolute Basos (auto) Absolute Nucleated RBC Nucleated RBC % INR (Anticoag Therapy) Sodium Potassium Chloride Carbon Dioxide Anion Gap BUN Creatinine Est GFR ( Amer) Est GFR (Non-Af Amer) BUN/Creatinine Ratio Glucose Calcium Phosphorus Magnesium Total Bilirubin Direct Bilirubin Indirect Bilirubin AST ALT Alkaline Phosphatase Ammonia 53 Lactate Dehydrogenase C-Reactive Protein B-Natriuretic Peptide 335 H Total Protein Albumin Globulin Albumin/Globulin Ratio Vitamin B12 Thyroid Peroxidase Ab Hep Bs Antigen Hepatitis C Antibody Radiology Results: Patient Name: JORI MOY Medical Record#: [id number] Ordering Physician: Donald Alejandra MD Acct.#: [id number] : 1985 Age: 31 Sex: M Location: [facility] Exam Date: 10/17/17810 ADM Status: ADM IN Order Information: LIVER Accession Number: [id number] CPT: 28808 INDICATION: Hyperbilirubinemia. COMPARISON: Comparison is made with a prior CT of the abdomen and pelvis from January 22, [address] angiogram of the chest from October 16, 2017. TECHNIQUE: Multiple real-time images of the right upper quadrant were obtained. FINDINGS: There are areas of increased echogenicity present within the gallbladder with shadowing consistent with multiple gallstones. The gallbladder wall is thickened measuring up to 7 mm in thickness. No pericholecystic fluid is present. The patient was tender over the gallbladder while scanning. No intra or extrahepatic ductal distention is present. The common bile duct measured 0.3 cm in diameter. The liver is enlarged without significant focal abnormality. The pancreas is obscured by overlying bowel gas. The right kidney is normal in size without evidence for hydronephrosis. There is a right pleural effusion present. IMPRESSION: 1. CHOLELITHIASIS, IN ADDITION THERE IS THICKENING OF THE GALLBLADDER WALL SUGGESTING THE POSSIBILITY OF ACUTE CHOLECYSTITIS. RECOMMEND CLINICAL CORRELATION. 2. HEPATOMEGALY. 3. RIGHT PLEURAL EFFUSION. <Electronically signed by Ketan Saenz MD in [place]> 10/17/17929 Dictated By: Ketan Saenz MD Dictated Date/Time: 10/17/17929 Transcribed Date/Time: 10/17/17920 Copy to: CC:Donald Alejandra MD; Jori Elizalde DO; Donnell Bailey DO; Dante Prieto MD; Yelena Ch MD; No Primary Care Phys,NOPCP Imaging - [facility] Imaging [facility] Imaging - [facility] [address] [address] ph ([phone]) ph ([phone]) ph ([phone]) 1 of 1 Patient Name: JORI MOY Medical Record#: [id number] Ordering Physician: Donnell Bailey DO Acct.#: [id number] : 1985 Age: 31 Sex: M Location: [facility] Exam Date: 10/17/17 132 ADM Status: ADM IN Order Information: CHEST AP PORTABLE Accession Number: [id number] CPT: 85543 Indication: Verify PICC line placement. Single frontal view of the chest performed at 1615 hours was reviewed. Comparison is made with previous exam dated October 16, 2017. Cardiomegaly is noted. There is likely bilateral pleural effusion with interstitial edema and bibasilar atelectasis. PICC line is in the superior vena cava. IMPRESSION: CARDIOMEGALY WITH BILATERAL PLEURAL EFFUSIONS AND BIBASILAR ATELECTASIS. <Electronically signed by Carina Cortes MD in [place]> 10/17/171643 Dictated By: Carina Cortes MD Dictated Date/Time: 10/17/17 164 Transcribed Date/Time: 10/17/17 164 Copy to: CC:Donald Alejandra MD; Jori Elizalde DO; Donnell Bailey DO; Dante Prieto MD; Yelena Ch MD; No Primary Care Phys,NOPCP Imaging - [facility] Imaging - [facility] [address] [address] [place] [address] [place] [address] ph ([phone]) ph ([phone]) ([phone]) 1 of 1 EKG Report: EKG 10/17/2017 15:01 post cardioversion Rate 84 ME 173 QTc 458 QRSD 118 QRS axis -25. Partial RBBB. Mild repolarization changes Assessment - Problem List Assessment: Patient Problems Cardiac LV ejection fraction <20% (Acute) Cholelithiasis (Acute) Chronic lymphocytic thyroiditis (Acute) Elevated alkaline phosphatase level (Acute) Epigastric pain (Acute) Graves disease (Acute) High output congestive heart failure (Acute) Hilar lymphadenopathy (Acute) Insomnia (Acute) Mediastinal lymphadenopathy (Acute) Nausea and vomiting (Acute) Obstructive hyperbilirubinemia (Acute) Pleural cavity effusion (Acute) Pretibial myxedema (Acute) Thickening of wall of gallbladder (Acute) Thyroid crisis or storm (Acute) Plan: Thyroid crisis or storm (Acute)Chronic lymphocytic thyroiditis (Acute) Graves disease (Acute) He is currently being managed with PTU, hydrocortisone and propranolol. His hyperthyroxinemia is not severe. I will recheck his levels tomorrow. RE: propranolol vs carvedilol vs metoprolol - the effect on T4 to T3 conversion is a slow and minor part of the mechanism of action of beta blockers in hyperthyroidism. It relates to lipid solubility - access to the mono- deiodinase enzymes. I recommend the cardiologists choose the beta-james according to the best utility with a low cardiac ejection fraction and ignore the T4 to T3 theoretical benefit of these drugs. I will cut back the PTU dose as it is likely toxic at present. I will maintain the steroid dose another 24 hours. I note he has autoimmune thyroid disease and chronic lympyhocytic thyroiditis (elevated thyroid peroxidase abs) - we await the TSI results. The chronic lymphocytic thyroiditis won't affect the natural history in the short term. Cardiac LV ejection fraction <20% (Acute) High output congestive heart failure ( Acute) I note that his EF is low and this is NOT a high output cardiac failure as often seen with Graves' disease. 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 Both rate induced and thyrotoxicosis induced cardiomyopathy can recover - time will tell. In the meantime, as noted above, I would treat the cardiomyopathy and heart failure per protocol and ignore beta james selection for the Graves' disease (see above) Obstructive hyperbilirubinemia (Acute)Cholelithiasis (Acute) Elevated alkaline phosphatase level (Acute) Thickening of wall of gallbladder (Acute) Nausea and vomiting (Acute) Epigastric pain (Acute) The hyperbilirubinemia is improving - as is the elevated ALP. The differential diagnosis: Hyperthyroidism, passive congestion from heart failure and acute cholecystitis. Or all orf the above. Hilar lymphadenopathy (Acute) Mediastinal lymphadenopathy (Acute) Pleural cavity effusion (Acute) This may relate to heart failure, or there may be another factor. This is something we will investigate along the way Insomnia (Acute) Helped with zolpidem Pretibial myxedema (Acute) no problem here I spoke at length with the patient and his father - explaining again the pathophysiolgy of Graves' disease, its management. I also discussed the heart failure.
[2017-10-18] MEDS: Omeprazole CAP* 20 MG PO SCH ×2 (08:28→17:56)
[2017-10-18] MEDS: Propranolol TAB* 60 MG PO SCH (08:29)
[2017-10-18] MEDS: Enoxaparin(*) 150 MG/ML 1 ML SYRINGE SUBCUT SCH ×3 (08:29→20:38)
[2017-10-18] MEDS: Multivitamins/Minerals TAB PO SCH (08:30)
--- NOTE | 2017-10-18 08:31 | TEE ---
Patient: JORI MOY [facility] Rec#: [id number] : 1985 Date: 10/17/2017 Age: 31y Height: 170 cm / 66.9 in Weight: 124 kg / 273.3 lbs Sex: M BSA: 2.31 Room#: ICU 2 Admit Date#: 10/16/2017 Type: Inpatient Referring: Jori Elizalde DO Performing: Jori Elizalde DO Reading: Jori Elizalde DO Inhalation Therapist: Roberta Roy RDCS,RDMS Nurse: ICU nurse Transesophageal Echocardiogram Indication: Aflutter BP: 115/92 HR: 127 Rhythm: A-Flutter Findings History: FOCUSED ECHO to look for clot prior to cardioversion. SOB, CP, tachycardia, smoker. Cardiomyopathy noted on Transthoracic echo. Technical Comments: The study quality is good. Left Ventricle: There is severely decreased left ventricular systolic function. No thrombus is visualized within the left ventricle. Left Atrium: The left atrium is severely dilated. There is faint spontaneous echo contrast visualized in the left atrium cavity and appendage. There is no thrombus visualized in the left atrial appendage. Right Ventricle: The right ventricle is mild to moderately dilated. The right ventricular global systolic function is severely reduced. Right Atrium: The right atrial cavity size is severely dilated. MARCO Procedures: History and physical as well as labs were reviewed. The patient was in a fasting state. Risks and benefits of the procedure, including alternatives, were discussed and written informed consent was obtained. The patient and/or their health care entry level account representative expressed understanding of the procedure, risks and benefits. Baseline and continuous monitoring of blood pressure, heart rate, pulse oximetry and heart rhythm was performed throughout the procedure. The appropriate time-out procedure was performed as per [facility] [place] protocol. The patient was placed in the left lateral decubitus position. The patient's posterior pharynx was anesthetized with 20ml of 2% viscous lidocaine. The patient received IV Midazolam with a total dose of 4 mg. The patient received IV Fentanyl with a total dose of 125 mcg. The patient received IV propofol with a total dose of 100 mg which was given by Dr. Bailey. An oral bite block was inserted for protection of oral dentition. The multiplane transesophageal echocardiogram probe was inserted through the posterior oropharynx and advanced into the esophagus without difficulty. Multiple 2D images were obtained of the heart and its related structures. Color flow Doppler was used for evaluation. Spectral Doppler was also used. The atrial septum was interrogated with color flow Doppler. At the conclusion of the procedure the probe was removed with continuous suction without complications. The patient tolerated the procedure with no apparent complications. Contrast: Definity was used to optimize study. A total of 3 ml was given by SHEET TURNER. Conclusions There is severely decreased left ventricular systolic function. The left atrium is severely dilated. There is no thrombus visualized in the left atrium or left atrial appendage. There were prominent pectinate in the RACHEL and definity imaging enhancement agent was used to optimize study The right ventricle is mild to moderately dilated. The right ventricular global systolic function is severely reduced. The right atrial cavity size is severely dilated. Limited study due to patients medical condition to minimize procedure time Study followed by successful cardioversion from atrial flutter to sinus rhythm No prior MARCO's available for comparison at time of interpretation
--- NOTE | 2017-10-18 09:32 | PN ---
Subjective Date of Service: 10/18/17 Interval History: f/u atrial flutter, biventricular cardiomyopathy, thyrotoxicosis Breathing better today but still with dyspnea Good response to lasix yesterday Still has central pleuritic chest discomfort Maintained sinus rhythm overnight D/w Dr Alejandra ok to change beta-james Medications Active Medications: Carvedilol (Coreg Tab*) 6.25 mg PO BID [facility] Enoxaparin Sodium (Lovenox(*)) 120 mg SUBCUT Q12H [facility] Last Admin: 10/17/17 23:02 Dose: 120 mg Heparin Sodium (Porcine) (Heparin Flush Picc/Ml/Cvc(*)) 1 - 3 ml FLUSH 0600, 1800 [facility] PRN Reason: Protocol Last Admin: 10/18/17 05:13 Dose: 3 ml Multivitamins/Minerals (Theragran/Minerals Tab*) 1 tab PO DAILY [facility] Last Admin: 10/18/17 08:30 Dose: 1 tab Omeprazole (Prilosec Cap*) 40 mg PO BID AC [facility] Last Admin: 10/18/17 08:28 Dose: 40 mg Ondansetron HCl (Zofran 40 Mg Vial*) 4 mg IV Q6H PRN PRN Reason: NAUSEA Last Admin: 10/17/17 12:24 Dose: 4 mg Prednisone (Deltasone Tab*) 40 mg PO DAILY [facility] Propylthiouracil (Ptu Tab*) 200 mg PO Q6H [facility] Zolpidem Tartrate (Ambien Tab*) 10 mg PO BEDTIME PRN PRN Reason: INSOMNIA Last Admin: 10/17/17 23:02 Dose: 10 mg Objective Vital Signs: Temp Pulse Resp BP Pulse Ox 97.5 F 77 20 112/72 97 10/18/17 07:30 10/18/17 07:00 10/18/17 07:00 10/18/17 07:00 10/18/17 07:00 Oxygen Devices in Use Now: Nasal Cannula Appearance: obese, not toxic appearing Ears/Nose/Mouth/Throat: Clear Oropharnyx, Mucous Membranes Moist Neck: Trachea Midline, - - uncertain jvp Respiratory: - - no increased work of breathing, no obvious rales, distant breath sounds Cardiovascular: - - RRR, prominent PMI, no murmur Abdominal: - - obese, nontender Extremities: No Clubbing, Cyanosis, - - legs obese with edema Skin: No Rash or Ulcers Neurological: Alert and Oriented x 3 Laboratory Results: 10/18/17 05:25 10/18/17 05:25 INR (Anticoag Therapy) 1.40 (0.77-1.02) H 10/18/17 05:25 APTT 34.2 seconds (26.0-36.3) 10/16/17 16:04 Total Bilirubin 1.80 mg/dL (0.2-1.0) H 10/18/17 05:25 Direct Bilirubin 1.00 mg/dL (0.03-0.18) H 10/18/17 05:25 Indirect Bilirubin 0.8 mg/dL (0.3-1.0) 10/18/17 05:25 AST 39 U/L (13-39) 10/18/17 05:25 ALT 41 U/L (7-52) 10/18/17 05:25 Alkaline Phosphatase 120 U/L (34-104) H 10/18/17 05:25 CK-MB (CK-2) 1.8 ng/mL (0.6-6.3) 10/16/17 16:04 B-Natriuretic Peptide 335 pg/mL (-100) H 10/18/17 05:25 Total Protein 6.2 g/dL (6.4-8.9) L 10/18/17 05:25 Albumin 3.5 g/dL (3.2-5.2) 10/18/17 05:25 Globulin 2.7 g/dL (2-4) 10/18/17 05:25 Albumin/Globulin Ratio 1.3 (1-3) 10/18/17 05:25 TSH 0.00 mcIU/mL (0.34-5.60) L 10/16/17 16:04 10/16/17 10/16/17 19:43 21:55 Troponin I 0.03 0.02 Diagnostic Imaging: admission: CTA of his chest showing no evidence of pulmonary embolus, moderate degree of right pleural effusion with vascular congestion, moderate degree of mediastinal and hilar adenopathy of uncertain etiology. Echo 10/18/2017: Severe biventricular cardiomyopathy with dilated atria and no significant valvular abnormalities noted MARCO 10/19/2017 limited study with definity: No LA/RACHEL thrombus Assessment/Plan Brant Pearce is a 31 year old man I am evaluating for new onset severe biventricular heart failure in the setting of rapid atrial flutter and thyrotoxicosis. Ruled out for ACS. S/p MARCO/cardioversion 10/17/2017 and symptomatically improving - Change propanolol to coreg 6.25 mg po bid (ordered). Will uptitrate as tolerated - Will add AceI/Arb once further stable - Continue therapeutic lovenox. If no procedural plans can change to xarelto 20 mg po daily x 1 month - If no plans for thoracentesis would give another dose of IV lasix - Can be transferred to telemetry from a cardiac standpoint - Other treatment/evaluation per Medicine/Endocrine - Will follow Thank you for allowing me to participate in the cardiovascular care of this patient. Please do not hesitate to contact me with questions or concerns.
[2017-10-18] MEDS ORDERED: Metoclopramide TAB* 10 MG PO PRN (11:19)
[2017-10-18] MEDS ORDERED: Furosemide IV* 10 MG/ML VIAL (40 MG) IV SLOW PU ONE (11:19)
[2017-10-18] MEDS ORDERED: Magnesium Hydroxide LIQ* 30 ML UDC PO PRN (11:20)
[2017-10-18] MEDS ORDERED: Lidocaine 2% PF * 5 ML VIAL ONE ×2 (12:13→12:40)
[2017-10-18] MEDS ORDERED: Morphine INJ* 4 MG/ML 1 ML CARPUJECT IV PRN (13:29)
[2017-10-18] MEDS: Carvedilol TAB* 6.25 MG PO SCH ×2 (13:34→20:37)
[2017-10-18] MEDS: predniSONE TAB* 20 MG PO SCH (13:35)
[2017-10-18] MEDS: Morphine VIAL* 4 MG/ML VIAL (1 ml vial) IV PRN ×2 (13:57→20:38)
--- NOTE | 2017-10-18 14:24 | PN ---
Progress Note - Progress Note Date of Service: 10/18/17 Note: CRITICAL CARE MEDICINE Date: 10/18/17 Time: 1100 SUBJECTIVE: Patient seen and examined. PHYSICAL EXAM: Vital Signs: Reviewed. HR 80s. rr20s, dec o2. bp stable Neurologic: awake, communicating. looks a bit worn but better, HEENT: pupils equal. Sclera mild icteric. Cardiovascular: S1 S2 Respiratory: dec on R bases Abdomen: Soft, obese, nt. No r/g/r. Extremities: warm. no pitting edema Access: picc LABS: Reviewed. IMAGING: Reviewed. MEDICATIONS: Reviewed. ASSESSMENT/PLAN: 31 M Graves disease / thyroid crisis with atrial tachycarida now post cardioversion yesterday with tachy induced cardiomyopathy Right acute pleural effusion mediastinal adenopathy hyperbili obesity we discussed his improved hr and time needing for cardiac recovery. meds adjusted by cards. we discussed tx still for t4 and Dr. Alejandra following we discussed thoracentesis and +/- of doing; will plan today po. oob. held lovenox for procedure and then can resume ICU care Supportive and preventative care as ordered. Disposition: ICU Code Status: Full Critical Care Time: 30min Brandi Bailey DO
--- NOTE | 2017-10-18 14:32 | PN ---
Progress Note - Progress Note Date of Service: 10/18/17 Note: CRITICAL CARE MEDICINE PROCEDURE NOTE DATE OF PROCEDURE: SERVICE: Critical Care Medicine LOCATION OF PROCEDURE: ICU PROCEDURE: RIGHT Thoracentesis PROCEDURALIST: Dr. Bailey Consent obtain: Yes Time out held: Yes INDICATION: Pleural effusion PROCEDURE: Oxygenation maintained and vitals monitored. Patient in sitting position Site and side marked with initials and date. Chlorhexidine prep x 2 at site and full sterile drape, gown, and gloves utilized. Total 15ml 1% lidocaine utilized locally plus 2% 5mls. Small incision via scalpel at skin. Standard sterile technique utilized via ultrasound guidance. Needle retracted when fluid aspirated via advanced negative pressure technique. We achieved some fluid but then stopped. Unable to manipulate. Had to allow passage with second catheter, which then contacted fluid. Catheter was inserted to 14cm and only total 45ml aspirated after much manipulate. catheter in place on us as well and seemed clotted off after extracting. Pt overly uncomfortable with procedures and therefore no attempt at further fluid. Enough for dx but not really therapeutic. Consistency was serous brownish due to red and yellow mix with cellular debris less dense then fluid. Minimal to Nil blood loss. Site covered with band aid. Specimens were sent to lab. Portable chest x-ray pending. Patient otherwise tolerated well. Both parents present throughout. Brandi Bailey DO
--- NOTE | 2017-10-18 15:07 | RAD ---
Indication: Post small volume thoracentesis. Comparison: October 17, 2017 RIGHT upper quadrant ultrasound remarkable for RIGHT pleural effusion. October 16, 2017 CT. Technique: Upright AP 1420 hours Report: Tip of RIGHT upper extremity PICC at level of superior vena cava directed central. Mild prominence of interstitial markings. Accounting for superimposed soft tissues with large body habitus the lungs and pleural spaces are otherwise clear. Negative for pneumothorax. Cardiomegaly without significant change. Prominent central pulmonary vasculature with cephalization. IMPRESSION: 1. No significant residual RIGHT pleural fluid conspicuous. 2. Negative for pneumothorax. 3. Mild pulmonary vascular congestion and interstitial edema.
[2017-10-18] MEDS: Zolpidem TAB* 10 MG PO PRN (23:05)
[2017-10-19] MEDS: Propylthiouracil TAB* 50 MG PO SCH ×4 (02:15→22:20)
[2017-10-19 05:44] LABS: EGFR Non-African American 153.2 (>60)
[2017-10-19] MEDS: Omeprazole CAP* 20 MG PO SCH ×2 (08:48→15:47)
--- NOTE | 2017-10-19 10:14 | PN ---
Subjective - Subjective Reason for Note: Consultation Note History: Endocrinology: He is feeling improved and walking around his room. 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 Thickening of wall of gallbladder (Acute) K82.8 Thyroid crisis or storm (Acute) E05.91 Current Medications: Current Medications Carvedilol (Coreg Tab*) 6.25 mg PO BID [facility] Last Admin: 10/18/17 20:37 Dose: 6.25 mg Enoxaparin Sodium (Lovenox(*)) 120 mg SUBCUT Q12H [facility] Last Admin: 10/18/17 20:38 Dose: 120 mg Heparin Sodium (Porcine) (Heparin Flush Picc/Ml/Cvc(*)) 1 - 3 ml FLUSH 0600, 1800 [facility] PRN Reason: Protocol Last Admin: 10/19/17 05:09 Dose: 3 ml Magnesium Hydroxide (Milk Of Magnesia Liq*) 30 ml PO Q4H PRN PRN Reason: DYSPEPSIA Metoclopramide HCl (Reglan Tab*) 5 mg PO Q6H PRN PRN Reason: DYSPEPSIA Morphine Sulfate (Morphine Vial*) 4 mg IV Q2H PRN PRN Reason: PAIN Last Admin: 10/18/17 20:38 Dose: 4 mg Multivitamins/Minerals (Theragran/Minerals Tab*) 1 tab PO DAILY [facility] Last Admin: 10/18/17 08:30 Dose: 1 tab Omeprazole (Prilosec Cap*) 40 mg PO BID AC [facility] Last Admin: 10/19/17 08:48 Dose: 40 mg Ondansetron HCl (Zofran 40 Mg Vial*) 4 mg IV Q6H PRN PRN Reason: NAUSEA Last Admin: 10/17/17 12:24 Dose: 4 mg Prednisone (Deltasone Tab*) 40 mg PO DAILY [facility] Last Admin: 10/18/17 13:35 Dose: 40 mg Propylthiouracil (Ptu Tab*) 200 mg PO Q6H [facility] Last Admin: 10/19/17 08:48 Dose: 200 mg Zolpidem Tartrate (Ambien Tab*) 10 mg PO BEDTIME PRN PRN Reason: INSOMNIA Last Admin: 10/18/17 23:05 Dose: 10 mg Home Medications: Home Medications Medication Instructions Recorded Confirmed Type Multivitamins/Minerals TAB* 1 tab PO DAILY 10/16/17 10/16/17 History [Theragran/minerals TAB*] Allergies: Allergies Allergy/AdvReac Type Severity Reaction Status Date / Time No Known Allergies Allergy Verified 10/16/17 16:05 - Social History Living Situation: Currently living at his mother's house Occupation: [employer] - currently out of work. Objective - Vital Signs Vital Signs: Vital Signs 10/18/17 10/18/17 10/18/17 11:00 12:00 13:00 Temperature 98.1 F Pulse Rate 77 84 Respiratory 20 17 22 Rate Blood Pressure 126/94 124/83 (mmHg) O2 Sat by Pulse 92 99 Oximetry 10/18/17 10/18/17 10/18/17 13:02 13:57 14:00 Temperature Pulse Rate 82 84 Respiratory 18 21 19 Rate Blood Pressure 119/79 116/84 (mmHg) O2 Sat by Pulse 94 92 Oximetry 10/18/17 10/18/17 10/18/17 15:00 16:00 17:00 Temperature 97.3 F Pulse Rate 80 79 73 Respiratory 220 21 22 Rate Blood Pressure 127/82 115/69 120/79 (mmHg) O2 Sat by Pulse 94 94 98 Oximetry 10/18/17 10/18/17 10/18/17 18:00 19:00 19:18 Temperature 97.8 F Pulse Rate 75 81 Respiratory 24 23 Rate Blood Pressure 130/72 108/61 (mmHg) O2 Sat by Pulse 95 96 Oximetry 10/18/17 10/18/17 10/18/17 20:00 20:38 21:00 Temperature Pulse Rate 55 74 Respiratory 21 17 17 Rate Blood Pressure 119/51 107/66 (mmHg) O2 Sat by Pulse 96 91 Oximetry 10/18/17 10/18/17 10/18/17 22:00 23:00 23:11 Temperature Pulse Rate 72 74 107 Respiratory 19 23 20 Rate Blood Pressure 100/64 114/78 (mmHg) O2 Sat by Pulse 93 94 93 Oximetry 10/18/17 10/19/17 10/19/17 23:33 00:00 01:00 Temperature 97.7 F Pulse Rate 53 64 Respiratory 9 17 Rate Blood Pressure 106/61 100/64 (mmHg) O2 Sat by Pulse 94 93 Oximetry 10/19/17 10/19/17 10/19/17 02:00 03:00 04:00 Temperature 97.0 F Pulse Rate 63 51 50 Respiratory 15 17 16 Rate Blood Pressure 116/66 117/81 103/62 (mmHg) O2 Sat by Pulse 94 96 94 Oximetry 10/19/17 10/19/17 10/19/17 05:00 06:00 07:00 Temperature Pulse Rate 48 71 67 Respiratory 16 19 12 Rate Blood Pressure 108/64 117/75 106/68 (mmHg) O2 Sat by Pulse 96 96 94 Oximetry 10/19/17 08:00 Temperature 97.7 F Pulse Rate Respiratory Rate Blood Pressure (mmHg) O2 Sat by Pulse Oximetry - Intake and Output Intake and Output: Intake & Output 10/16/17 10/17/17 10/18/17 10/19/17 11:59 11:59 11:59 11:59 Intake Total 811 1895 1780 Output Total 1650 2240 1775 Balance -839 -345 5 Weight 272 lb 4.334 oz 270 lb 4.587 oz 263 lb 0.183 oz Intake: IV Fluids 50 345 NS (0.9%) 50 345 Medicated IV 61 GEN - Magnesium 61 Oral 700 1550 1780 Output: Urine 1650 2240 1775 Barros 0 Other: Estimated Void Medium Date of Last Bowel 10/17/17 Movement # Bowel Movements 1 Estimated Stool Amount Medium # Voids 1 ADLs: Meal Record Start: 10/16/17 19: 26 Freq: ,,18 Status: Active Protocol: Created 10/16/17 19:26 System (Rec: 10/16/17 19:26 System ICU-M22) Document 10/17/17 09:00 [id number] (Rec: 10/17/17 13:06 [id number] ICU-C16) Document 10/17/17 13:00 [id number] (Rec: 10/17/17 13:16 [id number] ICU-C16) Document 10/17/17 18:00 YBV7487 (Rec: 10/17/17 18:28 OHY4149 ICU-C18) Document 10/18/17 10:30 JRF6009 (Rec: 10/18/17 14:10 OVR5566 ICU-C10) Document 10/18/17 13:00 SDG8617 (Rec: 10/18/17 18:09 VIO2772 ICU-C10) Document 10/18/17 18:00 DVR3925 (Rec: 10/18/17 18:09 VBV9498 ICU-C10) Intake and Output Start: 10/16/17 19: 26 Freq: Q1HR Status: Active Protocol: Created 10/16/17 19:26 System (Rec: 10/16/17 19:26 System ICU-M22) Document 10/16/17 20:00 FAG3789 (Rec: 10/16/17 21:45 KSE9775 ICU-C16) Document 10/16/17 21:00 HNE9790 (Rec: 10/16/17 21:46 PRU1328 ICU-C16) Document 10/16/17 22:00 [id number] (Rec: 10/16/17 22:03 EMJ1014 ICU-C16) Document 10/16/17 23:00 KWH4614 (Rec: 10/16/17 23:04 FQW7039 ICU-C16) Document 10/16/17 23:45 TLS0614 (Rec: 10/16/17 23:50 ZKJ8635 ICU-C16) Document 10/17/17 01:00 SVF9831 (Rec: 10/17/17 01:53 CQU7604 ICU-C16) Document 10/17/17 02:00 RSD0326 (Rec: 10/17/17 02:45 TEW9908 ICU-C16) Document 10/17/17 03:00 GUZ6965 (Rec: 10/17/17 03:53 BSA9020 ICU-C16) Document 10/17/17 03:54 FUY4073 (Rec: 10/17/17 04:05 VHH5723 ICU-C16) Document 10/17/17 05:00 NJD0558 (Rec: 10/17/17 05:01 CWK2188 ICU-C16) Document 10/17/17 06:00 QZM0819 (Rec: 10/17/17 06:16 QKE1379 ICU-C16) Document 10/17/17 07:00 HSA2788 (Rec: 10/17/17 08:58 PFG7723 ICU-C16) Document 10/17/17 08:00 PWY8472 (Rec: 10/17/17 13:06 CQV2082 ICU-C16) Document 10/17/17 09:00 KFO8580 (Rec: 10/17/17 13:07 VSN4214 ICU-C16) Document 10/17/17 10:00 OIN9252 (Rec: 10/17/17 13:08 BIC7602 ICU-C16) Document 10/17/17 11:00 JBF6786 (Rec: 10/17/17 13:09 SSY9345 ICU-C16) Document 10/17/17 12:00 CFS1700 (Rec: 10/17/17 13:15 XTO9488 ICU-C16) Document 10/17/17 13:00 PMK8451 (Rec: 10/17/17 13:16 DIN0455 ICU-C16) Document 10/17/17 14:00 XMW4161 (Rec: 10/17/17 20:15 IRT6591 ICU-C10) Document 10/17/17 15:00 OML5533 (Rec: 10/17/17 20:15 QCO1853 ICU-C10) Document 10/17/17 16:00 XKW6350 (Rec: 10/17/17 20:15 HPB1450 ICU-C10) Document 10/17/17 17:00 MMV2181 (Rec: 10/17/17 20:15 OXV9646 ICU-C10) Document 10/17/17 18:00 HBT0044 (Rec: 10/17/17 20:15 JTN5745 ICU-C10) Document 10/17/17 19:00 MPC8338 (Rec: 10/17/17 21:40 EUE8456 ICU-C14) Document 10/17/17 20:00 LNP9622 (Rec: 10/17/17 21:41 KDO2454 ICU-C14) Document 10/17/17 21:00 ITD6590 (Rec: 10/17/17 21:42 BYE3555 ICU-C14) Document 10/17/17 22:00 HBH7151 (Rec: 10/18/17 00:08 UOK2609 ICU-C15) Document 10/17/17 23:00 VOE7303 (Rec: 10/18/17 00:09 NZB3213 ICU-C15) Document 10/18/17 00:00 OGO6657 (Rec: 10/18/17 00:09 MVS9382 ICU-C15) Document 10/18/17 01:00 QGS9747 (Rec: 10/18/17 01:50 KYQ6798 ICU-C15) Document 10/18/17 02:00 WFD6854 (Rec: 10/18/17 02:15 FGU6065 ICU-C15) Document 10/18/17 03:00 KOT6406 (Rec: 10/18/17 03:31 FKH9296 ICU-C15) Document 10/18/17 04:00 WYC8265 (Rec: 10/18/17 06:05 UAW2117 ICU-C15) Document 10/18/17 05:00 RQE6346 (Rec: 10/18/17 06:05 AHY0125 ICU-C15) Document 10/18/17 06:00 MAF6458 (Rec: 10/18/17 06:05 CAY0210 ICU-C15) Document 10/18/17 07:00 WRK8151 (Rec: 10/18/17 07:08 RDA4383 ICU-C15) Document 10/18/17 09:00 KXO6022 (Rec: 10/18/17 15:32 BWH5898 ICU-C10) Document 10/18/17 11:00 GYC1548 (Rec: 10/18/17 15:32 QCX3603 ICU-C10) Document 10/18/17 14:00 GRR3715 (Rec: 10/18/17 15:32 JSQ2252 ICU-C10) Document 10/18/17 17:00 KXA9813 (Rec: 10/18/17 17:01 PPH0068 ICU-C14) Document 10/18/17 18:00 QGA8229 (Rec: 10/18/17 18:15 QPI0348 ICU-C10) Document 10/18/17 19:00 JUB2214 (Rec: 10/18/17 20:48 QZA3818 ICU-C16) Document 10/18/17 20:00 KEC1633 (Rec: 10/18/17 21:18 IOA1837 ICU-C16) Document 10/18/17 21:00 QEX5683 (Rec: 10/18/17 21:18 PJS0844 ICU-C16) Document 10/18/17 21:35 ORN2229 (Rec: 10/18/17 21:43 RHT4600 ICU-M20) Document 10/18/17 23:00 TUK8004 (Rec: 10/18/17 23:14 DTW4714 ICU-C16) Document 10/19/17 00:00 KQZ4579 (Rec: 10/19/17 00:51 KEU8384 ICU-C16) Document 10/19/17 01:00 LYK7675 (Rec: 10/19/17 01:10 TZP0133 ICU-C16) Document 10/19/17 02:00 SLR9857 (Rec: 10/19/17 02:29 PFZ3726 ICU-C16) Document 10/19/17 03:00 KSL3461 (Rec: 10/19/17 03:14 IKV8366 ICU-C16) Document 10/19/17 04:00 MVP1380 (Rec: 10/19/17 04:41 DIX0241 ICU-C16) Document 10/19/17 05:00 AFB4068 (Rec: 10/19/17 05:21 DGS3072 ICU-C16) Document 10/19/17 05:38 QAX6208 (Rec: 10/19/17 05:38 ZKP3243 ICU-M20) Document 10/19/17 07:00 PKC8080 (Rec: 10/19/17 07:07 RCR3063 ICU-C16) - Physical Exam General: No Cyanosis, No Anemia, No Jaundice, No Clubbing Lungs and Chest: Yes: Chest Expansion Full, Chest Expansion Symetrica, Percussion Note Resonant, Vessicular Breath Sounds. No: Crackles Heart Rate and Rhythm: Regular Additional Cardiovascular: Yes: Normal Heart Sounds, Pedal Edema - trace Results - Results Lab Results: Laboratory Results - last 24 hr 10/18/17 10/19/17 13:00 05:18 Sodium 138 L Potassium 4.2 Chloride 103 Carbon Dioxide 28 Anion Gap 7 BUN 24 Creatinine 0.61 L Est GFR ( Amer) 197.0 Est GFR (Non-Af Amer) 153.2 BUN/Creatinine Ratio 39.3 H Glucose 127 H Calcium 9.0 Total Bilirubin 1.50 H Direct Bilirubin 0.70 H Indirect Bilirubin 0.8 AST 37 ALT 44 Alkaline Phosphatase 104 Total Protein 6.0 L Albumin 3.5 Globulin 2.5 Albumin/Globulin Ratio 1.4 Free T4 4.01 H Free T3 4.10 H Total T3 0.75 L Fluid Source Pleural fluid Fluid Volume 33 Fluid Color Yellow Fluid Appearance Clear Fluid WBC 5 Fluid RBC 1645 Fluid Tot Cell Count 50 Fluid Neutrophils 22 Fluid Lymphocytes 50 Fluid Monocytes 28 Assessment - Problem List Assessment: Patient Problems Cardiac LV ejection fraction <20% (Acute) Cholelithiasis (Acute) Chronic lymphocytic thyroiditis (Acute) Elevated alkaline phosphatase level (Acute) Epigastric pain (Acute) Graves disease (Acute) Hilar lymphadenopathy (Acute) Insomnia (Acute) Mediastinal lymphadenopathy (Acute) Nausea and vomiting (Acute) Obstructive hyperbilirubinemia (Acute) Pleural cavity effusion (Acute) Pretibial myxedema (Acute) Thickening of wall of gallbladder (Acute) Thyroid crisis or storm (Acute) Plan: Thyroid crisis or storm (Acute)Graves disease (Acute) Chronic lymphocytic thyroiditis (Acute) This is now under good control. His total T3 is now low, his FT3 is barely elevated. The FT4 is high due to blockage of T4 to T3. I will cut back more on the PTU to 100 mg tid. I will taper the prednisone. Cardiac LV ejection fraction <20% (Acute) He remains in sinus rhythm. He is less edematous - chest Xray is clearing. Dr. Elizalde will recheck his EF by echocardiogram on Saturday (today Saturday) Cholelithiasis (Acute) Hilar lymphadenopathy (Acute) Mediastinal lymphadenopathy (Acute) We will address this long-term Insomnia (Acute) Sleeping with zolpidem Nausea and vomiting (Acute) improved Obstructive hyperbilirubinemia (Acute) Bilirubin is coming down Pleural cavity effusion (Acute) Dr. Bailey tapped his effusion - unusual consistency, but not particularly cellular Pretibial myxedema (Acute) no sy mptoms Thickening of wall of gallbladder (Acute) No further abdominal pain - we will need to address this long-term Elevated alkaline phosphatase level (Acute) improved Epigastric pain (Acute) improved I discussed the above with the patient
[2017-10-19] MEDS ORDERED: Carvedilol TAB* 6.25 MG PO SCH ×2 (10:17→10:40)
[2017-10-19] MEDS ORDERED: Furosemide IV* 10 MG/ML 2 ML VIAL (20 MG) IV ONE (10:18)
--- NOTE | 2017-10-19 10:26 | PN ---
Subjective Date of Service: 10/19/17 Interval History: f/u atrial flutter, biventricular cardiomyopathy, thyrotoxicosis Breathing better today but still with dyspnea 02 sats 91% on room air currently s/p thoracentesis yesterday, results pending Another good response to lasix yesterday Able to take a deeper breath today Maintained sinus rhythm overnight, asymptomatic sinus bradycardia while sleeping Medications Active Medications: Carvedilol (Coreg Tab*) 12.5 mg PO BID [facility] Enoxaparin Sodium (Lovenox(*)) 120 mg SUBCUT Q12H [facility] Last Admin: 10/18/17 20:38 Dose: 120 mg Furosemide (Lasix Iv*) 10 mg IV ONCE ONE Stop: 10/19/17 10:19 Heparin Sodium (Porcine) (Heparin Flush Picc/Ml/Cvc(*)) 1 - 3 ml FLUSH 0600, 1800 [facility] PRN Reason: Protocol Last Admin: 10/19/17 05:09 Dose: 3 ml Magnesium Hydroxide (Milk Of Magnesia Liq*) 30 ml PO Q4H PRN PRN Reason: DYSPEPSIA Metoclopramide HCl (Reglan Tab*) 5 mg PO Q6H PRN PRN Reason: DYSPEPSIA Morphine Sulfate (Morphine Vial*) 4 mg IV Q2H PRN PRN Reason: PAIN Last Admin: 10/18/17 20:38 Dose: 4 mg Multivitamins/Minerals (Theragran/Minerals Tab*) 1 tab PO DAILY [facility] Last Admin: 10/18/17 08:30 Dose: 1 tab Omeprazole (Prilosec Cap*) [address] [facility] Last Admin: 10/19/17 08:48 Dose: 40 mg Ondansetron HCl (Zofran 40 Mg Vial*) 4 mg IV Q6H PRN PRN Reason: NAUSEA Last Admin: 10/17/17 12:24 Dose: 4 mg Prednisone (Deltasone Tab*) 20 mg PO DAILY [facility] Propylthiouracil (Ptu Tab*) 100 mg PO Q8H [facility] Zolpidem Tartrate (Ambien Tab*) 10 mg PO BEDTIME PRN PRN Reason: INSOMNIA Last Admin: 10/18/17 23:05 Dose: 10 mg Objective Vital Signs: Temp Pulse Resp BP Pulse Ox 97.7 F 67 12 106/68 94 10/19/17 08:00 10/19/17 07:00 10/19/17 07:00 10/19/17 07:00 10/19/17 07:00 Oxygen Devices in Use Now: Nasal Cannula Appearance: obese, not toxic appearing Ears/Nose/Mouth/Throat: Clear Oropharnyx, Mucous Membranes Moist Neck: Trachea Midline, - - uncertain jvp Respiratory: - - no increased work of breathing, no obvious rales, distant breath sounds Cardiovascular: - - RRR, prominent PMI, no murmur Abdominal: - - obese, nontender Extremities: No Clubbing, Cyanosis, - - legs obese, no edema Skin: No Rash or Ulcers Neurological: Alert and Oriented x 3 Laboratory Results: 10/18/17 05:25 10/19/17 05:18 INR (Anticoag Therapy) 1.40 (0.77-1.02) H 10/18/17 05:25 APTT 34.2 seconds (26.0-36.3) 10/16/17 16:04 Total Bilirubin 1.50 mg/dL (0.2-1.0) H 10/19/17 05:18 Direct Bilirubin 0.70 mg/dL (0.03-0.18) H 10/19/17 05:18 Indirect Bilirubin 0.8 mg/dL (0.3-1.0) 10/19/17 05:18 AST 37 U/L (13-39) 10/19/17 05:18 ALT 44 U/L (7-52) 10/19/17 05:18 Alkaline Phosphatase 104 U/L (34-104) 10/19/17 05:18 CK-MB (CK-2) 1.8 ng/mL (0.6-6.3) 10/16/17 16:04 B-Natriuretic Peptide 335 pg/mL (-100) H 10/18/17 05:25 Total Protein 6.0 g/dL (6.4-8.9) L 10/19/17 05:18 Albumin 3.5 g/dL (3.2-5.2) 10/19/17 05:18 Globulin 2.5 g/dL (2-4) 10/19/17 05:18 Albumin/Globulin Ratio 1.4 (1-3) 10/19/17 05:18 TSH 0.00 mcIU/mL (0.34-5.60) L 10/16/17 16:04 10/16/17 10/16/17 10/16/17 16:04 19:43 21:55 Troponin I 0.03 0.03 0.02 Diagnostic Imaging: admission: CTA of his chest showing no evidence of pulmonary embolus, moderate degree of right pleural effusion with vascular congestion, moderate degree of mediastinal and hilar adenopathy of uncertain etiology. Echo 10/18/2017: Severe biventricular cardiomyopathy with dilated atria and no significant valvular abnormalities noted MARCO 10/19/2017 limited study with definity: No LA/RACHEL thrombus EKG admission: 2:1 rapid atrial flutter EKG post-conversion: NSR, LAE, incomplete RBB Assessment/Plan Brant Pearce is a 31 year old man I am evaluating for new onset severe biventricular heart failure in the setting of several months of rapid atrial flutter and thyrotoxicosis. Ruled out for ACS. S/p MARCO/cardioversion 10/17/2017 and symptomatically improving with diuresis - Increase coreg to 12.5 mg po bid (ordered) - Will add AceI/Arb once further stable - Continue therapeutic lovenox. If no procedural plans can change to xarelto 20 mg po daily x 1 month - Give lasix 10 mg IV x 1 today (ordered) - Can be transferred to telemetry from a cardiac standpoint - Plan for limited echo Saturday although LVEF may take weeks or months to recover - Other treatment/evaluation per Medicine/Endocrine - d/w Dr. Alejandra and Dr. Bailey - Will follow Thank you for allowing me to participate in the cardiovascular care of this patient. Please do not hesitate to contact me with questions or concerns.
[2017-10-19] MEDS: Carvedilol TAB* 6.25 MG PO SCH ×3 (10:48→20:39)
[2017-10-19] MEDS: Multivitamins/Minerals TAB PO SCH (10:48)
[2017-10-19] MEDS: Enoxaparin(*) 150 MG/ML 1 ML SYRINGE SUBCUT SCH ×2 (10:49→22:21)
[2017-10-19] MEDS: predniSONE TAB* 20 MG PO SCH ×2 (10:57→12:22)
[2017-10-19] MEDS ORDERED: Propylthiouracil TAB* 50 MG PO SCH (11:00)
--- NOTE | 2017-10-19 11:11 | PN ---
Progress Note - Progress Note Date of Service: 10/19/17 Note: CRITICAL CARE MEDICINE Date: 10/19/17 Time: 1020 SUBJECTIVE: Patient seen and examined. mom at bedside. PHYSICAL EXAM: Vital Signs: Reviewed. HR 80s. rr teens. ra. Neurologic: awake, communicating. looks better HEENT: pupils equal. Sclera mild icteric. Cardiovascular: S1 S2 Respiratory: clear Abdomen: Soft, obese, nt. Extremities: warm. no edema Access: picc LABS: Reviewed. IMAGING: Reviewed. MEDICATIONS: Reviewed. ASSESSMENT/PLAN: 31 M Graves disease / thyroid crisis atrial tachycarida now post cardioversion 10/18 tachy induced carrdiomyopathy Right acute pleural effusion - s/p dx throa 10/19 mediastinal adenopathy hyperbili sec to above obesity gastroparesis improving. cards f/u. will need time for cardiac recovery - rehab needs; meds adjusted per cards. Dr. Alejandra following which is fantastic and can care for graves; meds adjusted we discussed thoracentesis pre-falcon results and await path comment. f/u med ln. po. oob. ok for tele. hopefully dispo early in this next week. Supportive and preventative care as ordered. Disposition: tele Code Status: Full Critical Care Time: 25min Brandi Bailey DO
[2017-10-19] MEDS: Propranolol TAB* 60 MG PO SCH (12:24)
[2017-10-19] MEDS: Zolpidem TAB* 10 MG PO PRN (20:41)
[2017-10-19] MEDS: Morphine VIAL* 4 MG/ML VIAL (1 ml vial) IV PRN (22:37)
[2017-10-20] MEDS: Propylthiouracil TAB* 50 MG PO SCH ×3 (07:17→22:27)
[2017-10-20] MEDS: Omeprazole CAP* 20 MG PO SCH ×2 (07:18→18:04)
[2017-10-20] MEDS: Carvedilol TAB* 6.25 MG PO SCH ×2 (08:44→20:36)
[2017-10-20] MEDS: Multivitamins/Minerals TAB PO SCH (08:44)
[2017-10-20] MEDS: predniSONE TAB* 20 MG PO SCH (08:44)
--- NOTE | 2017-10-20 09:46 | PN ---
Subjective Date of Service: 10/20/17 Interval History: f/u atrial flutter, biventricular cardiomyopathy, thyrotoxicosis Patient looks and feels even much better today No trouble taking deep breath Able to ambulate to bathroom without dyspnea or lightheadedness 02 sats mid 90's on room air Effusion transudative Sitting up eating breakfast Tele SR Medications Active Medications: Carvedilol (Coreg Tab*) 12.5 mg PO BID [facility] Last Admin: 10/20/17 08:44 Dose: 12.5 mg Enoxaparin Sodium (Lovenox(*)) 120 mg SUBCUT Q12H [facility] Last Admin: 10/19/17 22:21 Dose: 120 mg Heparin Sodium (Porcine) (Heparin Flush Picc/Ml/Cvc(*)) 1 - 3 ml FLUSH 0600, 1800 [facility] PRN Reason: Protocol Last Admin: 10/20/17 07:18 Dose: 3 ml Losartan Potassium (Cozaar Tab*) 25 mg PO DAILY [facility] Magnesium Hydroxide (Milk Of Magnesia Liq*) 30 ml PO Q4H PRN PRN Reason: DYSPEPSIA Metoclopramide HCl (Reglan Tab*) 5 mg PO Q6H PRN PRN Reason: DYSPEPSIA Morphine Sulfate (Morphine Vial*) 4 mg IV Q2H PRN PRN Reason: PAIN Last Admin: 10/19/17 22:37 Dose: 4 mg Multivitamins/Minerals (Theragran/Minerals Tab*) 1 tab PO DAILY [facility] Last Admin: 10/20/17 08:44 Dose: 1 tab Omeprazole (Prilosec Cap*) [address] [facility] Last Admin: 10/20/17 07:18 Dose: 40 mg Ondansetron HCl (Zofran 40 Mg Vial*) 4 mg IV Q6H PRN PRN Reason: NAUSEA Last Admin: 10/17/17 12:24 Dose: 4 mg Prednisone (Deltasone Tab*) 20 mg PO DAILY [facility] Last Admin: 10/20/17 08:44 Dose: 20 mg Propylthiouracil (Ptu Tab*) 100 mg PO Q8H [facility] Last Admin: 10/20/17 07:17 Dose: 100 mg Zolpidem Tartrate (Ambien Tab*) 10 mg PO BEDTIME PRN PRN Reason: INSOMNIA Last Admin: 10/19/17 20:41 Dose: 10 mg Objective Vital Signs: Temp Pulse Resp BP Pulse Ox 97.3 F 65 20 113/74 96 10/20/17 03:22 10/20/17 03:22 10/20/17 03:22 10/20/17 03:22 10/20/17 03:22 Oxygen Devices in Use Now: None Appearance: obese, not toxic appearing Ears/Nose/Mouth/Throat: Clear Oropharnyx, Mucous Membranes Moist Neck: Trachea Midline, - - uncertain jvp Respiratory: Symmetrical Chest Expansion and Respiratory Effort, Clear to Auscultation, - Cardiovascular: - - RRR, pmi much less intense, no murmur Abdominal: - - obese, nontender Extremities: No Clubbing, Cyanosis, - - legs obese, no edema Skin: No Rash or Ulcers Neurological: Alert and Oriented x 3 Laboratory Results: 10/18/17 05:25 10/19/17 05:18 INR (Anticoag Therapy) 1.40 (0.77-1.02) H 10/18/17 05:25 APTT 34.2 seconds (26.0-36.3) 10/16/17 16:04 Total Bilirubin 1.50 mg/dL (0.2-1.0) H 10/19/17 05:18 Direct Bilirubin 0.70 mg/dL (0.03-0.18) H 10/19/17 05:18 Indirect Bilirubin 0.8 mg/dL (0.3-1.0) 10/19/17 05:18 AST 37 U/L (13-39) 10/19/17 05:18 ALT 44 U/L (7-52) 10/19/17 05:18 Alkaline Phosphatase 104 U/L (34-104) 10/19/17 05:18 CK-MB (CK-2) 1.8 ng/mL (0.6-6.3) 10/16/17 16:04 B-Natriuretic Peptide 335 pg/mL (-100) H 10/18/17 05:25 Total Protein 6.0 g/dL (6.4-8.9) L 10/19/17 05:18 Albumin 3.5 g/dL (3.2-5.2) 10/19/17 05:18 Globulin 2.5 g/dL (2-4) 10/19/17 05:18 Albumin/Globulin Ratio 1.4 (1-3) 10/19/17 05:18 TSH 0.00 mcIU/mL (0.34-5.60) L 10/16/17 16:04 10/16/17 10/16/17 10/16/17 16:04 19:43 21:55 Troponin I 0.03 0.03 0.02 Diagnostic Imaging: admission: CTA of his chest showing no evidence of pulmonary embolus, moderate degree of right pleural effusion with vascular congestion, moderate degree of mediastinal and hilar adenopathy of uncertain etiology. Echo 10/18/2017: Severe biventricular cardiomyopathy with dilated atria and no significant valvular abnormalities noted MARCO 10/19/2017 limited study with definity: No LA/RACHEL thrombus EKG admission: 2:1 rapid atrial flutter EKG post-conversion: NSR, LAE, incomplete RBB Assessment/Plan Brant Pearce is a 31 year old man admitted with new onset severe biventricular heart failure in the setting of several months of rapid atrial flutter and thyrotoxicosis. Ruled out for ACS. S/p MARCO/cardioversion 10/17/2017 and symptomatically improved with zoroastrian of sinus rhythm and medical management. - Continue coreg to 12.5 mg po bid - Add losartan 25 mg po daily (ordered) need a BMP in a week - Continue therapeutic lovenox. If no procedural plans can change to xarelto 20 mg po daily x 1 month - Plan for limited echo tomorrow AM although LVEF may take weeks or months to recover - Other treatment/evaluation per Medicine/Endocrine - Will arrange cardiology follow up, anticipate being able to be discharged from a cardiac standpoint on Saturday Thank you for allowing me to participate in the cardiovascular care of this patient. Please do not hesitate to contact me with questions or concerns.
[2017-10-20] MEDS: Losartan TAB* 25 MG PO SCH (10:44)
[2017-10-20] MEDS: Enoxaparin(*) 150 MG/ML 1 ML SYRINGE SUBCUT SCH ×2 (10:52→22:27)
--- NOTE | 2017-10-20 14:04 | PN ---
Objective Active Medications: Carvedilol (Coreg Tab*) 12.5 mg PO BID [facility] Last Admin: 10/20/17 08:44 Dose: 12.5 mg Enoxaparin Sodium (Lovenox(*)) 120 mg SUBCUT Q12H [facility] Last Admin: 10/20/17 10:52 Dose: 120 mg Heparin Sodium (Porcine) (Heparin Flush Picc/Ml/Cvc(*)) 1 - 3 ml FLUSH 0600, 1800 [facility] PRN Reason: Protocol Last Admin: 10/20/17 07:18 Dose: 3 ml Losartan Potassium (Cozaar Tab*) 25 mg PO DAILY [facility] Last Admin: 10/20/17 10:44 Dose: 25 mg Magnesium Hydroxide (Milk Of Magnesia Liq*) 30 ml PO Q4H PRN PRN Reason: DYSPEPSIA Metoclopramide HCl (Reglan Tab*) 5 mg PO Q6H PRN PRN Reason: DYSPEPSIA Morphine Sulfate (Morphine Vial*) 4 mg IV Q2H PRN PRN Reason: PAIN Last Admin: 10/19/17 22:37 Dose: 4 mg Multivitamins/Minerals (Theragran/Minerals Tab*) 1 tab PO DAILY [facility] Last Admin: 10/20/17 08:44 Dose: 1 tab Omeprazole (Prilosec Cap*) 40 mg PO BID [facility] Last Admin: 10/20/17 07:18 Dose: 40 mg Ondansetron HCl (Zofran 40 Mg Vial*) 4 mg IV Q6H PRN PRN Reason: NAUSEA Last Admin: 10/17/17 12:24 Dose: 4 mg Prednisone (Deltasone Tab*) 20 mg PO DAILY [facility] Last Admin: 10/20/17 08:44 Dose: 20 mg Propylthiouracil (Ptu Tab*) 100 mg PO Q8H [facility] Last Admin: 10/20/17 07:17 Dose: 100 mg Zolpidem Tartrate (Ambien Tab*) 10 mg PO BEDTIME PRN PRN Reason: INSOMNIA Last Admin: 10/19/17 20:41 Dose: 10 mg Vital Signs - 8 hr 10/20/17 10/20/17 10/20/17 07:16 08:00 11:10 Temperature 97.4 F Pulse Rate 65 Respiratory 16 16 16 Rate Blood Pressure 127/82 (mmHg) O2 Sat by Pulse 96 Oximetry 10/20/17 12:08 Temperature 97.9 F Pulse Rate 70 Respiratory 16 Rate Blood Pressure 121/79 (mmHg) O2 Sat by Pulse 94 Oximetry Oxygen Devices in Use Now: None Result Diagrams: 10/18/17 05:25 10/19/17 05:18 Additional Lab and Data: Lab Results 10/16/17 10/16/17 10/16/17 Range/Units 16:04 16:04 16:04 WBC 8.4 (3.5-10.8) 10^3/ul RBC 5.18 (4.0-5.4) 10^6/ul Hgb 13.8 L (14.0-18.0) g/dl Hct 41 L (42-52) % MCV 80 (80-94) fL MCH 27 (27-31) pg MCHC 34 (31-36) g/dl RDW 15 (10.5-15) % Plt Count 299 (150-450) 10^3/ul MPV 7.8 (7.4-10.4) um3 Neut % (Auto) 55.2 (38-83) % Lymph % (Auto) 31.3 (25-47) % [place] % (Auto) 11.3 H (0-7) % Eos % (Auto) 1.3 (0-6) % Baso % (Auto) 0.9 (0-2) % Absolute Neuts (auto) 4.6 (1.5-7.7) 10^3/ul Absolute Lymphs (auto) 2.6 (1.0-4.8) 10^3/ul Absolute Monos (auto) 0.9 H (0-0.8) 10^3/ul Absolute Eos (auto) 0.1 (0-0.6) 10^3/ul Absolute Basos (auto) 0.1 (0-0.2) 10^3/ul Absolute Nucleated RBC 0 10^3/ul Nucleated RBC % 0.1 INR (Anticoag Therapy) 1.40 H (0.77-1.02) APTT 34.2 (26.0-36.3) seconds D-Dimer, Quantitative 377 H (Less Than 230) ng/mL Sodium 141 (139-145) mmol/L Potassium 3.7 (3.5-5.0) mmol/L Chloride 109 (101-111) mmol/L Carbon Dioxide 21 L (22-32) mmol/L Anion Gap 11 (2-11) mmol/L BUN 11 (6-24) mg/dL Creatinine 0.51 L (0.67-1.17) mg/dL Est GFR ( Amer) 242.2 (>60) Est GFR (Non-Af Amer) 188.3 (>60) BUN/Creatinine Ratio 21.6 H (8-20) Glucose 107 H (70-100) mg/dL Lactic Acid (0.5-2.0) mmol/L Calcium 9.0 (8.6-10.3) mg/dL Magnesium 1.7 L (1.9-2.7) mg/dL Total Bilirubin 2.30 H (0.2-1.0) mg/dL AST 49 H (13-39) U/L ALT 48 (7-52) U/L Alkaline Phosphatase 134 H (34-104) U/L Total Creatine Kinase 43 (10-223) U/L CK-MB (CK-2) 1.8 (0.6-6.3) ng/mL Troponin I 0.03 (<0.04) ng/mL B-Natriuretic Peptide ( - 100) pg/mL Total Protein 6.6 (6.4-8.9) g/dL Albumin 3.8 (3.2-5.2) g/dL Globulin 2.8 (2-4) g/dL Albumin/Globulin Ratio 1.4 (1-3) TSH 0.00 L (0.34-5.60) mcIU/mL Thyroxine (T4) 19.96 H (6.09-12.23) mcg/mL Total T3 Pending Cortisol Pending 10/16/17 10/16/17 Range/Units 16:04 16:04 WBC (3.5-10.8) 10^3/ul RBC (4.0-5.4) 10^6/ul Hgb (14.0-18.0) g/dl Hct (42-52) % MCV (80-94) fL MCH (27-31) pg MCHC (31-36) g/dl RDW (10.5-15) % Plt Count (150-450) 10^3/ul MPV (7.4-10.4) um3 Neut % (Auto) (38-83) % Lymph % (Auto) (25-47) % [place] % (Auto) (0-7) % Eos % (Auto) (0-6) % Baso % (Auto) (0-2) % Absolute Neuts (auto) (1.5-7.7) 10^3/ul Absolute Lymphs (auto) (1.0-4.8) 10^3/ul Absolute Monos (auto) (0-0.8) 10^3/ul Absolute Eos (auto) (0-0.6) 10^3/ul Absolute Basos (auto) (0-0.2) 10^3/ul Absolute Nucleated RBC 10^3/ul Nucleated RBC % INR (Anticoag Therapy) (0.77-1.02) APTT (26.0-36.3) seconds D-Dimer, Quantitative (Less Than 230) ng/mL Sodium (139-145) mmol/L Potassium (3.5-5.0) mmol/L Chloride (101-111) mmol/L Carbon Dioxide (22-32) mmol/L Anion Gap (2-11) mmol/L BUN (6-24) mg/dL Creatinine (0.67-1.17) mg/dL Est GFR ( Amer) (>60) Est GFR (Non-Af Amer) (>60) BUN/Creatinine Ratio (8-20) Glucose (70-100) mg/dL Lactic Acid 1.0 (0.5-2.0) mmol/L Calcium (8.6-10.3) mg/dL Magnesium (1.9-2.7) mg/dL Total Bilirubin (0.2-1.0) mg/dL AST (13-39) U/L ALT (7-52) U/L Alkaline Phosphatase (34-104) U/L Total Creatine Kinase (10-223) U/L CK-MB (CK-2) (0.6-6.3) ng/mL Troponin I (<0.04) ng/mL B-Natriuretic Peptide 560 H ( - 100) pg/mL Total Protein (6.4-8.9) g/dL Albumin (3.2-5.2) g/dL Globulin (2-4) g/dL Albumin/Globulin Ratio (1-3) TSH (0.34-5.60) mcIU/mL Thyroxine (T4) (6.09-12.23) mcg/mL Total T3 Cortisol Microbiology and Other Data: Microbiology 10/16/17 20:14 Nasal Screen MRSA (PCR)([facility]) - Final Nasal Mrsa Not Detected Assess/Plan/Problems-Billing Assessment:
--- NOTE | 2017-10-20 14:20 | PN ---
Subjective Date of Service: 10/20/17 Interval History: Pt feels well, wants to go home. Still has some epigastric discomfort Objective Active Medications: Carvedilol (Coreg Tab*) 12.5 mg PO BID [facility] Last Admin: 10/20/17 08:44 Dose: 12.5 mg Enoxaparin Sodium (Lovenox(*)) 120 mg SUBCUT Q12H [facility] Last Admin: 10/20/17 10:52 Dose: 120 mg Heparin Sodium (Porcine) (Heparin Flush Picc/Ml/Cvc(*)) 1 - 3 ml FLUSH 0600, 1800 [facility] PRN Reason: Protocol Last Admin: 10/20/17 07:18 Dose: 3 ml Losartan Potassium (Cozaar Tab*) 25 mg PO DAILY [facility] Last Admin: 10/20/17 10:44 Dose: 25 mg Magnesium Hydroxide (Milk Of Magnesia Liq*) 30 ml PO Q4H PRN PRN Reason: DYSPEPSIA Metoclopramide HCl (Reglan Tab*) 5 mg PO Q6H PRN PRN Reason: DYSPEPSIA Morphine Sulfate (Morphine Vial*) 4 mg IV Q2H PRN PRN Reason: PAIN Last Admin: 10/19/17 22:37 Dose: 4 mg Multivitamins/Minerals (Theragran/Minerals Tab*) 1 tab PO DAILY [facility] Last Admin: 10/20/17 08:44 Dose: 1 tab Omeprazole (Prilosec Cap*) 40 mg PO BID [facility] Last Admin: 10/20/17 07:18 Dose: 40 mg Ondansetron HCl (Zofran 40 Mg Vial*) 4 mg IV Q6H PRN PRN Reason: NAUSEA Last Admin: 10/17/17 12:24 Dose: 4 mg Prednisone (Deltasone Tab*) 20 mg PO DAILY [facility] Last Admin: 10/20/17 08:44 Dose: 20 mg Propylthiouracil (Ptu Tab*) 100 mg PO Q8H [facility] Last Admin: 10/20/17 07:17 Dose: 100 mg Zolpidem Tartrate (Ambien Tab*) 10 mg PO BEDTIME PRN PRN Reason: INSOMNIA Last Admin: 10/19/17 20:41 Dose: 10 mg Vital Signs - 8 hr 10/20/17 10/20/17 10/20/17 07:16 08:00 11:10 Temperature 97.4 F Pulse Rate 65 Respiratory 16 16 16 Rate Blood Pressure 127/82 (mmHg) O2 Sat by Pulse 96 Oximetry 10/20/17 12:08 Temperature 97.9 F Pulse Rate 70 Respiratory 16 Rate Blood Pressure 121/79 (mmHg) O2 Sat by Pulse 94 Oximetry Oxygen Devices in Use Now: None Appearance: 31 yo obese M in nAD, AAOx3 Eyes: No Scleral Icterus, PERRLA Ears/Nose/Mouth/Throat: NL Teeth, Lips, Gums, Mucous Membranes Moist Neck: NL Appearance and Movements; NL JVP, Trachea Midline Respiratory: Symmetrical Chest Expansion and Respiratory Effort, Clear to Auscultation Cardiovascular: NL Sounds; No Murmurs; No JVD, RRR Abdominal: NL Sounds; No Tenderness; No Distention, No Hepatosplenomegaly Lymphatic: No Cervical Adenopathy Extremities: No Clubbing, Cyanosis, - - +1 nonpitting pretibial edema Skin: No Rash or Ulcers, No Nodules or Sclerosis Neurological: Alert and Oriented x 3, NL Muscle Strength and Tone Result Diagrams: 10/18/17 05:25 10/19/17 05:18 Additional Lab and Data: Lab Results 10/16/17 10/16/17 10/16/17 Range/Units 16:04 16:04 16:04 WBC 8.4 (3.5-10.8) 10^3/ul RBC 5.18 (4.0-5.4) 10^6/ul Hgb 13.8 L (14.0-18.0) g/dl Hct 41 L (42-52) % MCV 80 (80-94) fL MCH 27 (27-31) pg MCHC 34 (31-36) g/dl RDW 15 (10.5-15) % Plt Count 299 (150-450) 10^3/ul MPV 7.8 (7.4-10.4) um3 Neut % (Auto) 55.2 (38-83) % Lymph % (Auto) 31.3 (25-47) % Charlotte % (Auto) 11.3 H (0-7) % Eos % (Auto) 1.3 (0-6) % Baso % (Auto) 0.9 (0-2) % Absolute Neuts (auto) 4.6 (1.5-7.7) 10^3/ul Absolute Lymphs (auto) 2.6 (1.0-4.8) 10^3/ul Absolute Monos (auto) 0.9 H (0-0.8) 10^3/ul Absolute Eos (auto) 0.1 (0-0.6) 10^3/ul Absolute Basos (auto) 0.1 (0-0.2) 10^3/ul Absolute Nucleated RBC 0 10^3/ul Nucleated RBC % 0.1 INR (Anticoag Therapy) 1.40 H (0.77-1.02) APTT 34.2 (26.0-36.3) seconds D-Dimer, Quantitative 377 H (Less Than 230) ng/mL Sodium 141 (139-145) mmol/L Potassium 3.7 (3.5-5.0) mmol/L Chloride 109 (101-111) mmol/L Carbon Dioxide 21 L (22-32) mmol/L Anion Gap 11 (2-11) mmol/L BUN 11 (6-24) mg/dL Creatinine 0.51 L (0.67-1.17) mg/dL Est GFR ( Amer) 242.2 (>60) Est GFR (Non-Af Amer) 188.3 (>60) BUN/Creatinine Ratio 21.6 H (8-20) Glucose 107 H (70-100) mg/dL Lactic Acid (0.5-2.0) mmol/L Calcium 9.0 (8.6-10.3) mg/dL Magnesium 1.7 L (1.9-2.7) mg/dL Total Bilirubin 2.30 H (0.2-1.0) mg/dL AST 49 H (13-39) U/L ALT 48 (7-52) U/L Alkaline Phosphatase 134 H (34-104) U/L Total Creatine Kinase 43 (10-223) U/L CK-MB (CK-2) 1.8 (0.6-6.3) ng/mL Troponin I 0.03 (<0.04) ng/mL B-Natriuretic Peptide ( - 100) pg/mL Total Protein 6.6 (6.4-8.9) g/dL Albumin 3.8 (3.2-5.2) g/dL Globulin 2.8 (2-4) g/dL Albumin/Globulin Ratio 1.4 (1-3) TSH 0.00 L (0.34-5.60) mcIU/mL Thyroxine (T4) 19.96 H (6.09-12.23) mcg/mL Total T3 Pending Cortisol Pending 10/16/17 10/16/17 Range/Units 16:04 16:04 WBC (3.5-10.8) 10^3/ul RBC (4.0-5.4) 10^6/ul Hgb (14.0-18.0) g/dl Hct (42-52) % MCV (80-94) fL MCH (27-31) pg MCHC (31-36) g/dl RDW (10.5-15) % Plt Count (150-450) 10^3/ul MPV (7.4-10.4) um3 Neut % (Auto) (38-83) % Lymph % (Auto) (25-47) % Charlotte % (Auto) (0-7) % Eos % (Auto) (0-6) % Baso % (Auto) (0-2) % Absolute Neuts (auto) (1.5-7.7) 10^3/ul Absolute Lymphs (auto) (1.0-4.8) 10^3/ul Absolute Monos (auto) (0-0.8) 10^3/ul Absolute Eos (auto) (0-0.6) 10^3/ul Absolute Basos (auto) (0-0.2) 10^3/ul Absolute Nucleated RBC 10^3/ul Nucleated RBC % INR (Anticoag Therapy) (0.77-1.02) APTT (26.0-36.3) seconds D-Dimer, Quantitative (Less Than 230) ng/mL Sodium (139-145) mmol/L Potassium (3.5-5.0) mmol/L Chloride (101-111) mmol/L Carbon Dioxide (22-32) mmol/L Anion Gap (2-11) mmol/L BUN (6-24) mg/dL Creatinine (0.67-1.17) mg/dL Est GFR ( Amer) (>60) Est GFR (Non-Af Amer) (>60) BUN/Creatinine Ratio (8-20) Glucose (70-100) mg/dL Lactic Acid 1.0 (0.5-2.0) mmol/L Calcium (8.6-10.3) mg/dL Magnesium (1.9-2.7) mg/dL Total Bilirubin (0.2-1.0) mg/dL AST (13-39) U/L ALT (7-52) U/L Alkaline Phosphatase (34-104) U/L Total Creatine Kinase (10-223) U/L CK-MB (CK-2) (0.6-6.3) ng/mL Troponin I (<0.04) ng/mL B-Natriuretic Peptide 560 H ( - 100) pg/mL Total Protein (6.4-8.9) g/dL Albumin (3.2-5.2) g/dL Globulin (2-4) g/dL Albumin/Globulin Ratio (1-3) TSH (0.34-5.60) mcIU/mL Thyroxine (T4) (6.09-12.23) mcg/mL Total T3 Cortisol Microbiology and Other Data: Microbiology 10/16/17 20:14 Nasal Screen MRSA (PCR)(ITZEL) - Final Nasal Mrsa Not Detected Assess/Plan/Problems-Billing Assessment: Brant Pearce is a 31 year old man admitted with new onset severe biventricular heart failure in the setting of several months of rapid atrial flutter and thyrotoxicosis. Ruled out for ACS. S/p MARCO/cardioversion 10/17/2017 and symptomatically improved with scientologist of sinus rhythm and medical management. Pt had R thoracentesis in ICU with approx 50 ml of blood tinged fluid removed by Dr. Bailey. At admission: CTA of his chest showing no evidence of pulmonary embolus, moderate degree of right pleural effusion with vascular congestion, moderate degree of mediastinal and hilar adenopathy (up to 3 cm) of uncertain etiology. Echo 10/18/2017: Severe biventricular cardiomyopathy with dilated atria and no significant valvular abnormalities noted MARCO 10/19/2017 limited study : No LA/RACHEL thrombus - Patient Problems (1) Atrial flutter Comment: Cont in NSR after cardioversion. Continue coreg to 12.5 mg po bid Added losartan 25 mg po daily per cardiology on 10/20/17 (ordered) Continue therapeutic lovenox. If no procedural plans can change to xarelto 20 mg po daily x 1 month (2) Cardiac LV ejection fraction <20% Comment: due to tachy related cardiomyopathy limited f/u Echo in AM (3) Cholelithiasis Comment: cholecystitis noted on intial liver US likley related to GB wall edema due to CHF Will get another GB US. LFT's normalizing (4) Chronic lymphocytic thyroiditis Comment: cont PTU and prednisone as per Dr. Alejandra (5) Epigastric pain Comment: improving. Get gallbladder US to r/o pathology (6) Hilar lymphadenopathy Comment: Dr. Ch consulted (7) High output congestive heart failure Comment: Acute, treated with IV Lasix on 10/19/17. Today appears euvolemic (8) DVT prophylaxis Comment: lovenox Status and Disposition: inpatient
--- NOTE | 2017-10-20 17:11 | RAD ---
HISTORY: Follow-up gallbladder pathology COMPARISONS: Similar ultrasound October 17, 2017 that demonstrates cholelithiasis. TECHNIQUE: Multiple transverse and longitudinal ultrasound images were obtained of the right upper quadrant. FINDINGS: A pleural effusion is partially visualized. LIVER: The mildly enlarged liver exhibits homogenous increased echogenicity. Liver measures up to 20.3 cm in greatest cephalocaudal dimension. Normal hepatic and portal venous blood flow is duplicated with color flow imaging. There is no gross intrahepatic biliary duct dilatation. GALLBLADDER AND EXTRAHEPATIC BILIARY DUCT: The gallbladder is normal in appearance without intraluminal stones or other soft tissue masses. There is no pericholecystic fluid or gallbladder wall thickening. The common bile duct measures a maximum diameter of 4 mm. PANCREAS: The portions of the pancreas not obscured by bowel gas are normal in appearance. RIGHT KIDNEY: The right kidney is normal in size, morphology and echogenicity. AORTA AND IVC: The visualized portions are normal in appearance and not pathologically dilated. IMPRESSION: 1. SONOGRAPHIC FINDINGS ARE CONSISTENT WITH CHOLELITHIASIS WITHOUT DEFINITE INFLAMMATORY CHANGE OF THE GALLBLADDER OR ACUTE BILIARY OBSTRUCTION. 2. A RIGHT LUNG BASE PLEURAL EFFUSION IS PARTIALLY VISUALIZED.
[2017-10-20] MEDS: Zolpidem TAB* 10 MG PO PRN (20:36)
[2017-10-21] MEDS: Propylthiouracil TAB* 50 MG PO SCH (05:45)
[2017-10-21] MEDS: Omeprazole CAP* 20 MG PO SCH (05:46)
[2017-10-21 06:11] LABS: ABS Basophils 0 10^3/ul (0-0.2); ABS Eosinophils 0.1 10^3/ul (0-0.6); ABS Lymphocytes 4.5 10^3/ul (1.0-4.8); ABS Monocytes 1.1 10^3/ul (0-0.8); ABS Neutrophils 3.9 10^3/ul (1.5-7.7); ABS Nucleated RBC 0 10^3/ul; Eosinophil % 1.1 % (0-6); Hematocrit 40 % (42-52); Lymphocyte % 46.5 % (25-47); Mean Corpuscular HGB Conc 33 g/dl (31-36); Mean Corpuscular Hemoglobin 26 pg (27-31); Mean Corpuscular Volume 80 fL (80-94); Mean Platelet Volume 8.3 um3 (7.4-10.4); Nucleated Red Blood Cells % 0.2; Platelet Count 253 10^3/ul (150-450); Red Blood Count 4.95 10^6/ul (4.0-5.4); Red Cell Distribution Width 15 % (10.5-15); White Blood Count 9.7 10^3/ul (3.5-10.8)
[2017-10-21 06:25] LABS: EGFR Non-African American 172.6 (>60)
--- NOTE | 2017-10-21 08:27 | PN ---
Subjective - Subjective Reason for Note: Discharge Note History: He is feeling much better. No chest pain, dyspnea or palpitations. No orthopnea /paroxysmal nocturnal dyspnea. Active Problems: Active Problems Atrial flutter (Acute) I48.92 Cont in NSR after cardioversion. Continue coreg to 12.5 mg po bid Added losartan 25 mg po daily per cardiology on 10/20/17 (ordered) Continue therapeutic lovenox. If no procedural plans can change to xarelto 20 mg po daily x 1 month Cardiac LV ejection fraction <20% (Acute) R94.30 due to tachy related cardiomyopathy limited f/u Echo in AM Cholelithiasis (Acute) cholecystitis noted on intial liver US likley related to GB wall edema due to CHF Will get another GB US. LFT's normalizing Chronic lymphocytic thyroiditis (Acute) E06.3 cont PTU and prednisone as per Dr. Alejandra DVT prophylaxis (Acute) [id number] lovenox Elevated alkaline phosphatase level (Acute) Epigastric pain (Acute) R10.13 improving. Get gallbladder US to r/o pathology Graves disease (Acute) E05.00 Hilar lymphadenopathy (Acute) R59.0 Dr. 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 Thickening of wall of gallbladder (Acute) K82.8 Thyroid crisis or storm (Acute) E05.91 Current Medications: Current Medications Carvedilol (Coreg Tab*) 12.5 mg PO BID [facility] Last Admin: 10/20/17 20:36 Dose: 12.5 mg Enoxaparin Sodium (Lovenox(*)) 120 mg SUBCUT Q12H [facility] Last Admin: 10/20/17 22:27 Dose: 120 mg Heparin Sodium (Porcine) (Heparin Flush Picc/Ml/Cvc(*)) 1 - 3 ml FLUSH 0600, 1800 AJAY PRN Reason: Protocol Last Admin: 10/21/17 05:48 Dose: 3 ml Losartan Potassium (Cozaar Tab*) 25 mg PO DAILY [facility] Last Admin: 10/20/17 10:44 Dose: 25 mg Magnesium Hydroxide (Milk Of Magnesia Liq*) 30 ml PO Q4H PRN PRN Reason: DYSPEPSIA Metoclopramide HCl (Reglan Tab*) 5 mg PO Q6H PRN PRN Reason: DYSPEPSIA Morphine Sulfate (Morphine Vial*) 4 mg IV Q2H PRN PRN Reason: PAIN Last Admin: 10/19/17 22:37 Dose: 4 mg Multivitamins/Minerals (Theragran/Minerals Tab*) 1 tab PO DAILY [facility] Last Admin: 10/20/17 08:44 Dose: 1 tab Omeprazole (Prilosec Cap*) 40 mg PO BID [facility] Last Admin: 10/21/17 05:46 Dose: 40 mg Ondansetron HCl (Zofran 40 Mg Vial*) 4 mg IV Q6H PRN PRN Reason: NAUSEA Last Admin: 10/17/17 12:24 Dose: 4 mg Prednisone (Deltasone Tab*) 20 mg PO DAILY [facility] Last Admin: 10/20/17 08:44 Dose: 20 mg Propylthiouracil (Ptu Tab*) 100 mg PO Q8H [facility] Last Admin: 10/21/17 05:45 Dose: 100 mg Zolpidem Tartrate (Ambien Tab*) 10 mg PO BEDTIME PRN PRN Reason: INSOMNIA Last Admin: 10/20/17 20:36 Dose: 10 mg Home Medications: Home Medications Medication Instructions Recorded Confirmed Type Multivitamins/Minerals TAB* 1 tab PO DAILY 10/16/17 10/16/17 History [Theragran/minerals TAB*] Carvedilol TAB* [Coreg TAB*] 12.5 mg PO BID #120 tab 10/21/17 Rx Losartan TAB* [Cozaar TAB*] 25 mg PO DAILY #30 tab 10/21/17 Rx Methimazole TAB* [Tapazole TAB*] 30 mg PO DAILY #90 tab 10/21/17 Rx Rivaroxaban TAB(*) [Xarelto 20 mg] 20 mg PO DAILY #30 tab 10/21/17 Rx predniSONE [Prednisone 5 MG TAB] 10 mg PO DAILY #30 tablet 10/21/17 Rx Allergies: Allergies Allergy/AdvReac Type Severity Reaction Status Date / Time No Known Allergies Allergy Verified 10/16/17 16:05 - Social History Living Situation: Currently living at his mother's house 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 Objective - Vital Signs Vital Signs: Vital Signs 10/20/17 10/20/17 10/20/17 11:10 12:08 15:19 Temperature 97.9 F Pulse Rate 70 54 Respiratory 16 16 22 Rate Blood Pressure 121/79 114/70 (mmHg) O2 Sat by Pulse 94 98 Oximetry 10/20/17 10/20/17 10/20/17 19:25 19:29 20:00 Temperature 97.2 F Pulse Rate 54 Respiratory 20 20 Rate Blood Pressure 124/82 (mmHg) O2 Sat by Pulse 97 Oximetry 10/20/17 10/21/17 23:23 03:26 Temperature 97.2 F 98.2 F Pulse Rate 69 66 Respiratory 18 20 Rate Blood Pressure 118/62 132/77 (mmHg) O2 Sat by Pulse 95 93 Oximetry - Intake and Output Intake and Output: Intake & Output 10/18/17 10/19/17 10/20/17 10/21/17 11:59 11:59 11:59 11:59 Intake Total 1895 2160 600 720 Output Total 2240 2590 750 100 Balance -345 -430 -150 620 Weight 270 lb 4.587 oz 263 lb 0.183 oz 266 lb 4.8 oz 266 lb 4.8 oz Intake: IV Fluids 345 NS (0.9%) 345 Oral 1550 2160 600 720 Output: Urine 2240 2590 750 100 Other: # Bowel Movements 1 0 Estimated Stool Amount Large ADLs: Meal Record Start: 10/16/17 19: 26 Freq: 09,13,18 Status: Inactive Protocol: Created 10/16/17 19:26 System (Rec: 10/16/17 19:26 System ICU-M22) Document 10/17/17 09:00 [id number] (Rec: 10/17/17 13:06 BCW3969 ICU-C16) Document 10/17/17 13:00 YLP2705 (Rec: 10/17/17 13:16 ODZ4317 ICU-C16) Document 10/17/17 18:00 DVM3121 (Rec: 10/17/17 18:28 TCL2954 ICU-C18) Document 10/18/17 10:30 SXH0216 (Rec: 10/18/17 14:10 KZT6154 ICU-C10) Document 10/18/17 13:00 MRU5840 (Rec: 10/18/17 18:09 YWK8486 ICU-C10) Document 10/18/17 18:00 JQR9357 (Rec: 10/18/17 18:09 OUV1522 ICU-C10) Document 10/19/17 09:00 ROS4169 (Rec: 10/19/17 10:14 GIH5588 ICU-M26) ADLs: Meal Record Start: 10/19/17 12: 05 Freq: DAILY@0900,1400,1800 Status: Inactive Protocol: Created 10/19/17 12:05 PQZ1414 (Rec: 10/19/17 12:05 IVU6179 TELE-C02) ADLs: Meal Record Start: 10/19/17 13: 31 Freq: DAILY@0900,1400,1800 Status: Active Protocol: Created 10/19/17 13:31 NLC8265 (Rec: 10/19/17 13:31 SZN5749 MED-M21) Document 10/19/17 14:00 XRF6715 (Rec: 10/19/17 14:13 ZBA6452 TELE-C05) Document 10/20/17 09:00 OUV3661 (Rec: 10/20/17 10:09 FDX9295 TELE-C09) Document 10/20/17 14:00 BRN3737 (Rec: 10/20/17 14:05 OZC9570 TELE-C09) Document 10/20/17 18:01 TRF3485 (Rec: 10/20/17 18:01 DYT5737 TELE-C05) Intake and Output Start: 10/16/17 19: 26 Freq: Q1HR Status: Inactive Protocol: Created 10/16/17 19:26 System (Rec: 10/16/17 19:26 System ICU-M22) Document 10/16/17 20:00 NYH8271 (Rec: 10/16/17 21:45 FNE9034 ICU-C16) Document 10/16/17 21:00 FRZ5077 (Rec: 10/16/17 21:46 CZP1311 ICU-C16) Document 10/16/17 22:00 VHW3584 (Rec: 10/16/17 22:03 DXW8055 ICU-C16) Document 10/16/17 23:00 OZD1912 (Rec: 10/16/17 23:04 MYX9189 ICU-C16) Document 10/16/17 23:45 VOW9173 (Rec: 10/16/17 23:50 JBT1921 ICU-C16) Document 10/17/17 01:00 IDP5395 (Rec: 10/17/17 01:53 LSX7594 ICU-C16) Document 10/17/17 02:00 VNB9054 (Rec: 10/17/17 02:45 RAE1924 ICU-C16) Document 10/17/17 03:00 RKJ6261 (Rec: 10/17/17 03:53 MYB9949 ICU-C16) Document 10/17/17 03:54 ZMX8608 (Rec: 10/17/17 04:05 SOL7208 ICU-C16) Document 10/17/17 05:00 FYK7353 (Rec: 10/17/17 05:01 LFQ9073 ICU-C16) Document 10/17/17 06:00 PUP4071 (Rec: 10/17/17 06:16 VQH4069 ICU-C16) Document 10/17/17 07:00 FGO8379 (Rec: 10/17/17 08:58 GOR0785 ICU-C16) Document 10/17/17 08:00 ITX8117 (Rec: 10/17/17 13:06 IQJ3288 ICU-C16) Document 10/17/17 09:00 XLA7870 (Rec: 10/17/17 13:07 EXX5386 ICU-C16) Document 10/17/17 10:00 KPX1011 (Rec: 10/17/17 13:08 FJY3263 ICU-C16) Document 10/17/17 11:00 NYU7116 (Rec: 10/17/17 13:09 GEV1942 ICU-C16) Document 10/17/17 12:00 MPF5976 (Rec: 10/17/17 13:15 SEC3486 ICU-C16) Document 10/17/17 13:00 YZT0347 (Rec: 10/17/17 13:16 FOB5396 ICU-C16) Document 10/17/17 14:00 ACM2385 (Rec: 10/17/17 20:15 QDK7124 ICU-C10) Document 10/17/17 15:00 UAO7413 (Rec: 10/17/17 20:15 RDL4503 ICU-C10) Document 10/17/17 16:00 CDM0022 (Rec: 10/17/17 20:15 UDA1219 ICU-C10) Document 10/17/17 17:00 KAF8586 (Rec: 10/17/17 20:15 IUM1956 ICU-C10) Document 10/17/17 18:00 SIQ3723 (Rec: 10/17/17 20:15 NYB2102 ICU-C10) Document 10/17/17 19:00 TSW0532 (Rec: 10/17/17 21:40 CID1910 ICU-C14) Document 10/17/17 20:00 VVH2325 (Rec: 10/17/17 21:41 XSV9903 ICU-C14) Document 10/17/17 21:00 FAE7491 (Rec: 10/17/17 21:42 IFC5983 ICU-C14) Document 10/17/17 22:00 HRD2699 (Rec: 10/18/17 00:08 GDK6664 ICU-C15) Document 10/17/17 23:00 TRT3838 (Rec: 10/18/17 00:09 NXU3834 ICU-C15) Document 10/18/17 00:00 SPQ4555 (Rec: 10/18/17 00:09 UCX7218 ICU-C15) Document 10/18/17 01:00 PWK6099 (Rec: 10/18/17 01:50 RWA5486 ICU-C15) Document 10/18/17 02:00 AEL4097 (Rec: 10/18/17 02:15 TRF2237 ICU-C15) Document 10/18/17 03:00 UMS1543 (Rec: 10/18/17 03:31 HDU5156 ICU-C15) Document 10/18/17 04:00 QKV0869 (Rec: 10/18/17 06:05 WIJ1033 ICU-C15) Document 10/18/17 05:00 WKC2888 (Rec: 10/18/17 06:05 SFZ2847 ICU-C15) Document 10/18/17 06:00 FHM0189 (Rec: 10/18/17 06:05 WJT7117 ICU-C15) Document 10/18/17 07:00 DBD5837 (Rec: 10/18/17 07:08 SSW9568 ICU-C15) Document 10/18/17 09:00 LNR0494 (Rec: 10/18/17 15:32 XZN0206 ICU-C10) Document 10/18/17 11:00 YEI6510 (Rec: 10/18/17 15:32 LFW8251 ICU-C10) Document 10/18/17 14:00 CJC2984 (Rec: 10/18/17 15:32 SUH9642 ICU-C10) Document 10/18/17 17:00 BYC4666 (Rec: 10/18/17 17:01 PSA8314 ICU-C14) Document 10/18/17 18:00 IYJ4734 (Rec: 10/18/17 18:15 UZH9314 ICU-C10) Document 10/18/17 19:00 NZJ1713 (Rec: 10/18/17 20:48 UYS9862 ICU-C16) Document 10/18/17 20:00 DFS6435 (Rec: 10/18/17 21:18 WAL7120 ICU-C16) Document 10/18/17 21:00 CDI4493 (Rec: 10/18/17 21:18 UZU3173 ICU-C16) Document 10/18/17 21:35 QVM8600 (Rec: 10/18/17 21:43 ECP5040 ICU-M20) Document 10/18/17 23:00 TJK3743 (Rec: 10/18/17 23:14 WOX8980 ICU-C16) Document 10/19/17 00:00 XTJ0082 (Rec: 10/19/17 00:51 CPB7331 ICU-C16) Document 10/19/17 01:00 DHQ1056 (Rec: 10/19/17 01:10 JSK3998 ICU-C16) Document 10/19/17 02:00 DPH3898 (Rec: 10/19/17 02:29 BZG9936 ICU-C16) Document 10/19/17 03:00 UAS1704 (Rec: 10/19/17 03:14 TFW8831 ICU-C16) Document 10/19/17 04:00 UQO4505 (Rec: 10/19/17 04:41 PNK8093 ICU-C16) Document 10/19/17 05:00 CJJ8351 (Rec: 10/19/17 05:21 ZQO9771 ICU-C16) Document 10/19/17 05:38 YSU5626 (Rec: 10/19/17 05:38 IQW6554 ICU-M20) Document 10/19/17 07:00 HKX1822 (Rec: 10/19/17 07:07 UKD9327 ICU-C16) Document 10/19/17 09:00 NTL3006 (Rec: 10/19/17 11:22 PJC6408 ICU-C15) Document 10/19/17 11:59 SZX5431 (Rec: 10/19/17 11:59 BMJ0601 ICU-C25) Intake and Output Start: 10/19/17 12: 05 Freq: DAILY@0600,1400,2200 Status: Inactive Protocol: Created 10/19/17 12:05 AIM6752 (Rec: 10/19/17 12:05 PUW3914 TELE-C02) Intake and Output Start: 10/19/17 13: 31 Freq: DAILY@0600,1400,2200 Status: Active Protocol: Created 10/19/17 13:31 ZNX9133 (Rec: 10/19/17 13:31 VQT7610 MED-M21) Document 10/19/17 14:00 NCP3428 (Rec: 10/19/17 14:19 QGY4276 TELE-C05) Document 10/19/17 22:00 IVY0390 (Rec: 10/19/17 22:18 FER5186 TELE-C34) Document 10/20/17 06:00 IOR0265 (Rec: 10/20/17 06:01 IGP5014 TELE-C34) Document 10/20/17 14:00 UQW3889 (Rec: 10/20/17 14:05 IAP1934 TELE-C09) Document 10/20/17 21:37 BUY5355 (Rec: 10/20/17 21:38 HVQ6778 TELE-C03) Document 10/21/17 06:00 CBJ7449 (Rec: 10/21/17 06:20 QTY0156 TELE-C34) - Physical Exam General: No Cyanosis, No Anemia, No Jaundice, No Clubbing -: No Tremor, Yes Goiter, No Thyroid Nodule, Yes Thyroid Bruit, No Thyroid Tenderness, No Hoarseness, No Cervical adenopathy, No Supraclav. adenopathy, No Proptosis, No Conjunctival Injection, No Lid Lag, No Periorbital Edema, No Dysconjugate Eye Movement Endocrine: Yes Central Obesity, No Acromegaly, No Vitiligo, No Flushing, No Acanthosis nigricans, No Violaceious striae, No Mel Syndrome, No Buccal pigmenatation Lungs and Chest: Yes: Chest Expansion Full, Chest Expansion Symetrica, Percussion Note Resonant, Vessicular Breath Sounds. No: Crackles, Wheezes Heart Rate and Rhythm: Regular JVP: Elevated Additional Cardiovascular: Yes: Normal Heart Sounds. No: Heart Murmur, Pedal Edema Abdominal Exam: Yes: Soft, Bowel Sounds Present. No: Distention, Hepatomegaly, Abdominal Tenderness Results - Results Lab Results: Laboratory Results - last 24 hr 10/21/17 10/21/17 05:55 05:55 WBC 9.7 RBC 4.95 Hgb 13.0 L Hct 40 L MCV 80 MCH 26 L MCHC 33 RDW 15 Plt Count 253 MPV 8.3 Neut % (Auto) 40.8 Lymph % (Auto) 46.5 [place] % (Auto) 11.1 H Eos % (Auto) 1.1 Baso % (Auto) 0.5 Absolute Neuts (auto) 3.9 Absolute Lymphs (auto) 4.5 Absolute Monos (auto) 1.1 H Absolute Eos (auto) 0.1 Absolute Basos (auto) 0 Absolute Nucleated RBC 0 Nucleated RBC % 0.2 Sodium 140 Potassium 4.0 Chloride 106 Carbon Dioxide 28 Anion Gap 6 BUN 18 Creatinine 0.55 L Est GFR ( Amer) 222.0 Est GFR (Non-Af Amer) 172.6 BUN/Creatinine Ratio 32.7 H Glucose 82 Calcium 8.9 Radiology Results: Patient Name: BRANT MOY Medical Record#: [id number] Ordering Physician: Jenny Delaney MD Acct.#: [id number] : 1985 Age: 31 Sex: M Location: [address] [place] [address]/TELEMETRY Exam Date: 10/20/17829 ADM Status: ADM IN Order Information: US GALL BLADDER Accession Number: [id number] CPT: 15046 HISTORY: Follow-up gallbladder pathology COMPARISONS: Similar ultrasound October 17, 2017 that demonstrates cholelithiasis. TECHNIQUE: Multiple transverse and longitudinal ultrasound images were obtained of the right upper quadrant. FINDINGS: A pleural effusion is partially visualized. LIVER: The mildly enlarged liver exhibits homogenous increased echogenicity. Liver measures up to 20.3 cm in greatest cephalocaudal dimension. Normal hepatic and portal venous blood flow is duplicated with color flow imaging. There is no gross intrahepatic biliary duct dilatation. GALLBLADDER AND EXTRAHEPATIC BILIARY DUCT: The gallbladder is normal in appearance without intraluminal stones or other soft tissue masses. There is no pericholecystic fluid or gallbladder wall thickening. The common bile duct measures a maximum diameter of 4 mm. PANCREAS: The portions of the pancreas not obscured by bowel gas are normal in appearance. RIGHT KIDNEY: The right kidney is normal in size, morphology and echogenicity. AORTA AND IVC: The visualized portions are normal in appearance and not pathologically dilated. IMPRESSION: 1. SONOGRAPHIC FINDINGS ARE CONSISTENT WITH CHOLELITHIASIS WITHOUT DEFINITE INFLAMMATORY CHANGE OF THE GALLBLADDER OR ACUTE BILIARY OBSTRUCTION. 2. A RIGHT LUNG BASE PLEURAL EFFUSION IS PARTIALLY VISUALIZED. <Electronically signed by Bakari Rolle MD in [place]> 10/20/171706 Dictated By: Bakari Rolle MD Dictated Date/Time: 10/20/171706 Transcribed Date/Time: 10/20/17 1636 Copy to: CC:Donald Alejandra MD; Brant Elizalde DO; Dante Prieto MD; Yelena Ch MD; Jenny Delaney MD; No Primary Care Phys,NOPCP Imaging - [facility] Imaging [facility] Care [facility] [address] 1 of Assessment - Problem List Assessment: Patient Problems Atrial flutter (Acute) Cardiac LV ejection fraction <20% (Acute) Cholelithiasis (Acute) Chronic lymphocytic thyroiditis (Acute) DVT prophylaxis (Acute) Elevated alkaline phosphatase level (Acute) Epigastric pain (Acute) Graves disease (Acute) Hilar lymphadenopathy (Acute) Insomnia (Acute) Mediastinal lymphadenopathy (Acute) Nausea and vomiting (Acute) Obstructive hyperbilirubinemia (Acute) Pleural cavity effusion (Acute) Pretibial myxedema (Acute) Thickening of wall of gallbladder (Acute) Thyroid crisis or storm (Acute) Plan: He is symptomatically improved. He remains in sinus rhythm. I have educated him on the use of his new medications. He will follow up in my office in [address] Brant Elizalde as an outpatient See dictated discharge note.
[2017-10-21] MEDS: Carvedilol TAB* 6.25 MG PO SCH (08:40)
[2017-10-21] MEDS: Multivitamins/Minerals TAB PO SCH (08:40)
[2017-10-21] MEDS: Losartan TAB* 25 MG PO SCH (08:41)
[2017-10-21] MEDS: predniSONE TAB* 20 MG PO SCH (08:41)
[2017-10-21 08:45] VITALS: BP 124/78
[2017-10-21] MEDS ORDERED: Rivaroxaban TAB(*) 20 MG TAB PO SCH (09:00)
--- NOTE | 2017-10-21 09:19 | ECHO ---
Patient: JORI MOY [facility] Rec#: [id number] : 1985 Date: 10/21/2017 Age: 31y Height: 170 cm / 66.9 in Weight: 119.3 kg / 262.9 lbs Sex: M BSA: 2.27 Room#: [facility] Admit Date#: 10/16/2017 Type: Inpatient Referring: Jori Elizalde DO Reading: Jori Elizalde DO Clinical Aide: Joy Marks RDCS CC: Kar Quiroga MD Transthoracic Echocardiogram Indication: Cardiomyopathy, s/p cardioversion. BP: 132/77 HR: 66 Rhythm: NSR Findings History: Smoker, cardiomyopathy, a flutter. This is a LIMITED echo to reassess left ventricular ejection fraction s/p cardioverison 10/17/17. Technical Comments: The study quality is fair. Completed at 0850. Left Ventricle: The left ventricular chamber size is mildly dilated. There is no left ventricular hypertrophy. There is global hypokinesis of the left ventricle with minor regional variation. There is severely decreased left ventricular systolic function.Visually LVEF appears to be 25%, calculated by modified hogan is 33% Right Ventricle: The right ventricle is mild to moderately dilated. The right ventricular global systolic function is moderately reduced. Pericardium: There is no significant pericardial effusion. Conclusions Limited study Compared to prior echocardiogram from 10/17/2017, patient is now in sinus rhythm instead of atrial flutter and there has been improvement in patients biventricular function. Measurements Name Value Normal Range LVIDd (2D) 6.27 cm (3.6 - 5.4) LVIDs (2D) 5.25 cm - LVIDd (2D) index 2.76 cm/m2 - LVIDs (2D) index 2.31 cm/m2 - LV FS (2D) 16.27 % (25 - 45) EF Teichholz (2D) 33.48 % -
--- NOTE | 2017-10-21 09:48 | PN ---
Subjective Date of Service: 10/21/17 Interval History: f/u atrial flutter, biventricular cardiomyopathy, thyrotoxicosis No CP, dyspnea, or lightheadedness No arrhythmias Limited echo this AM with beginning of improvement of biventricular function, LVEF 25-30% improved from much less than 20% Medications Active Medications: Carvedilol (Coreg Tab*) 12.5 mg PO BID [facility] Last Admin: 10/21/17 08:40 Dose: 12.5 mg Heparin Sodium (Porcine) (Heparin Flush Picc/Ml/Cvc(*)) 1 - 3 ml FLUSH 0600, 1800 [facility] PRN Reason: Protocol Last Admin: 10/21/17 05:48 Dose: 3 ml Losartan Potassium (Cozaar Tab*) 25 mg PO DAILY [facility] Last Admin: 10/21/17 08:41 Dose: 25 mg Magnesium Hydroxide (Milk Of Magnesia Liq*) 30 ml PO Q4H PRN PRN Reason: DYSPEPSIA Metoclopramide HCl (Reglan Tab*) 5 mg PO Q6H PRN PRN Reason: DYSPEPSIA Morphine Sulfate (Morphine Vial*) 4 mg IV Q2H PRN PRN Reason: PAIN Last Admin: 10/19/17 22:37 Dose: 4 mg Multivitamins/Minerals (Theragran/Minerals Tab*) 1 tab PO DAILY [facility] Last Admin: 10/21/17 08:40 Dose: 1 tab Omeprazole (Prilosec Cap*) 40 mg PO BID [facility] Last Admin: 10/21/17 05:46 Dose: 40 mg Ondansetron HCl (Zofran 40 Mg Vial*) 4 mg IV Q6H PRN PRN Reason: NAUSEA Last Admin: 10/17/17 12:24 Dose: 4 mg Prednisone (Deltasone Tab*) 20 mg PO DAILY [facility] Last Admin: 10/21/17 08:41 Dose: 20 mg Propylthiouracil (Ptu Tab*) 100 mg PO Q8H [facility] Last Admin: 10/21/17 05:45 Dose: 100 mg Rivaroxaban (Xarelto(*)) 20 mg PO DAILY [facility] Zolpidem Tartrate (Ambien Tab*) 10 mg PO BEDTIME PRN PRN Reason: INSOMNIA Last Admin: 10/20/17 20:36 Dose: 10 mg Objective Vital Signs: Temp Pulse Resp BP Pulse Ox 97.7 F 68 16 124/78 97 10/21/17 08:01 10/21/17 08:01 10/21/17 08:01 10/21/17 08:01 10/21/17 08:01 Oxygen Devices in Use Now: None Appearance: obese, not toxic appearing Ears/Nose/Mouth/Throat: Clear Oropharnyx, Mucous Membranes Moist Neck: Trachea Midline, - - uncertain jvp Respiratory: Symmetrical Chest Expansion and Respiratory Effort, Clear to Auscultation, - Cardiovascular: - - RRR, no significant murmur Abdominal: - - obese, nontender Extremities: No Clubbing, Cyanosis, - - legs obese, no edema Skin: No Rash or Ulcers Neurological: Alert and Oriented x 3 Laboratory Results: 10/21/17 05:55 10/21/17 05:55 INR (Anticoag Therapy) 1.40 (0.77-1.02) H 10/18/17 05:25 APTT 34.2 seconds (26.0-36.3) 10/16/17 16:04 Total Bilirubin 1.50 mg/dL (0.2-1.0) H 10/19/17 05:18 Direct Bilirubin 0.70 mg/dL (0.03-0.18) H 10/19/17 05:18 Indirect Bilirubin 0.8 mg/dL (0.3-1.0) 10/19/17 05:18 AST 37 U/L (13-39) 10/19/17 05:18 ALT 44 U/L (7-52) 10/19/17 05:18 Alkaline Phosphatase 104 U/L (34-104) 10/19/17 05:18 CK-MB (CK-2) 1.8 ng/mL (0.6-6.3) 10/16/17 16:04 B-Natriuretic Peptide 335 pg/mL (-100) H 10/18/17 05:25 Total Protein 6.0 g/dL (6.4-8.9) L 10/19/17 05:18 Albumin 3.5 g/dL (3.2-5.2) 10/19/17 05:18 Globulin 2.5 g/dL (2-4) 10/19/17 05:18 Albumin/Globulin Ratio 1.4 (1-3) 10/19/17 05:18 TSH 0.00 mcIU/mL (0.34-5.60) L 10/16/17 16:04 10/16/17 10/16/17 19:43 21:55 Troponin I 0.03 0.02 Diagnostic Imaging: admission: CTA of his chest showing no evidence of pulmonary embolus, moderate degree of right pleural effusion with vascular congestion, moderate degree of mediastinal and hilar adenopathy of uncertain etiology. Echo 10/18/2017: Severe biventricular cardiomyopathy with dilated atria and no significant valvular abnormalities noted MARCO 10/19/2017 limited study with definity: No LA/RACHEL thrombus Limited echo 10/21/2017: Moderate RV dysfunction and LVEF 25-30% (improved) EKG admission: 2:1 rapid atrial flutter EKG post-conversion: NSR, LAE, incomplete RBB Assessment/Plan Brant Pearce is a 31 year old man admitted with new onset severe biventricular heart failure in the setting of several months of rapid atrial flutter and thyrotoxicosis. Ruled out for ACS. S/p MARCO/cardioversion 10/17/2017 and symptomatically improved with mandaeism of sinus rhythm and medical management and beginning of biventricular function improvement on todays limited echo - Continue coreg to 12.5 mg po bid - Continue losartan 25 mg po daily - Continue xarelto 20 mg po x 1 month - Ok to discharge from a cardiac standpoint - Will arrange 2 week f/u with EKG Thank you for allowing me to participate in the cardiovascular care of this patient. Please do not hesitate to contact me with questions or concerns.
--- NOTE | 2017-10-21 11:40 | DS ---
CC: Brant Elizalde DO; Donnell Bailey DO * DISCHARGE SUMMARY: DATE OF ADMISSION: 10/16/17 DATE OF DISCHARGE: 10/21/17 DISCHARGE DIAGNOSES: 1. Atrial flutter. 2. Systolic heart failure. 3. Cardiomyopathy with ejection fraction less than 20%. 4. Thyrotoxicosis secondary to Grave's disease with thyrotoxic emergency. 5. Morbid obesity. 6. Transient hepatitis, gallbladder congestion possible cholecystitis with abdominal pain, nausea and vomiting. 7. Abnormal LFTs, cholelithiasis, thickened gallbladder wall 8. Mediastinal and perihilar lymphadenopathy HISTORY: Juvenal Pearce is a 31-year-old male, his presentation is documented in the history and physical provided by Joy Sylvester NP. Mr. Pearce is a 31-year-old male without a previous significant history, one year of increasing dyspnea. He was unable to get up above a flight of stairs. He had a rapid heart beat in the 140s, abdominal bloating. His legs are swollen. He had shortness of breath lying flat. He lost 25 pounds in 10 months. He felt excessively hot, had difficulty sleeping. He presented to the emergency room with worsening dyspnea. PHYSICAL EXAMINATION: Temperature 97.8, heart rate 137, respirations 19, oxygen saturation 90% on room air, blood pressure 120/95. Cardiovascular system : Tachycardia. No murmurs, rubs. He had edema. Respiratory system: Crackles in bilateral bases. Abdomen: Benign. LABORATORY DATA: Initial evaluation, sodium 141, potassium 3.7, chloride 109, bicarbonate 21, BUN 11, creatinine 0.51, glucose 107, white count 8.4, hemoglobin 13.8, hematocrit 41, platelets 299. Magnesium 1.7, alkaline phosphatase 134. TSH is 0.00, T4 of 19.96, BNP 516, d-dimer is 377, AST of 49, ALT 48, total bilirubin 2.3. EKG: Rate 140. Chest x-ray: Cardiomegaly, mild vascular congestion. CTA: Ruled out PE. Right pleural effusion. Vascular congestion. Moderate degree of mediastinal and hilar adenopathy. INITIAL IMPRESSION: 1. Thyroid storm. 2. Tachycardia. 3. Elevated d-dimer. 4. Pleural effusion. 5. Chest pain. 6. Elevated liver function tests. 7. Mediastinal lymphadenopathy. INVESTIGATIONS DURING THE HOSPITAL STAY: Imaging: Thyroid ultrasound on 10/16/17: Heterogenously enlarged thyroid gland. Liver ultrasound on 10/17/17, cholelithiasis, thickening of the gallbladder wall suggesting the possibility of acute cholecystitis, hepatomegaly, right pleural effusion. He had subsequent chest x-rays on 10/18/17. No significant residual right pleural fluid. No pneumothorax. Mild pulmonary vascular congestion. 10/20/17 gallbladder ultrasound, cholelithiasis, no inflammatory change. Cardiovascular: Transthoracic echocardiogram, 10/16/17, dilated LV, no LVH, severely decreased LV systolic function with ejection fraction less than 20%, left atrium severely dilated right ventricle moderately dilated, right ventricular global systolic function severely reduced, right atrial cavity size severely dilated, no pulmonary hypertension, rapid arrhythmia. 10/17/17 transesophageal echocardiogram prior to DC conversion, conclusions: Severely decreased LV systolic function, the left atrium severely dilated. No thrombus. A 12-lead EKG following DC conversion: Rate 84, ID interval 173, QTc 458, QRS axis -25, partial right bundle branch block. LA enlargement. He had a right thoracocentesis which was diagnostic. It was rather nonspecific. LABORATORY FINDINGS: Cortisol at presentation 14.24. Followup thyroid function test 10/19/17, free T4 of 4.01, free T3 of 4.1, total T3 of 0.75. Liver function tests, these were performed serially. Alkaline phosphatase normalized to 104 on 10/19/17. Total bilirubin came down to 1.5 and direct is 0.7, indirect is 0.8 on 10/19/17. Thyroid peroxidase antibodies 153, pending thyroid stimulating immunoglobulins. Right pleural fluid showed white cell 5, red cells 1645, total cells 50, total protein 2.2, LDH 90. Microbiology: MRSA negative. CONSULTATIONS: Myself on 10/17/17 for Endocrinology. This patient has Grave's disease with atrial dysrhythmia, congestive cardiac failure, marked hypothyroidism. He required high doses of PTU, prednisone and beta blockade. My consultation note is part of the electronic medical record. Seen in consultation by Dr. Brant Elizalde 10/17/17. Biventricular failure, rapid atrial flutter and thyrotoxicosis; suggested management for this including DC conversion after transesophageal echocardiogram. This procedure of transesophageal echocardiogram was on 10/17/17 and he had a successful DC conversion. Consultation, Dr. Ch for Pulmonology, she felt that the right pleural effusion and the mediastinal adenopathy and hilar adenopathy was secondary to congestion from the CHF. HOSPITAL COURSE: His initial hospital stay was in the ICU and his care was managed by Dr. Bailey. He had successful cardioversion with symptomatic relief. He had no dysrhythmias after that. His heart failure was controlled with beta blockade, PINEDA inhibitor. He was anticoagulated. His thyrotoxicosis was successfully treated with PTU, prednisone, and beta blockade. He had symptoms initially from his liver with abdominal pain, nausea and vomiting. This resolved during the hospital stay spontaneously. His followup gallbladder ultrasound showed no further evidence of acute cholecystitis. On the day of discharge, he was feeling very much better. He has no chest pain , shortness of breath, or palpitations. He has had no orthopnea, paroxysmal nocturnal dyspnea. His swelling in his legs have disappeared. His right sided pretibial myxedema has improved. He still feels a little hot otherwise no particular symptoms of thyrotoxicosis. REVIEW OF SYSTEMS: Respiratory system: No cough, not bringing up any phlegm. Gastrointestinal system: Good appetite. No bowel problems. Genitourinary systems. No problems. Nervous system: No headaches or lightheadedness or syncope. PHYSICAL EXAMINATION ON DATE OF DISCHARGE: Vital Signs: Temperature 98.2, pulse 66, respirations 20, oxygen saturation 93% on room air, blood pressure 132 /77. He had no cyanosis, edema, jaundice, clubbing, or lymphadenopathy. He is warm and has damp fingers. No tremor. He has a goiter. Cardiovascular System : His pulse was regular. Normal character and volume. He has a distended external jugular vein. Heart sounds are normal. No added sounds or murmurs. No pedal edema. Respiratory system: His chest was clear. Abdomen: Soft. No masses, tenderness or organomegaly. Nervous system: Alert and oriented. Conjugate eye movements. No thyroid eye disease. He is walking normally. ASSESSMENT AND PLAN: 1. Cardiomyopathy: He presented with atrial flutter which was corrected with DC conversion. He requires anticoagulation for a month. He has an ejection fraction of less than 20%. He has an echocardiogram which was performed today, results pending. We will treat him as an outpatient with beta blockade, ARB, anticoagulation, and correct his overactive thyroid. We will hope that his heart remodels. 2. Hyperthyroidism: This is likely Grave's disease. We are waiting the results of his thyroid stimulating immunoglobulins, owing to the dye load he had during his hospitalizations, we cannot give him radioiodine for 3 months and I would not regard surgery as a good choice right now until his heart recovers. In the meantime, I am converting him from PTU to methimazole. I will taper off his steroids. 3. Abnormal liver function tests: These have recovered. He does have gallstones in his gallbladder. He does not appear to have any residual acute cholecystitis. The thickening of the gallbladder wall may have been due to passive congestion from his congestive heart failure. 4. Mediastinal and hilar adenopathy: This may be due to congestive cardiac failure; however, I will follow this up as an outpatient. 5. Right pleural effusion: This does not appear to be malignant or infectious , probably due to his heart failure. I will follow this up as an outpatient. 6. Pretibial myxedema right leg: This has improved with the steroid treatment. I will keep an eye on it. He has no evidence of changes. DISCHARGE MEDICATIONS: 1. Prednisone 10 mg a day, this will be tapered as an outpatient. 2. Carvedilol 12.5 mg twice a day. 3. Losartan 25 mg q. daily. 4. Xarelto 20 mg daily. 5. Methimazole 30 mg q. daily. He has an appointment to see me as an outpatient in 2 days. He will follow up with Dr. Elizalde as an outpatient. Counseling provided. He will check his weight and call my office if he gains more than 2 pounds in 24 hours. He will stop drinking any alcohol. He will not do any marked exertion. He will control salt in his diet. I provided him with education about Graves disease, congestive cardiac failure, cardiomyopathy, atrial flutter. [id number]/[facility] #: [id number] [facility] MED[facility] CENTERJoseluis
== END 2017-10-21 12:19 | disposition home or self-care (01) | DRG 643 ==
LOC: ED 15:16 → ICU 18:31 → MEDTELE 10-19 12:01
PROVIDERS: ADMIT Internal Medicine; ATTEND Internal Medicine
PROC: B246ZZ4 Ultrasonography of Right and Left Heart, Transesophageal (ICD-10-PCS; 2017-10-17)
PROC: 5A2204Z Restoration of Cardiac Rhythm, Single (ICD-10-PCS; 2017-10-17)
PROC: 02HV33Z Insertion of Infusion Device into Superior Vena Cava, Percutaneous Approach (ICD-10-PCS; 2017-10-17)
PROC: 0W993ZX Drainage of Right Pleural Cavity, Percutaneous Approach, Diagnostic (ICD-10-PCS; principal; 2017-10-18)
DX: E05.01 Thyrotoxicosis with diffuse goiter with thyrotoxic crisis or storm (principal); I50.21 Acute systolic (congestive) heart failure; I48.92 Unspecified atrial flutter; Z68.41 Body mass index [BMI] 40.0-44.9, adult; K80.10 Calculus of gallbladder with chronic cholecystitis without obstruction; I42.9 Cardiomyopathy, unspecified; E66.01 Morbid (severe) obesity due to excess calories; K75.89 Other specified inflammatory liver diseases; R59.0 Localized enlarged lymph nodes; F17.210 Nicotine dependence, cigarettes, uncomplicated; E83.42 Hypomagnesemia; R07.9 Chest pain, unspecified; E80.6 Other disorders of bilirubin metabolism; K31.84 Gastroparesis
CPT/HCPCS: 36415; 71045; 71275; 76536; 76705; 80048; 80053; 80076; 82140; 82150; 82533; 82550; 82553; 82607; 83605; 83615; 83690; 83721; 83735; 83880; 84100; 84157; 84436; 84439; 84443; 84445; 84479; 84481; 84484; 85025; 85379; 85610; 85730; 86140; 86376; 86803; 87340; 87641; 88112; 88305; 89051; 93005; 93306; 93308; 99285; A9270-GY; C1751; J0153; J0461; J1160; J1644; J1650; J1720; J1940; J2060; J2250; J2270; J2704; J2765; J3010; J3475; J7512; Q9967